=== PATIENT | female | born 1960 | race American Indian/Alaskan Native ===

== ENCOUNTER 2016-06-25 07:47 | Outpatient (CLI) | payer OTHER ==
--- NOTE | 2016-06-25 14:33 | PET Report ---
PET/CT:06/25/16 07:47:00 CLINICAL: Breast cancer restaging. Left axillary recurrence. RADIOPHARMACEUTICAL: 14.08mCi F18-FDG. COMPARISON: 03/19/16 PET/CT TECHNIQUE- Following intravenous injection of F-18 FDG and an approximately 60 minute uptake period, CT and PET images from the mid skull to the upper thighs were acquired with the patient in the fasted state. No contrast was administered. The CT protocol used for this PET CT study is designed for attenuation correction and anatomic localization of PET abnormalities. This personnel assistant CT is not desired to produce and cannot replace, [id number] diagnostic CT scans with specific imaging protocols for different body parts and indications. Plasma glucose at the time of this test: 116 g/dl. The standardized uptake values (SUV) are normalized to patient body weight and indicate the highest activity concentration (SUV max) in a given disease site. FINDINGS: Brain--Physiologic FDG uptake in the visualized regions of the brain. Neck--Physiologic FDG uptake . Chest--Physiologic FDG uptake in mediastinal blood pool and myocardium. Lungs--No abnormal uptake. Stable noncalcified non-FDG avid 5 mm left upper lobe lung nodule. Pleura/pericardium--No abnormal uptake. Thoracic nodes--Decreased FDG uptake in three left subpectoral lymph nodes. The previously described FDG avid left axillary mass has decreased in size with decreased FDG uptake.The mass measures approximately 3.2 x 2.2 x 3.8 cm with SUV 5.0 compared to 4.1 x 3.7 x 4.4 cm and SUV 8.7. Hepatobiliary--No abnormal uptake. liver background SUV mean, as a reference for comparing FDG studies, is 4.0 compared to 3.9 on the last exam. No liver mass. Spleen--No abnormal uptake. Pancreas--No abnormal uptake. Adrenal Glands--No abnormal uptake. Kidneys/Ureters/Bladder--No abnormal uptake. Abdominopelvic Nodes--No abnormal uptake. Bowel/Peritoneum/Mesentery--No abnormal uptake. Pelvic organs--No abnormal uptake. Bones/Soft Tissues--No abnormal uptake. Other findings: IMPRESSION- 1. Persistent left axillary mass but a smaller mass with decreased FDG uptake. 2. Persistent FDG avid left subpectoral lymph nodes with lower SUV. 3. A stable 5 mm non-FDG avid left upper lobe lung nodule. 4. No new findings.
== END 2016-06-25 07:48 | disposition home or self-care (01) ==
LOC: PET 07:47
PROVIDERS: ATTEND Internal Medicine Hematology & Oncology
DX: C50.112 Malignant neoplasm of central portion of left female breast (principal); G62.9 Polyneuropathy, unspecified; R91.1 Solitary pulmonary nodule
CPT/HCPCS: 78815; 82962; A9552

== ENCOUNTER 2016-10-15 11:15 | Outpatient (CLI) | payer OTHER ==
--- NOTE | 2016-10-15 15:16 | PET Report ---
PET SB TO MT SUBSEQUENT: HISTORY: Breast cancer. TECHNIQUE: 13.3 millicuries F-18 FDG was administered intravenously. Noncontrast CT images and PET images were obtained from the skull base to the proximal thighs. Fused images were reviewed on a workstation. The patient's blood glucose level measured 119. COMPARISON: 06/25/16. FINDINGS: BRAIN: physiologic FDG uptake in the imaged brain. NECK: physiologic FDG uptake. MEDIASTINUM: physiologic FDG uptake. LUNGS: There are two 5 mm subpleural nodules in the lateral left upper lobe which are hypometabolic and unchanged since the previous exam. No new or suspicious lung nodule. PLEURA/PERICARDIUM: physiologic FDG uptake. THORACIC LYMPH NODES: Left axillary mass or lymph nodes appear stable in size measuring 3.8 x 3.1 cm. Max SUV has increased from 5.9 to 6.8. A few small left subpectoral lymph nodes are stable in size and metabolic activity with SUV measuring 3.6. No new thoracic adenopathy. HEPATOBILIARY: physiologic FDG uptake. Mean liver SUV measures 4.2. PANCREAS: physiologic FDG uptake. SPLEEN: physiologic FDG uptake. ADRENAL GLANDS: physiologic FDG uptake. KIDNEYS/RENAL COLLECTING SYSTEMS: physiologic FDG uptake. BOWEL/MESENTERY: physiologic FDG uptake. PELVIC VISCERA: physiologic FDG uptake. ABDOMINAL/PELVIC LYMPH NODES: physiologic FDG uptake. MUSCULOSKELETAL: physiologic FDG uptake. IMPRESSION: Mild progression of disease is demonstrated since 06/25/16. The left axillary mass or adenopathy is stable in size but demonstrates slight increase in metabolic activity. Small left subpectoral lymph nodes are stable. Stable left upper lobe nodules which are probably benign. No new areas of disease.
== END 2016-10-15 11:16 | disposition home or self-care (01) ==
LOC: PET 11:15
PROVIDERS: ATTEND Internal Medicine Hematology & Oncology
DX: C50.112 Malignant neoplasm of central portion of left female breast (principal); R91.1 Solitary pulmonary nodule; E11.9 Type 2 diabetes mellitus without complications; I10 Essential (primary) hypertension; Z79.899 Other long term (current) drug therapy
CPT/HCPCS: 78815; 82962; A9552

== ENCOUNTER 2016-11-03 13:27 | Emergency (ER) | payer OTHER ==
--- NOTE | 2016-11-03 13:36 | Emergency Department Report ---
Chief Complaint: Syncope Stated Complaint: PASSED OUT/HIT HEAD Time Seen by Provider: 11/03/16 13:29 - HPI History of Present Illness: PT states she blackout on Wednesday while in her mother's kitchen. PT states she was standing up and then woke up on the floor. Witnessed by granddaughter PT states since Wednesday, pt has had intermittent dizziness . PT reports vertigo last night when laying down - ROS Review of Systems: + syncope + neck pain - Exam Physical Exam: pt is alert and appropriate gcs 15 no post mid line C-spine tenderness MSE screening note: Focused history and physical exam performed. Due to findings the following was ordered: ct, ekg, labs ED Disposition for MSE Condition: Stable
[2016-11-03 15:05] LABS: Basophils % (Auto) 1.6 % (0.0-1.8); Hematocrit 36.9 % (30.3-42.9); Hemoglobin 12.2 gm/dl (10.1-14.3); Mean Corpuscular HGB Conc 33 % (30-34); Mean Corpuscular Hemoglobin 31 pg (28-32); Mean Corpuscular Volume 95 fl (79-97); Red Blood Count 3.88 M/mm3 (3.65-5.03); Red Cell Distribution Width 17.7 % (13.2-15.2); White Blood Count 4.8 K/mm3 (4.5-11.0)
[2016-11-03 15:15] LABS: INR 0.85 (0.87-1.13)
[2016-11-03 15:16] LABS: Partial Thromboplastin Time < 20.0 Sec. (24.2-36.6)
[2016-11-03 15:19] LABS: Alanine Aminotransferase 22 units/L (7-56); Albumin 4.1 g/dL (3.9-5); Albumin/Globulin Ratio 1.1 %; Alkaline Phosphatase 57 units/L (35-129); Anion Gap 19 mmol/L; BUN/Creatinine Ratio 15.71; Blood Urea Nitrogen 11 mg/dL (7-17); Calcium 9.3 mg/dL (8.4-10.2); Carbon Dioxide 23 mmol/L (22-30); Glucose 128 mg/dL (65-100); Potassium 3.4 mmol/L (3.6-5.0); Sodium 138 mmol/L (137-145); Total Protein 7.7 g/dL (6.3-8.2)
[2016-11-03 15:46] LABS: Platelet Count 162 K/mm3 (140-440)
--- NOTE | 2016-11-03 15:49 | Cat Scan Report ---
CRANIAL CT SCAN: History: Syncope. Serial contiguous axial images were obtained through the cranium. Intravenous contrast material was not administered. The ventricles are normal in size and appearance. There is no mass effect or midline shift. No areas of abnormally increased or decreased attenuation are seen. No mass lesion is seen. The mastoid air cells and visualized portions of the sinuses are normal. IMPRESSION: Cranial CT scan within normal limits.
--- NOTE | 2016-11-03 15:55 | Cat Scan Report ---
CT of the cervical spine without contrast. History: Neck pain after syncope. Findings: There is no evidence of fracture or subluxation. Multilevel spondylosis is seen in the lower cervical spine, most pronounced at C56 and 67. A prominent osteophyte/ disc complex is seen at C5-6 on the left. Similar but less pronounced finding is seen at C6-7 on the left. 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 There is no evidence of fracture. Impression: No acute findings. Multilevel spondylosis in the lower cervical spine is described.
--- NOTE | 2016-11-04 00:22 | Emergency Department Report ---
ED Dizziness HPI - General Chief Complaint: Syncope Stated Complaint: PASSED OUT/HIT HEAD Time Seen by Provider: 11/03/16 13:29 Source: patient Mode of arrival: Ambulatory Limitations: No Limitations - History of Present Illness Initial Comments: 56 years old female coming was dizziness she stated that it started on Wednesday patient fell hit her head in her dizziness get worse since then. The patient is breast cancer on chemotherapy. She denied any focal weakness or numbness or tingling sensation no loss of consciousness no other injury she stated that when she walks she feels the room is spinning never had any history of similar condition before. Complaint: dizziness, lightheadedness - Related Data Home Medications Medication Instructions Recorded Confirmed Last Taken Biotin 5,000 mcg PO BID 01/01/16 01/01/16 01/07/16 Cholecalciferol Vit D3 [Vitamin D3] 1,000 unit PO QDAY 01/01/16 01/01/16 Cyanocobalamin [Vitamin B-12] 500 mcg PO DAILY 01/01/16 01/01/16 01/07/16 Pregabalin [Lyrica] 150 mg PO BID 01/01/16 01/01/16 01/07/16 Previous Rx's Medication Instructions Recorded Last Taken Type HYDROcodone/APAP 5-325 [Wendel 1 each PO Q6HR PRN #30 tablet 01/08/16 Unknown Rx 5/325] Meclizine [Antivert] 25 mg PO TID PRN #20 tablet 11/04/16 Unknown Rx Allergies Allergy/AdvReac Type Severity Reaction Status Date / Time No Known Allergies Allergy Verified 01/08/16 06:35 ED Review of Systems ROS: Stated complaint: PASSED OUT/HIT HEAD Other details as noted in HPI Comment: All other systems reviewed and negative Constitutional: denies: chills, fever ENT: denies: ear pain, throat pain, hearing loss Respiratory: denies: cough, shortness of breath Cardiovascular: denies: chest pain, palpitations Gastrointestinal: denies: abdominal pain, nausea, vomiting, diarrhea Genitourinary: denies: dysuria, frequency Neurological: denies: headache ED Past Medical Hx - Past Medical History Hx Hypertension: Yes Hx CVA: No Hx Congestive Heart Failure: No Hx Diabetes: Yes (FOR 4 YRS, DIET CONTROLLED) Hx Deep Vein Thrombosis: No Hx Arthritis: No Hx Seizures: No Hx Asthma: No Hx HIV: No - Surgical History Additional Surgical History: bilateral breast Ca with removal,with active ca in left lymph nodes-Chemo - Social History Smoking Status: Never Smoker Substance Use Type: None - Medications Home Medications: Home Medications Medication Instructions Recorded Confirmed Last Taken Type Biotin 5,000 mcg PO BID 01/01/16 01/01/16 01/07/16 History Cholecalciferol Vit D3 [Vitamin D3] 1,000 unit PO QDAY 01/01/16 01/01/16 History Cyanocobalamin [Vitamin B-12] 500 mcg PO DAILY 01/01/16 01/01/16 01/07/16 History Pregabalin [Lyrica] 150 mg PO BID 01/01/16 01/01/16 01/07/16 History HYDROcodone/APAP 5-325 [Wendel 1 each PO Q6HR PRN #30 tablet 01/08/16 Unknown Rx 5/325] Meclizine [Antivert] 25 mg PO TID PRN #20 tablet 11/04/16 Unknown Rx ED Physical Exam - General Limitations: No Limitations General appearance: alert, in no apparent distress - Head Head exam: Present: atraumatic - Eye Eye exam: Present: normal appearance - ENT ENT exam: Present: normal exam - Neck Neck exam: Present: normal inspection. Absent: tenderness, meningismus, full ROM - Respiratory Respiratory exam: Present: normal lung sounds bilaterally. Absent: respiratory distress, wheezes, rales, rhonchi, stridor, chest wall tenderness, accessory muscle use, decreased breath sounds, prolonged expiratory - Cardiovascular Cardiovascular Exam: Present: tachycardia - GI/Abdominal GI/Abdominal exam: Present: soft. Absent: distended, tenderness, guarding, rebound, organomegaly, mass, bruit, pulsatile mass, hernia - Extremities Exam Extremities exam: Present: full ROM. Absent: tenderness, pedal edema - Back Exam Back exam: Present: normal inspection. Absent: tenderness, CVA tenderness (R), CVA tenderness (L), muscle spasm, paraspinal tenderness, vertebral tenderness - Neurological Exam Neurological exam: Present: alert, oriented X3, CN II-XII intact, normal gait, reflexes normal. Absent: motor sensory deficit - Skin Skin exam: Present: warm, dry, intact ED Course Vital Signs 11/03/16 11/04/16 11/04/16 13:31 00:05 00:09 Temperature 98.8 F 98.4 F Pulse Rate 112 H 94 H Respiratory 20 18 Rate Blood Pressure 147/96 127/70 Blood Pressure 127/70 [Right] O2 Sat by Pulse 100 98 Oximetry 11/04/16 11/04/16 11/04/16 00:15 02:11 02:15 Temperature Pulse Rate Respiratory Rate Blood Pressure 136/84 136/84 136/84 Blood Pressure [Right] O2 Sat by Pulse 100 95 97 Oximetry 11/04/16 11/04/16 02:31 04:42 Temperature 97.6 F Pulse Rate 95 H Respiratory 16 Rate Blood Pressure 136/84 Blood Pressure 119/65 [Right] O2 Sat by Pulse 97 99 Oximetry - Reevaluation(s) Reevaluation #1: 11/04/16 05:41 Patient stated that she is feeling much better improved with the medication no dizziness. Will discharge patient home to follow-up with her oncologist as scheduled. ED Medical Decision Making - Lab Data Result diagrams: 11/03/16 14:15 11/03/16 14:15 Critical care attestation.: If time is entered above; I have spent that time in minutes in the direct care of this critically ill patient, excluding procedure time. ED Disposition Clinical Impression: Dizziness Disposition: DC-01 TO HOME OR SELFCARE Is pt being admited?: No Does the pt Need Aspirin: No Condition: Stable Instructions: Dizziness (ED) Prescriptions: Meclizine [Antivert] 25 mg PO TID PRN #20 tablet PRN Reason: Vertigo Referrals: DR DEMARCUS [Other] - 3-5 Days
[2016-11-04 00:44] LABS: Bacteria,Urine 1+ /HPF (Negative); Bilirubin,Urine NEG (Negative); Blood,Urine SM (Negative); Ketones,Urine TR mg/dL (Negative); Leukocyte Esterase,Urine TR (Negative); Mucus,Urine FEW /HPF; Nitrite,Urine NEG (Negative); Protein,Urine <15 mg/dL mg/dL (Negative); Urobilinogen,Urine < 2.0 mg/dL (<2.0)
[2016-11-04] MEDS: ANTIVERT PO ONE (01:12)
[2016-11-04] MEDS: NACL 0.9% 1000 ML 1,000 ML IV ONE (01:12)
--- NOTE | 2016-11-04 05:29 | Cat Scan Report ---
FINAL REPORT PROCEDURE: CT ANGIO CHEST TECHNIQUE: Computerized axial tomographic angiography of the chest and pulmonary arteries was performed after the IV injection of iodinated nonionic contrast. The image data was postprocessed using maximum intensity projection (MIP) and 2-dimensional multiplanar reformatted (MPR) techniques. The examination is specifically tailored to the evaluation of the pulmonary arteries per clinical request. HISTORY: Short of breath 786.09, chest pain 786.50, CHEST PAIN WITH SYNCOPE COMPARISON: No prior studies are available for comparison. FINDINGS: Heart and pericardium: Normal. Thoracic aorta: Normal. Pulmonary vasculature: Normal. No pulmonary emboli. Lymph nodes: No enlarged thoracic lymph nodes. Lungs: Lungs are expanded. There is a 12 millimeter pleural-based nodular density in the left upper lung which could be focal pleural thickening, scarring, infiltrate or nodule. There is a 2nd nodule in the left upper lung measuring 8 millimeters. There is a 3rd noncalcified nodule at the left lung base measuring 9 millimeters. Possibility of metastatic malignancy cannot be excluded.. Pleural space: There are no effusions or pneumothoraces.. There are are bilateral breast implants. There are surgical clips in the left axilla. There is a 4 centimeter left axillary mass. Malignancy cannot be excluded. IMPRESSION: There is no pulmonary embolism. There is no thoracic aortic aneurysm or dissection.. There are no infiltrates, effusions or pneumothoraces. There are 3 left-sided pulmonary nodules. There is a mass in the left axilla. Metastatic malignancy cannot be excluded.
[2016-11-04 06:02] VITALS: BP 113/65
== END 2016-11-04 06:10 | disposition home or self-care (01) ==
LOC: ED 13:27
DX: R42 Dizziness and giddiness (principal); E11.9 Type 2 diabetes mellitus without complications; I10 Essential (primary) hypertension; C50.919 Malignant neoplasm of unspecified site of unspecified female breast
CPT/HCPCS: 36415; 70450; 71275; 72125; 80053; 81001; 84484; 85025; 85379; 85610; 85730; 93005; 93010; 96360; 99284; J7030; Q9967

== ENCOUNTER 2017-05-06 08:13 | Outpatient (CLI) | payer MEDICAID ==
[2017-05-06] MEDS ORDERED: FLUSH HEPARIN IV ONE ×2 (11:20→11:22)
--- NOTE | 2017-05-10 13:30 | PET Report ---
PET/CT:05/06/17 08:13:00 CLINICAL: Breast cancer restaging. History of left axillary recurrence. RADIOPHARMACEUTICAL: 15.12mCi F18-FDG. COMPARISON: 01/07/17 PET/CT TECHNIQUE- Following intravenous injection of F-18 FDG and an approximately 60 minute uptake period, CT and PET images from the mid skull to the upper thighs were acquired with the patient in the fasted state. No contrast was administered. The CT protocol used for this PET CT study is designed for attenuation correction and anatomic localization of PET abnormalities. This injection press operator CT is not desired to produce and cannot replace, [id number]-art diagnostic CT scans with specific imaging protocols for different body parts and indications. Plasma glucose at the time of this test: 96g/dl. The standardized uptake values (SUV) are normalized to patient body weight and indicate the highest activity concentration (SUV max) in a given disease site. FINDINGS: Brain--Physiologic FDG uptake in the visualized regions of the brain. Neck--Physiologic FDG uptake in mucosal structures. Chest--Physiologic FDG uptake in mediastinal blood pool and myocardium. Lungs--The previously identified FDG avid left upper lobe lung nodule now measures 1.2 x 0.8 cm with SUV 2.0 compared to 1.0 cm and SUV 2.9 on the last exam. A second pleural-based left upper lobe nodule measures 1.2 x 1.0 cm with SUV 2.3 compared to 0.8 and no FDG uptake on the last exam. Pleura/pericardium--No abnormal uptake. Thoracic nodes--The previously described left subclavian FDG avid soft tissue mass has increased in size and measures approximately 5.2 x 4.7 cm in the axial plane with SUV 11.2 compared to 4.5 x 3.2 cm and SUV 8.0 a last exam. The mass is actually larger in the coronal plane and extends to abut more of the left breast implant. There is also new fluid at the upper posterior aspect of the implant. Hepatobiliary--No abnormal uptake. Liver background SUV mean, as a reference for comparing FDG studies, is 3.7 compared to 3.1 on the last exam. No liver mass. Spleen--No abnormal uptake. Pancreas--No abnormal uptake. Adrenal Glands--No abnormal uptake. Kidneys/Ureters/Bladder--No abnormal uptake. Abdominopelvic Nodes--No abnormal uptake. Bowel/Peritoneum/Mesentery--No abnormal uptake. Pelvic organs--No abnormal uptake. Bones/Soft Tissues--No abnormal uptake. No suspicious bone lesions. Other findings: IMPRESSION-Progression of disease with increased size and increased FDG uptake in known left axillary tumor. Increased size of two left upper lobe lung nodules. Both nodules are now FDG avid but SUV values are mixed. No evidence of hepatic or skeletal metastasis.
== END 2017-05-06 08:14 | disposition home or self-care (01) ==
LOC: PET 08:13
PROVIDERS: ATTEND Internal Medicine Hematology & Oncology
DX: C50.112 Malignant neoplasm of central portion of left female breast (principal); G62.9 Polyneuropathy, unspecified; R91.1 Solitary pulmonary nodule; R91.8 Other nonspecific abnormal finding of lung field; Z98.82 Breast implant status; Z79.899 Other long term (current) drug therapy
CPT/HCPCS: 78815; 82962; A9552; J1642

== ENCOUNTER 2017-05-14 11:28 | Inpatient (IN) | payer MEDICAID ==
[2017-05-14 13:17] LABS: Basophils % (Auto) 0.7 % (0.0-1.8); Eosinophils % (Auto) 0.4 % (0.0-4.3); Hematocrit 34.3 % (30.3-42.9); Hemoglobin 11.3 gm/dl (10.1-14.3); Lymphocytes # (Auto) 0.8 K/mm3 (1.2-5.4); Lymphocytes % (Auto) 21.6 % (13.4-35.0); Mean Corpuscular HGB Conc 33 % (30-34); Mean Corpuscular Hemoglobin 30 pg (28-32); Mean Corpuscular Volume 90 fl (79-97); Monocytes # (Auto) 0.4 K/mm3 (0.0-0.8); Monocytes % (Auto) 11.5 % (0.0-7.3); Platelet Count 241 K/mm3 (140-440); Red Blood Count 3.81 M/mm3 (3.65-5.03); Red Cell Distribution Width 18.9 % (13.2-15.2)
[2017-05-14 13:32] LABS: BUN/Creatinine Ratio 24; Blood Urea Nitrogen 12 mg/dL (7-17); Calcium 9.4 mg/dL (8.4-10.2); Hemolysis Index 13
--- NOTE | 2017-05-14 13:39 | Cat Scan Report ---
CT HEAD WITHOUT CONTRAST: HISTORY: Dizziness, fall. TECHNIQUE: Sequential 2.5mm CT images. COMPARISON: 11/03/16. FINDINGS: Cerebral Parenchyma: Within normal limits. Cerebellum: There is an ill-defined area of edema in the right cerebellar hemisphere measuring up to 4.1 x 3.7 cm. There is mild mass effect on the fourth ventricle. Brainstem: Within normal limits. Ventricles: The ventricles are at the upper limits of normal size and have increased slightly since 11/03/16. Sella: Normal. Extra-axial spaces: Normal. Basal Cisterns: Normal. Intracranial Hemorrhage: None. Midline Shift: None. Calvarium: Normal. Sinuses: Normal. Mastoid Air Cells: Normal. Visualized Orbits: Normal. IMPRESSION: Ill-defined area of edema in the right cerebellar hemisphere concerning for an underlying tumor. Ischemic insult could be considered but is thought less likely. Followup MRI with contrast is recommended.
[2017-05-14] MEDS ORDERED: NACL 0.9% 1000 ML 1,000 ML IV ONE (14:03)
[2017-05-14 14:50] LABS: INR 0.91 (0.87-1.13)
[2017-05-14 14:51] LABS: Partial Thromboplastin Time 24.7 Sec. (24.2-36.6)
--- NOTE | 2017-05-14 16:53 | Emergency Department Report ---
HPI <AGA SCHULTE - Last Filed: 05/14/17 23:15> - HPI HPI: 57-year-old -[place] female with a history of high blood pressure presents to ED, with severe dizziness. Symptoms started about 3 hours prior to presentation. She almost fell, due to her symptoms she presented to ED. She denies any chest pain, shortness of breath, nausea, vomiting, diaphoresis. She has a history of hypertension and has been compliant with her medication. She denies any focal weakness. <LUISA WHITE - Last Filed: 05/21/17 21:03> - General Chief Complaint: Dizziness Time Seen by Provider: 05/14/17 14:00 ED Past Medical Hx <AGA SCHULTE - Last Filed: 05/14/17 23:15> - Past Medical History Hx Hypertension: Yes Hx CVA: No Hx Congestive Heart Failure: No Hx Diabetes: Yes Hx Deep Vein Thrombosis: No Hx of Cancer: Yes (breast) Hx Arthritis: No Hx Seizures: No Hx Asthma: No Hx HIV: No - Surgical History Additional Surgical History: bilateral breast Ca with removal,with active ca in left lymph nodes-Chemo - Social History Smoking Status: Never Smoker Substance Use Type: None <LUISA WHITE - Last Filed: 05/21/17 21:03> - Medications Home Medications: Home Medications Medication Instructions Recorded Confirmed Last Taken Type Acetaminophen [Acetaminophen TAB] 650 mg PO Q4H PRN tablet 05/18/17 Unknown Rx Cholecalciferol Vit D3 [Vitamin D3] 1,000 unit PO QDAY tablet 05/18/17 Unknown Rx Cyanocobalamin [Vitamin B-12] 500 mcg PO QDAY tablet 05/18/17 Unknown Rx Dexamethasone [Decadron] 4 mg IV Q6HR vial 05/18/17 Unknown Rx Docusate Sodium [Colace CAP] 100 mg PO BID capsule 05/18/17 Unknown Rx Duloxetine HCl [Irenka] 40 mg PO DAILY 05/18/17 Unknown Rx Famotidine [Pepcid] 20 mg PO QDAY tablet 05/18/17 Unknown Rx HYDROcodone/APAP 5-325 [[place] 1 each PO Q6HR PRN tablet 05/18/17 Unknown Rx 5-325 mg TAB] Meclizine [Antivert] 25 mg PO TID PRN tablet 05/18/17 Unknown Rx Ondansetron [Zofran INJ] 4 mg IV Q4H PRN vial 05/18/17 Unknown Rx Pregabalin [Lyrica] 150 mg PO BID capsule 05/18/17 Unknown Rx ED Review of Systems ROS: Stated complaint: DIZZINESS Other details as noted in HPI <AGA SCHULTE - Last Filed: 05/14/17 23:15> ROS: Stated complaint: DIZZINESS Other details as noted in HPI Comment: All other systems reviewed and negative Gastrointestinal: denies: abdominal pain, nausea, vomiting Genitourinary: denies: urgency, dysuria Neurological: other (dizziness). denies: headache, weakness <LUISA WHITE - Last Filed: 05/21/17 21:03> Physical Exam - Physical Exam Vital Signs: Vital Signs 05/14/17 05/14/17 05/14/17 11:32 12:41 12:45 Temperature 97.5 F L Pulse Rate 121 H Respiratory 16 Rate Blood Pressure 152/97 137/85 Blood Pressure [Right] O2 Sat by Pulse 98 98 98 Oximetry 05/14/17 05/14/17 05/14/17 14:53 15:00 15:15 Temperature Pulse Rate Respiratory Rate Blood Pressure 132/92 131/88 131/88 Blood Pressure [Right] O2 Sat by Pulse 97 97 100 Oximetry 05/14/17 05/14/17 05/14/17 15:30 15:45 16:00 Temperature Pulse Rate Respiratory Rate Blood Pressure 145/88 131/88 143/97 Blood Pressure [Right] O2 Sat by Pulse 98 97 98 Oximetry 05/14/17 05/14/17 05/14/17 16:15 16:30 16:45 Temperature Pulse Rate Respiratory Rate Blood Pressure 143/97 141/98 141/98 Blood Pressure [Right] O2 Sat by Pulse 99 99 100 Oximetry 05/14/17 05/14/17 05/14/17 17:00 18:01 18:15 Temperature Pulse Rate Respiratory Rate Blood Pressure 143/95 136/85 136/85 Blood Pressure [Right] O2 Sat by Pulse 98 100 98 Oximetry 05/14/17 05/14/17 05/14/17 18:30 18:45 19:00 Temperature Pulse Rate Respiratory Rate Blood Pressure 129/91 129/91 137/87 Blood Pressure [Right] O2 Sat by Pulse 98 98 98 Oximetry 05/14/17 05/14/17 05/14/17 19:10 19:15 19:31 Temperature 98.1 F Pulse Rate 97 H 95 H Respiratory 18 16 Rate Blood Pressure 137/87 139/91 Blood Pressure 137/87 [Right] O2 Sat by Pulse 97 98 97 Oximetry 05/14/17 05/14/17 05/14/17 19:45 20:00 20:15 Temperature Pulse Rate 96 H 96 H 103 H Respiratory 17 17 20 Rate Blood Pressure 139/91 138/86 138/86 Blood Pressure [Right] O2 Sat by Pulse 96 99 98 Oximetry 05/14/17 05/14/17 05/14/17 21:03 21:15 21:30 Temperature Pulse Rate 100 H 96 H Respiratory 16 17 Rate Blood Pressure 125/86 125/86 144/94 Blood Pressure [Right] O2 Sat by Pulse 99 97 Oximetry 05/14/17 05/14/17 05/14/17 21:45 22:00 22:15 Temperature Pulse Rate 97 H 95 H 100 H Respiratory 17 18 12 Rate Blood Pressure 138/86 141/96 141/96 Blood Pressure [Right] O2 Sat by Pulse 98 98 99 Oximetry 05/14/17 22:30 Temperature Pulse Rate 97 H Respiratory 16 Rate Blood Pressure 156/99 Blood Pressure [Right] O2 Sat by Pulse 97 Oximetry <AGA SCHULTE - Last Filed: 05/14/17 23:15> - Physical Exam Vital Signs: Vital Signs 05/14/17 05/14/17 05/14/17 11:32 12:41 12:45 Temperature 97.5 F L Pulse Rate 121 H Respiratory 16 Rate Blood Pressure 152/97 137/85 O2 Sat by Pulse 98 98 98 Oximetry 05/14/17 05/14/17 14:53 15:00 Temperature Pulse Rate Respiratory Rate Blood Pressure 132/92 131/88 O2 Sat by Pulse 97 97 Oximetry Physical Exam: - Physical Exam Physical Exam: - General Limitations: No Limitations General appearance: alert, in no apparent distress, obese - Head Head exam: Present: atraumatic, normocephalic - Eye Eye exam: Present: normal appearance - ENT ENT exam: Present: mucous membranes moist - Neck Neck exam: Present: normal inspection - Respiratory Respiratory exam: Present: normal lung sounds bilaterally. Absent: respiratory distress - Cardiovascular Cardiovascular Exam: Present: normal rhythm, tachycardia. Absent: systolic murmur, diastolic murmur, rubs, gallop - GI/Abdominal GI/Abdominal exam: Present: soft, normal bowel sounds - Extremities Exam Extremities exam: Present: normal inspection - Back Exam Back exam: Present: normal inspection - Neurological Exam Neurological exam: Present: alert, oriented X3 - Psychiatric Psychiatric exam: normal affect and mood - Skin Skin exam: Present: warm, dry, intact, normal color. Absent: rash <LABADYLUISA - Last Filed: 05/21/17 21:03> ED Course Vital Signs 05/14/17 05/14/17 05/14/17 11:32 12:41 12:45 Temperature 97.5 F L Pulse Rate 121 H Respiratory 16 Rate Blood Pressure 152/97 137/85 Blood Pressure [Right] O2 Sat by Pulse 98 98 98 Oximetry 05/14/17 05/14/17 05/14/17 14:53 15:00 15:15 Temperature Pulse Rate Respiratory Rate Blood Pressure 132/92 131/88 131/88 Blood Pressure [Right] O2 Sat by Pulse 97 97 100 Oximetry 05/14/17 05/14/17 05/14/17 15:30 15:45 16:00 Temperature Pulse Rate Respiratory Rate Blood Pressure 145/88 131/88 143/97 Blood Pressure [Right] O2 Sat by Pulse 98 97 98 Oximetry 05/14/17 05/14/17 05/14/17 16:15 16:30 16:45 Temperature Pulse Rate Respiratory Rate Blood Pressure 143/97 141/98 141/98 Blood Pressure [Right] O2 Sat by Pulse 99 99 100 Oximetry 05/14/17 05/14/17 05/14/17 17:00 18:01 18:15 Temperature Pulse Rate Respiratory Rate Blood Pressure 143/95 136/85 136/85 Blood Pressure [Right] O2 Sat by Pulse 98 100 98 Oximetry 05/14/17 05/14/17 05/14/17 18:30 18:45 19:00 Temperature Pulse Rate Respiratory Rate Blood Pressure 129/91 129/91 137/87 Blood Pressure [Right] O2 Sat by Pulse 98 98 98 Oximetry 05/14/17 05/14/17 05/14/17 19:10 19:15 19:31 Temperature 98.1 F Pulse Rate 97 H 95 H Respiratory 18 16 Rate Blood Pressure 137/87 139/91 Blood Pressure 137/87 [Right] O2 Sat by Pulse 97 98 97 Oximetry 05/14/17 05/14/17 05/14/17 19:45 20:00 20:15 Temperature Pulse Rate 96 H 96 H 103 H Respiratory 17 17 20 Rate Blood Pressure 139/91 138/86 138/86 Blood Pressure [Right] O2 Sat by Pulse 96 99 98 Oximetry 05/14/17 05/14/17 05/14/17 21:03 21:15 21:30 Temperature Pulse Rate 100 H 96 H Respiratory 16 17 Rate Blood Pressure 125/86 125/86 144/94 Blood Pressure [Right] O2 Sat by Pulse 99 97 Oximetry 05/14/17 05/14/17 05/14/17 21:45 22:00 22:15 Temperature Pulse Rate 97 H 95 H 100 H Respiratory 17 18 12 Rate Blood Pressure 138/86 141/96 141/96 Blood Pressure [Right] O2 Sat by Pulse 98 98 99 Oximetry 05/14/17 22:30 Temperature Pulse Rate 97 H Respiratory 16 Rate Blood Pressure 156/99 Blood Pressure [Right] O2 Sat by Pulse 97 Oximetry <AGA SCHULTE - Last Filed: 05/14/17 23:15> Vital Signs 05/14/17 05/14/17 05/14/17 11:32 12:41 12:45 Temperature 97.5 F L Pulse Rate 121 H Respiratory 16 Rate Blood Pressure 152/97 137/85 O2 Sat by Pulse 98 98 98 Oximetry 05/14/17 05/14/17 14:53 15:00 Temperature Pulse Rate Respiratory Rate Blood Pressure 132/92 131/88 O2 Sat by Pulse 97 97 Oximetry <LUISA WHITE - Last Filed: 05/21/17 21:03> ED Medical Decision Making - Lab Data Result diagrams: 05/14/17 13:07 05/14/17 13:07 - Medical Decision Making Patient was turned over my care awaiting MRI results MRI does show a cerebellar mass with some edema and some mass effect. Patient is awake alert oriented 3 good airway not somnolent I did this case with Dr. merritt recommends admission. 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 Patient was amenable to this she will be given some Decadron and neuro checks and case will be discussed with the hospitalist for admit, pt is afebrile and stable airway, no somnolence or intractable n/v at this time <AGA SCHULTE - Last Filed: 05/14/17 23:15> - Lab Data Result diagrams: 05/19/17 05:45 05/19/17 05:45 <LUISA WHITE - Last Filed: 05/21/17 21:03> Critical care attestation.: If time is entered above; I have spent that time in minutes in the direct care of this critically ill patient, excluding procedure time. <AGA SCHULTE - Last Filed: 05/14/17 23:15> Critical care attestation.: If time is entered above; I have spent that time in minutes in the direct care of this critically ill patient, excluding procedure time. <LUISA WHITE - Last Filed: 05/21/17 21:03> ED Disposition Is pt being admited?: Yes Time of Disposition: 23:20 <AGA SCHULTE - Last Filed: 05/14/17 23:15> Is pt being admited?: Yes Does the pt Need Aspirin: No <LUISA WHITE - Last Filed: 05/21/17 21:03> Clinical Impression: Dizziness, Cerebellar mass, Breast CA Disposition: -09 OP ADMIT IP TO THIS HOSP Condition: Stable
--- NOTE | 2017-05-14 22:29 | Magnetic Resonance Report ---
FINAL REPORT EXAM: MR BRAIN WO/W CON HISTORY: SEVERE DIZZINESS, ABNORMAL CT dizziness, headaches, history of breast cancer TECHNIQUE: Multiplanar multisequence pre and post gadolinium MR images of the brain were performed. 15 mL MultiHance was utilized for contrast enhancement. Comparison: None FINDINGS: There is an enhancing 1.8 x 1.6 x 2.1 centimeter heterogeneously iso to hypointense T1, hypointense T2, and heterogeneously lobular enhancing contrasted right cerebellar mass with significant perianal edema causing mass effect on the 4th ventricle and dorsal right vicki. There is edema of the cerebellar folia. There is effacement of the right ambient cistern, cerebral aqua duct, and medulla oblongata but no evidence for hydrocephalus. The right superior and middle cerebellar peduncles are distorted. Cerebellar tonsils are displaced. The degree of edema remote from lesion suggests there may be additional smaller lesions closer to the midline. There is subtle increased postcontrast T1 midline cerebellar T1 signal which is felt to represent artifact from flow rather than additional metastatic foci. There is no subarachnoid seeding identified. There is scattered bilateral periventricular white matter foci of prolonged T2 signal intensity and periventricular white matter prolonged FLAIR signal intensity. None of these additional supratentorial lesions enhance and are therefore more suggestive of a small vessel ischemic process rather than metastatic disease. Incidental identified cavum vergae. There is fluid and mucosal thickening of the right sphenoid sinus. The remaining paranasal sinuses are well aerated. Cerebellopontine angles are within normal limits. There are normal supratentorial and infratentorial T2 flow voids. Dural venous sinuses are patent. IMPRESSION: 1.8 x 1.6 x 1.2 centimeter right cerebellar hemispheric enhancing lesion with significant surrounding edema and mass effect. Questionable midline posterior fossa subtle enhancing second lesion possibly of the vermis which could help account for the additional edema and mass-effect on the ambient cisterns/aqua duct, cerebellar peduncles. Scattered periventricular and subcortical white matter foci of prolonged FLAIR signal intensity that do not show focal restriction of the diffusion and do not show enhancement more compatible with small vessel ischemic disease, slightly advanced for the patient's age. Right sphenoid sinusitis.
[2017-05-14] MEDS ORDERED: DECADRON IV ONE (22:55)
[2017-05-14] MEDS ORDERED: ZOFRAN IV ONE (23:29)
[2017-05-15] MEDS ORDERED: TYLENOL PO PRN (00:53)
[2017-05-15] MEDS ORDERED: ZOFRAN IV PRN (00:53)
[2017-05-15] MEDS ORDERED: ANTIVERT PO PRN (01:43)
[2017-05-15] MEDS: NORCO 5/325 PO PRN (03:04)
[2017-05-15] MEDS ORDERED: NON-FORMULARY (Pregabalin [Lyrica] 150 MG) PO SCH (10:00)
[2017-05-15] MEDS ORDERED: NON-FORMULARY (Biotin [Biotin] 5,000 MCG) PO SCH (10:00)
[2017-05-15] MEDS ORDERED: VITAMIN B-12 PO SCH (10:00)
--- NOTE | 2017-05-15 10:38 | Progress Note ---
Assessment and Plan Assessment and plan: Right cerebellar lesion with significant edema and mass effect. Etiology likely static breast CA. Start Decadron every 6 hours. Neurology consultation. Patient may need further transferred to facility with neurosurgery coverage. We will discuss with oncology plan of care. Metastatic Left breast cancer. Patient is stage III left breast cancer status post bilateral total mastectomy and left axillary lymph node dissection in April 2010. Also, status post chemotherapy and left axillary mass excision December 2015. Oncology consultation pending. History Interval history: Patient reports that her dizziness has resolved. Hospitalist Physical - Constitutional Vitals: Temp Pulse Resp BP Pulse Ox 98.1 F 99 H 18 117/75 96 05/15/17 07:50 05/15/17 07:50 05/15/17 07:50 05/15/17 07:50 05/15/17 07:50 General appearance: Present: no acute distress, well-nourished - EENT Eyes: Present: PERRL, EOM intact ENT: hearing intact, clear oral mucosa, dentition normal - Neck Neck: Present: supple, normal ROM - Respiratory Respiratory effort: normal Respiratory: bilateral: CTA - Cardiovascular Rhythm: regular Heart Sounds: Present: S1 & S2. Absent: gallop, rub - Extremities Extremities: no ischemia, No edema, Full ROM - Abdominal General gastrointestinal: soft, non-tender, non-distended, normal bowel sounds - Integumentary Integumentary: Present: clear, warm, dry - Neurologic Neurologic: CNII-XII intact, moves all extremities Results - Labs CBC & Chem 7: 05/14/17 13:07 05/14/17 13:07 Labs: Laboratory Last Values WBC 3.6 K/mm3 (4.5-11.0) L 05/14/17 13:07 RBC 3.81 M/mm3 (3.65-5.03) 05/14/17 13:07 Hgb 11.3 gm/dl (10.1-14.3) 05/14/17 13:07 Hct 34.3 % (30.3-42.9) 05/14/17 13:07 MCV 90 fl (79-97) 05/14/17 13:07 MCH 30 pg (28-32) 05/14/17 13:07 MCHC 33 % (30-34) 05/14/17 13:07 RDW 18.9 % (13.2-15.2) H 05/14/17 13:07 Plt Count 241 K/mm3 (140-440) 05/14/17 13:07 Lymph % (Auto) 21.6 % (13.4-35.0) 05/14/17 13:07 Clark % (Auto) 11.5 % (0.0-7.3) H 05/14/17 13:07 Eos % (Auto) 0.4 % (0.0-4.3) 05/14/17 13:07 Baso % (Auto) 0.7 % (0.0-1.8) 05/14/17 13:07 Lymph # 0.8 K/mm3 (1.2-5.4) L 05/14/17 13:07 Clark # 0.4 K/mm3 (0.0-0.8) 05/14/17 13:07 Eos # 0.0 K/mm3 (0.0-0.4) 05/14/17 13:07 Baso # 0.0 K/mm3 (0.0-0.1) 05/14/17 13:07 Seg Neutrophils % 65.8 % (40.0-70.0) 05/14/17 13:07 Seg Neutrophils # 2.4 K/mm3 (1.8-7.7) 05/14/17 13:07 PT 12.7 Sec. (12.2-14.9) 05/14/17 14:13 INR 0.91 (0.87-1.13) 05/14/17 14:13 APTT 24.7 Sec. (24.2-36.6) 05/14/17 14:13 Sodium 135 mmol/L (137-145) L 05/14/17 13:07 Potassium 4.6 mmol/L (3.6-5.0) 05/14/17 13:07 Chloride 96.7 mmol/L (98-107) L 05/14/17 13:07 Carbon Dioxide 25 mmol/L (22-30) 05/14/17 13:07 Anion Gap 18 mmol/L 05/14/17 13:07 BUN 12 mg/dL (7-17) 05/14/17 13:07 Creatinine 0.5 mg/dL (0.7-1.2) L 05/14/17 13:07 Estimated GFR > 60 ml/min 05/14/17 13:07 BUN/Creatinine Ratio 24 % 05/14/17 13:07 Glucose 119 mg/dL (65-100) H 05/14/17 13:07 Calcium 9.4 mg/dL (8.4-10.2) 05/14/17 13:07 Troponin T < 0.010 ng/mL (0.00-0.029) 05/14/17 14:13
[2017-05-15] MEDS: LYRICA PO SCH ×2 (10:48→21:11)
[2017-05-15] MEDS: VITAMIN B-12 PO SCH (10:49)
[2017-05-15] MEDS: VITAMIN D3 PO SCH (10:49)
--- NOTE | 2017-05-15 13:23 | Hem/Onc Progress Note ---
Assessment and Plan Case discussed with radiation oncology. We will keep her here for the weekend and Dr. Banks will assess to see if she would be a candidate for gamma knife or stereotactic radiation. Continue steroids. Discussed with patient and patient's family Subjective Date of service: 05/15/17 Interval history: Patient known to me. History of metastatic breast cancer. Patient was getting lymphedema therapy and fell in the clinic and was brought to the hospital. She was found to have brain metastases in the cerebellar area. There was one lesion which was 1.8 x 1.6 x 1.2 cm and possibly another lesion. There was edema and mass effect. Patient is currently on steroids and feels better. Objective - Constitutional Vitals: Last Vital Signs Temp 98.1 F 05/15/17 07:50 Pulse 99 H 05/15/17 07:50 Resp 18 05/15/17 07:50 BP 117/75 05/15/17 07:50 Pulse Ox 96 05/15/17 07:50 Pain Intensity (0-10): denies any pain General appearance: no acute distress Performance status: 3-limited selfcare - Neck Neck: supple - Respiratory Respiratory effort: Positive: normal Respiratory: bilateral: CTA - Cardiovascular Rhythm: regular Extremities: abnormal (left-sided arm lymphedema) - Gastrointestinal General gastrointestinal: Present: soft - Labs Lab Results: Laboratory Results - last 24 hr 05/14/17 05/14/17 05/14/17 13:07 14:13 14:13 PT 12.7 INR 0.91 APTT 24.7 Sodium 135 L Potassium 4.6 Chloride 96.7 L Carbon Dioxide 25 Anion Gap 18 BUN 12 Creatinine 0.5 L Estimated GFR > 60 BUN/Creatinine Ratio 24 Glucose 119 H Calcium 9.4 Troponin T < 0.010
[2017-05-15] MEDS: DECADRON IV SCH ×2 (15:45→18:36)
[2017-05-15] MEDS: PEPCID PO SCH (15:46)
[2017-05-16] MEDS: DECADRON IV SCH ×4 (01:25→17:50)
[2017-05-16 06:42] LABS: Basophils % (Auto) 0.3 % (0.0-1.8); Eosinophils % (Auto) 0.2 % (0.0-4.3); Hematocrit 33.8 % (30.3-42.9); Hemoglobin 11.1 gm/dl (10.1-14.3); Lymphocytes # (Auto) 0.9 K/mm3 (1.2-5.4); Lymphocytes % (Auto) 26.8 % (13.4-35.0); Mean Corpuscular HGB Conc 33 % (30-34); Mean Corpuscular Hemoglobin 30 pg (28-32); Mean Corpuscular Volume 90 fl (79-97); Monocytes # (Auto) 0.3 K/mm3 (0.0-0.8); Platelet Count 282 K/mm3 (140-440); Red Blood Count 3.74 M/mm3 (3.65-5.03); Red Cell Distribution Width 18.8 % (13.2-15.2)
[2017-05-16 07:07] LABS: BUN/Creatinine Ratio 30; Blood Urea Nitrogen 18 mg/dL (7-17); Calcium 9.2 mg/dL (8.4-10.2); Hemolysis Index 33
[2017-05-16] MEDS ORDERED: DULOXETINE HCL 40 MG PO SCH (10:00)
--- NOTE | 2017-05-16 10:02 | Progress Note ---
Assessment and Plan Assessment and plan: Right cerebellar lesion with significant edema and mass effect. Etiology secondary to metastatic breast CA. Cont. Decadron every 6 hours. Neurology consultation in am. Patient may need fto be transferred to facility with neurosurgery coverage. We will discuss with oncology plan of care. ? radiation onc eval in am per pt. Metastatic Left breast cancer. Patient is stage III left breast cancer status post bilateral total mastectomy and left axillary lymph node dissection in April 2010. Also, status post chemotherapy and left axillary mass excision December 2015. Oncology following. History Interval history: Patient reports that her dizziness has resolved. Hospitalist Physical - Constitutional Vitals: Temp Pulse Resp BP Pulse Ox 98.5 F 93 H 18 100/64 97 05/16/17 07:29 05/16/17 07:29 05/16/17 07:29 05/16/17 07:29 05/16/17 07:29 General appearance: Present: no acute distress, well-nourished - EENT Eyes: Present: PERRL, EOM intact ENT: hearing intact, clear oral mucosa, dentition normal - Neck Neck: Present: supple, normal ROM - Respiratory Respiratory effort: normal Respiratory: bilateral: CTA - Cardiovascular Rhythm: regular Heart Sounds: Present: S1 & S2. Absent: gallop, rub - Extremities Extremities: no ischemia, No edema, Full ROM - Abdominal General gastrointestinal: soft, non-tender, non-distended, normal bowel sounds - Integumentary Integumentary: Present: clear, warm, dry - Neurologic Neurologic: CNII-XII intact, moves all extremities Results - Labs CBC & Chem 7: 05/16/17 06:03 05/16/17 06:03 Labs: Laboratory Last Values WBC 3.3 K/mm3 (4.5-11.0) L 05/16/17 06:03 RBC 3.74 M/mm3 (3.65-5.03) 05/16/17 06:03 Hgb 11.1 gm/dl (10.1-14.3) 05/16/17 06:03 Hct 33.8 % (30.3-42.9) 05/16/17 06:03 MCV 90 fl (79-97) 05/16/17 06:03 MCH 30 pg (28-32) 05/16/17 06:03 MCHC 33 % (30-34) 05/16/17 06:03 RDW 18.8 % (13.2-15.2) H 05/16/17 06:03 Plt Count 282 K/mm3 (140-440) 05/16/17 06:03 Lymph % (Auto) 26.8 % (13.4-35.0) 05/16/17 06:03 Amelia % (Auto) 8.0 % (0.0-7.3) H 05/16/17 06:03 Eos % (Auto) 0.2 % (0.0-4.3) 05/16/17 06:03 Baso % (Auto) 0.3 % (0.0-1.8) 05/16/17 06:03 Lymph # 0.9 K/mm3 (1.2-5.4) L 05/16/17 06:03 Amelia # 0.3 K/mm3 (0.0-0.8) 05/16/17 06:03 Eos # 0.0 K/mm3 (0.0-0.4) 05/16/17 06:03 Baso # 0.0 K/mm3 (0.0-0.1) 05/16/17 06:03 Seg Neutrophils % 64.7 % (40.0-70.0) 05/16/17 06:03 Seg Neutrophils # 2.1 K/mm3 (1.8-7.7) 05/16/17 06:03 PT 12.7 Sec. (12.2-14.9) 05/14/17 14:13 INR 0.91 (0.87-1.13) 05/14/17 14:13 APTT 24.7 Sec. (24.2-36.6) 05/14/17 14:13 Sodium 136 mmol/L (137-145) L 05/16/17 06:03 Potassium 4.5 mmol/L (3.6-5.0) 05/16/17 06:03 Chloride 97.7 mmol/L (98-107) L 05/16/17 06:03 Carbon Dioxide 23 mmol/L (22-30) 05/16/17 06:03 Anion Gap 20 mmol/L 05/16/17 06:03 BUN 18 mg/dL (7-17) H 05/16/17 06:03 Creatinine 0.6 mg/dL (0.7-1.2) L 05/16/17 06:03 Estimated GFR > 60 ml/min 05/16/17 06:03 BUN/Creatinine Ratio 30 % 05/16/17 06:03 Glucose 147 mg/dL (65-100) H 05/16/17 06:03 Calcium 9.2 mg/dL (8.4-10.2) 05/16/17 06:03 Troponin T < 0.010 ng/mL (0.00-0.029) 05/14/17 14:13
[2017-05-16] MEDS: LYRICA PO SCH ×2 (11:41→21:54)
[2017-05-16] MEDS: VITAMIN D3 PO SCH (11:41)
[2017-05-16] MEDS: VITAMIN B-12 PO SCH (11:43)
[2017-05-16] MEDS: PEPCID PO SCH (11:43)
[2017-05-16] MEDS ORDERED: NACL 0.9% 500 ML 500 ML IV ONE (18:00)
[2017-05-16] MEDS: COLACE PO SCH (21:54)
[2017-05-17] MEDS: DECADRON IV SCH ×5 (00:16→23:34)
[2017-05-17 05:41] LABS: Basophils % (Auto) 0.1 % (0.0-1.8); Hematocrit 33.7 % (30.3-42.9); Hemoglobin 11.3 gm/dl (10.1-14.3); Lymphocytes # (Auto) 1.2 K/mm3 (1.2-5.4); Lymphocytes % (Auto) 22.3 % (13.4-35.0); Mean Corpuscular HGB Conc 34 % (30-34); Mean Corpuscular Hemoglobin 30 pg (28-32); Mean Corpuscular Volume 89 fl (79-97); Monocytes # (Auto) 0.6 K/mm3 (0.0-0.8); Monocytes % (Auto) 10.4 % (0.0-7.3); Platelet Count 301 K/mm3 (140-440); Red Blood Count 3.77 M/mm3 (3.65-5.03)
[2017-05-17 06:05] LABS: Alanine Aminotransferase 13 units/L (7-56); Albumin 3.8 g/dL (3.9-5); BUN/Creatinine Ratio 34; Blood Urea Nitrogen 17 mg/dL (7-17); Calcium 9.2 mg/dL (8.4-10.2); Hemolysis Index 43
--- NOTE | 2017-05-17 09:37 | Hem/Onc Progress Note ---
Assessment and Plan Case discussed with radiation oncology. Dr. Banks will assess to see if she would be a candidate for gamma knife or stereotactic radiation. Continue steroids. Discussed with patient Subjective Date of service: 05/17/17 Interval history: Patient known to me. History of metastatic breast cancer. Patient was getting lymphedema therapy and fell in the clinic and was brought to the hospital. She was found to have brain metastases in the cerebellar area. There was one lesion which was 1.8 x 1.6 x 1.2 cm and possibly another lesion. There was edema and mass effect. Patient is currently on steroids and feels better. Discussed with Dr. Banks today. He will be evaluating her Objective - Constitutional Vitals: Last Vital Signs Temp 98.3 F 05/17/17 07:26 Pulse 84 05/17/17 07:26 Resp 16 05/17/17 07:26 BP 112/82 05/17/17 07:26 Pulse Ox 98 05/17/17 07:26 Pain Intensity (0-10): denies any pain General appearance: no acute distress Performance status: 2- selfcare, ambulatory - Neck Neck: supple - Respiratory Respiratory effort: Positive: normal Respiratory: bilateral: CTA - Cardiovascular Rhythm: regular Extremities: abnormal (left arm lymphedema. wrapped) - Gastrointestinal General gastrointestinal: Present: soft - Labs Lab Results: Laboratory Results - last 24 hr 05/17/17 05/17/17 05:06 05:06 WBC 5.6 RBC 3.77 Hgb 11.3 Hct 33.7 MCV 89 MCH 30 MCHC 34 RDW 19.0 H Plt Count 301 Lymph % (Auto) 22.3 Brule % (Auto) 10.4 H Eos % (Auto) 0.0 Baso % (Auto) 0.1 Lymph # 1.2 Brule # 0.6 Eos # 0.0 Baso # 0.0 Seg Neutrophils % 67.2 Seg Neutrophils # 3.7 Sodium 137 Potassium 4.3 Chloride 98.4 Carbon Dioxide 24 Anion Gap 19 BUN 17 Creatinine 0.5 L Estimated GFR > 60 BUN/Creatinine Ratio 34 Glucose 138 H Calcium 9.2 Total Bilirubin 0.40 AST 18 ALT 13 Alkaline Phosphatase 45 Total Protein 6.7 Albumin 3.8 L Albumin/Globulin Ratio 1.3
--- NOTE | 2017-05-17 09:38 | Hem/Onc Progress Note ---
Assessment and Plan cont steroids and cont to monitor stool softeners Subjective Date of service: 05/16/17 Interval history: feels better Objective - Constitutional Vitals: Last Vital Signs Temp 98.3 F 05/17/17 07:26 Pulse 84 05/17/17 07:26 Resp 16 05/17/17 07:26 BP 112/82 05/17/17 07:26 Pulse Ox 98 05/17/17 07:26 Pain Intensity (0-10): denies any pain General appearance: mild distress - Neck Neck: supple - Respiratory Respiratory: bilateral: CTA - Cardiovascular Rhythm: regular - Labs Lab Results: Laboratory Results - last 24 hr 05/17/17 05/17/17 05:06 05:06 WBC 5.6 RBC 3.77 Hgb 11.3 Hct 33.7 MCV 89 MCH 30 MCHC 34 RDW 19.0 H Plt Count 301 Lymph % (Auto) 22.3 Whiteside % (Auto) 10.4 H Eos % (Auto) 0.0 Baso % (Auto) 0.1 Lymph # 1.2 Whiteside # 0.6 Eos # 0.0 Baso # 0.0 Seg Neutrophils % 67.2 Seg Neutrophils # 3.7 Sodium 137 Potassium 4.3 Chloride 98.4 Carbon Dioxide 24 Anion Gap 19 BUN 17 Creatinine 0.5 L Estimated GFR > 60 BUN/Creatinine Ratio 34 Glucose 138 H Calcium 9.2 Total Bilirubin 0.40 AST 18 ALT 13 Alkaline Phosphatase 45 Total Protein 6.7 Albumin 3.8 L Albumin/Globulin Ratio 1.3
[2017-05-17] MEDS: COLACE PO SCH ×2 (10:20→21:22)
[2017-05-17] MEDS: VITAMIN D3 PO SCH (10:21)
[2017-05-17] MEDS: PEPCID PO SCH (10:21)
[2017-05-17] MEDS: LYRICA PO SCH ×2 (10:21→21:23)
[2017-05-17] MEDS: VITAMIN B-12 PO SCH (10:22)
--- NOTE | 2017-05-17 10:25 | Progress Note ---
Assessment and Plan Assessment and plan: Right cerebellar lesion with significant edema and mass effect. Etiology secondary to metastatic breast CA. Cont. Decadron every 6 hours. Neurology consultation in am. Patient may need to be transferred to facility with neurosurgery coverage. We will discuss with oncology plan of care. ? radiation onc eval versus neurosurgery evaluation. I discussed the case with Dr. Garcia Metastatic Left breast cancer. Patient is stage III left breast cancer status post bilateral total mastectomy and left axillary lymph node dissection in April 2010. Also, status post chemotherapy and left axillary mass excision December 2015. Oncology following. History Interval history: Patient reports that her dizziness has resolved. Hospitalist Physical - Constitutional Vitals: Temp Pulse Resp BP Pulse Ox 98.3 F 84 16 112/82 98 05/17/17 07:26 05/17/17 07:26 05/17/17 07:26 05/17/17 07:26 05/17/17 07:26 General appearance: Present: no acute distress, well-nourished - EENT Eyes: Present: PERRL, EOM intact ENT: hearing intact, clear oral mucosa, dentition normal - Neck Neck: Present: supple, normal ROM - Respiratory Respiratory effort: normal Respiratory: bilateral: CTA - Cardiovascular Rhythm: regular Heart Sounds: Present: S1 & S2. Absent: gallop, rub - Extremities Extremities: no ischemia, No edema, Full ROM - Abdominal General gastrointestinal: soft, non-tender, non-distended, normal bowel sounds - Integumentary Integumentary: Present: clear, warm, dry - Neurologic Neurologic: CNII-XII intact, moves all extremities Results - Labs CBC & Chem 7: 05/17/17 05:06 05/17/17 05:06 Labs: Laboratory Last Values WBC 5.6 K/mm3 (4.5-11.0) 05/17/17 05:06 RBC 3.77 M/mm3 (3.65-5.03) 05/17/17 05:06 Hgb 11.3 gm/dl (10.1-14.3) 05/17/17 05:06 Hct 33.7 % (30.3-42.9) 05/17/17 05:06 MCV 89 fl (79-97) 05/17/17 05:06 MCH 30 pg (28-32) 05/17/17 05:06 MCHC 34 % (30-34) 05/17/17 05:06 RDW 19.0 % (13.2-15.2) H 05/17/17 05:06 Plt Count 301 K/mm3 (140-440) 05/17/17 05:06 Lymph % (Auto) 22.3 % (13.4-35.0) 05/17/17 05:06 [place] % (Auto) 10.4 % (0.0-7.3) H 05/17/17 05:06 Eos % (Auto) 0.0 % (0.0-4.3) 05/17/17 05:06 Baso % (Auto) 0.1 % (0.0-1.8) 05/17/17 05:06 Lymph # 1.2 K/mm3 (1.2-5.4) 05/17/17 05:06 [place] # 0.6 K/mm3 (0.0-0.8) 05/17/17 05:06 Eos # 0.0 K/mm3 (0.0-0.4) 05/17/17 05:06 Baso # 0.0 K/mm3 (0.0-0.1) 05/17/17 05:06 Seg Neutrophils % 67.2 % (40.0-70.0) 05/17/17 05:06 Seg Neutrophils # 3.7 K/mm3 (1.8-7.7) 05/17/17 05:06 PT 12.7 Sec. (12.2-14.9) 05/14/17 14:13 INR 0.91 (0.87-1.13) 05/14/17 14:13 APTT 24.7 Sec. (24.2-36.6) 05/14/17 14:13 Sodium 137 mmol/L (137-145) 05/17/17 05:06 Potassium 4.3 mmol/L (3.6-5.0) 05/17/17 05:06 Chloride 98.4 mmol/L (98-107) 05/17/17 05:06 Carbon Dioxide 24 mmol/L (22-30) 05/17/17 05:06 Anion Gap 19 mmol/L 05/17/17 05:06 BUN 17 mg/dL (7-17) 05/17/17 05:06 Creatinine 0.5 mg/dL (0.7-1.2) L 05/17/17 05:06 Estimated GFR > 60 ml/min 05/17/17 05:06 BUN/Creatinine Ratio 34 % 05/17/17 05:06 Glucose 138 mg/dL (65-100) H 05/17/17 05:06 Calcium 9.2 mg/dL (8.4-10.2) 05/17/17 05:06 Total Bilirubin 0.40 mg/dL (0.1-1.2) 05/17/17 05:06 AST 18 units/L (5-40) 05/17/17 05:06 ALT 13 units/L (7-56) 05/17/17 05:06 Alkaline Phosphatase 45 units/L (35-129) 05/17/17 05:06 Troponin T < 0.010 ng/mL (0.00-0.029) 05/14/17 14:13 Total Protein 6.7 g/dL (6.3-8.2) 05/17/17 05:06 Albumin 3.8 g/dL (3.9-5) L 05/17/17 05:06 Albumin/Globulin Ratio 1.3 % 05/17/17 05:06
[2017-05-17] MEDS: NORCO 5/325 PO PRN ×2 (12:05→21:47)
--- NOTE | 2017-05-17 23:30 | Consultation ---
REFERRING DOCTOR: Dr. Ryan Garcia. CHIEF COMPLAINT: " PROFILE: This is a 57-year-old woman with a history of metastatic breast cancer, now with a brain metastasis, referred for radiation. CONCLUSION: 1. 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 2. History of metastatic breast cancer with mediastinum and lung metastasis. 3. History of pathologic stage III, triple negative and infiltrating ductal carcinoma of the left breast diagnosed in April 2010. 4. History of dose-dense ACT chemotherapy, neoadjuvant with good partial response. 5. History of radical mastectomy and left sentinel lymph node sampling and right simple mastectomy followed by tissue transfer reconstruction in 2010. 6. Development of metastatic disease treated with carboplatin and Gemzar chemotherapy. 7. Recent history of right posterior headache and gait disturbance secondary to her right cerebellar metastasis. RECOMMENDATION: Because there is significant peritumor edema and mass effect on the fourth ventricle and dorsal right vicki, we agree with the recommendation of a neurosurgical evaluation. She will be transferred to most [facility] for a neurosurgical evaluation. Following surgery we will consider whole brain radiation or stereotactic radiation surgery to the operative bed. ASSESSMENT: This is a very pleasant 57-year-old -[place] woman who back in 2010, was diagnosed as having locally advanced triple negative left breast cancer. She received neoadjuvant dose-dense ACT chemotherapy with a partial response followed by bilateral mastectomy, left sentinel lymph node sampling and bilateral adjacent tissue transfer for reconstruction. She developed metastatic disease with lung nodules and mediastinal adenopathy. Then received carboplatin and Taxotere therapy ending in November 2015 followed by carboplatin and Gemzar chemotherapy and then finally [place] treatment. Most recently, she has been on Lxempra through 04/2017. She presented to [facility] with right posterior headache and balance disturbance. An MRI of the brain with and without contrast revealed an enhancing 2.1 cm x 1.8 cm x 1.6 cm mass in the right cerebellum with significant peritumor edema causing mass effect on the fourth ventricle and dorsal right vicki. The right superior and middle cerebellar peduncles are distorted. In addition, there was a questionable midline posterior ____ subtle enhancing lesion, possibly the vermis that is suspicious. She has been placed on steroids and has had resolution of her headache. She is now referred for consultation for possible radiation treatment. Clinically, the patient states she is doing well with no visual changes, headache, balance disturbance, weakness. SOCIAL HISTORY: Nonsmoker. FAMILY HISTORY: Noncontributory. MEDICATIONS: Xanax, Lyrica, metformin, Decadron. ALLERGIES: None known. REVIEW OF SYSTEMS: CONSTITUTIONAL: Weak, tired. HEENT: Denies any headache, lightheadedness, neck stiffness. BREASTS: As noted. CARDIOVASCULAR: Denies any chest pain, syncope, dyspnea. RESPIRATORY: Denies any shortness of breath, cough or sputum production. GASTROINTESTINAL: Denies any nausea, vomiting, loss of appetite, bleeding per rectum. GENITOURINARY: Denies any dysuria or hematuria. PHYSICAL EXAMINATION: GENERAL: She is anxious appearing woman lying comfortably in hospital bed. VITAL SIGNS: Blood pressure 117/75, pulse is 99, respiration 18, afebrile, pulse ox is 96, ECOG equals 1. Pain equals 0-10. HEENT: Normocephalic, atraumatic. She has mild swelling of her face. Her extraocular muscles intact. LUNGS: Clear to auscultation. CARDIOVASCULAR: Faint heart tones, regular rate and rhythm. BREASTS: Not performed. EXTREMITIES: No clubbing, cyanosis or edema. NEUROLOGIC: She is alert and oriented x 3. She answers questions appropriately. Cranial nerves 2-12 are grossly intact. Her motor, sensory, and cerebellar exam are grossly intact. DISCUSSION: This unfortunate 57-year-old -[place] woman who has now developed a probable solitary metastasis to the right cerebellum with significant peritumor edema causing mass effect on the fourth ventricle and dorsal right vicki. We agree with the recommendation of a neurosurgical evaluation, which will require her to be transferred to a different institution. We talked about the role of radiation including possible stereotactic radiation, surgery, or gamma knife following surgical resection. Also, whole brain radiation therapy was discussed. We will follow up on her potential surgical evaluation and we will keep you informed. JOB# [id number] BESS/JONNY CEE
[2017-05-18] MEDS: DECADRON IV SCH ×3 (06:19→20:05)
[2017-05-18 06:27] LABS: BUN/Creatinine Ratio 32; Blood Urea Nitrogen 19 mg/dL (7-17); Calcium 9.3 mg/dL (8.4-10.2); Hemolysis Index 4
[2017-05-18 07:28] LABS: Basophils % (Auto) 0.2 % (0.0-1.8); Hematocrit 35.8 % (30.3-42.9); Hemoglobin 11.5 gm/dl (10.1-14.3); Lymphocytes # (Auto) 1.6 K/mm3 (1.2-5.4); Lymphocytes % (Auto) 22.8 % (13.4-35.0); Mean Corpuscular HGB Conc 32 % (30-34); Mean Corpuscular Hemoglobin 30 pg (28-32); Mean Corpuscular Volume 92 fl (79-97); Monocytes # (Auto) 0.9 K/mm3 (0.0-0.8); Platelet Count 345 K/mm3 (140-440); Red Cell Distribution Width 19.1 % (13.2-15.2)
[2017-05-18] MEDS: VITAMIN D3 PO SCH (09:06)
[2017-05-18] MEDS: COLACE PO SCH ×2 (09:07→22:44)
[2017-05-18] MEDS: LYRICA PO SCH ×2 (09:07→22:44)
--- NOTE | 2017-05-18 09:07 | Discharge Summary ---
Providers - Providers Date of Admission: 05/15/17 00:50 Date of discharge: 05/18/17 Attending physician: SARAH GILMORE 05/15/17 06:52 Consult to Physician [CONS] Routine Comment: Consulting Provider: JEREMI BAIRD Physician Instructions: Reason For Exam: CEREBRAL MASS AND EDEMA 05/16/17 10:34 Consult to Physician [CONS] Routine Comment: Consulting Provider: SONIA LYN Physician Instructions: Reason For Exam: met brain lesion 05/17/17 12:54 Physical Therapy Evaluation and Treat [CONS] Routine Comment: Reason For Exam: LYMPHEDEMA Primary care physician: ONLINE EDITOR Hospitalization Reason for admission: dizziness Condition: Stable Hospital course: 57-year-old -[place] female with a history of hypertension, diabetes mellitus type 2 and breast CA presented to ED, with severe dizziness. Symptoms started about 3 hours prior to presentation. She almost fell, due to her symptoms which prompted her visit to ED. the patient underwent CT scan which revealed ill-defined area of edema in the right cerebellar hemisphere concerning for an underlying tumor. MRI revealed 1.8 x 1.6 x 1.2 cm right cerebellar and spherical enhancing lesion with significant surrounding edema and mass effect. Patient also with subtle enhancing second lesion possibly of the vermis which could account for the additional edema and mass effect on the ambient cisterns and cerebellar peduncles. The patient was treated with Decadron IV. Neurology evaluated the patient and felt that the edema appeared to be effacing the fourth ventricle posing a danger for hydrocephalus. Therefore, recommendations were for transfer to tertiary facility with neurosurgery follow-up and potential resection. Arrangements were made for transfer. Dedicated discharge time 32 minutes. Disposition: [id number] Time spent for discharge: 32 - Discharge Diagnoses (1) Breast CA Status: Acute (2) Cerebellar mass Status: Acute (3) Dizziness Status: Acute Core Measure Documentation - Palliative Care Palliative Care/ Comfort Measures: Not Applicable - Core Measures Any of the following diagnoses?: none Exam - Constitutional Vitals: Temp Pulse Resp BP Pulse Ox 98.1 F 80 18 101/66 96 05/18/17 07:59 05/18/17 07:59 05/18/17 07:59 05/18/17 07:59 05/18/17 07:59 General appearance: Present: no acute distress, well-nourished - EENT Eyes: Present: PERRL ENT: hearing intact, clear oral mucosa - Neck Neck: Present: supple, normal ROM - Respiratory Respiratory effort: normal Respiratory: bilateral: CTA - Cardiovascular Heart Sounds: Present: S1 & S2. Absent: rub, click - Extremities Extremities: pulses symmetrical, No edema Peripheral Pulses: within normal limits - Abdominal General gastrointestinal: Present: soft, non-tender, non-distended, normal bowel sounds Female genitourinary: Present: normal - Integumentary Integumentary: Present: clear, warm, dry - Musculoskeletal Musculoskeletal: gait normal, strength equal bilaterally - Psychiatric Psychiatric: appropriate mood/affect, intact judgment & insight - Neurologic Neurologic: CNII-XII intact, moves all extremities Plan Activity: no restrictions Weight Bearing Status: Weight Bear as Tolerated Diet: diabetic Additional Instructions: Manny f/u with Neurosurgery Follow up with: PRIMARY CARE, [Primary Care Provider] - 3-5 Days
[2017-05-18] MEDS: PEPCID PO SCH (09:52)
--- NOTE | 2017-05-18 09:57 | Hem/Onc Progress Note ---
Assessment and Plan Awaiting transfer to [facility] for neurosurgical evaluation. Continue steroids. Subjective Date of service: 05/18/17 Interval history: feels better. Discussed case with Dr. Banks. Neurology and Dr. Banks are recommending neurosurgery evaluation and possible transfer is pending Objective - Constitutional Vitals: Last Vital Signs Temp 98.1 F 05/18/17 07:59 Pulse 80 05/18/17 07:59 Resp 18 05/18/17 07:59 BP 101/66 05/18/17 07:59 Pulse Ox 96 05/18/17 07:59 Pain Intensity (0-10): denies any pain General appearance: no acute distress - Respiratory Respiratory effort: Positive: normal Respiratory: bilateral: diminished - Cardiovascular Rhythm: regular Extremities: No edema (left arm lymphedema) - Gastrointestinal General gastrointestinal: Present: soft - Labs Lab Results: Laboratory Results - last 24 hr 05/18/17 05/18/17 05:42 05:42 WBC 7.2 RBC 3.90 Hgb 11.5 Hct 35.8 MCV 92 MCH 30 MCHC 32 RDW 19.1 H Plt Count 345 Lymph % (Auto) 22.8 [place] % (Auto) 12.0 H Eos % (Auto) 0.0 Baso % (Auto) 0.2 Lymph # 1.6 [place] # 0.9 H Eos # 0.0 Baso # 0.0 Seg Neutrophils % 65.0 Seg Neutrophils # 4.7 Sodium 139 Potassium 4.2 Chloride 98.6 Carbon Dioxide 26 Anion Gap 19 BUN 19 H Creatinine 0.6 L Estimated GFR > 60 BUN/Creatinine Ratio 32 Glucose 135 H Calcium 9.3
[2017-05-18] MEDS: VITAMIN B-12 PO SCH (19:55)
[2017-05-19] MEDS: DECADRON IV SCH ×2 (01:30→06:44)
[2017-05-19 06:27] LABS: Basophils % (Auto) 0.1 % (0.0-1.8); Hematocrit 33.3 % (30.3-42.9); Hemoglobin 11.1 gm/dl (10.1-14.3); Lymphocytes # (Auto) 1.5 K/mm3 (1.2-5.4); Lymphocytes % (Auto) 23.2 % (13.4-35.0); Mean Corpuscular HGB Conc 34 % (30-34); Mean Corpuscular Hemoglobin 30 pg (28-32); Mean Corpuscular Volume 89 fl (79-97); Monocytes # (Auto) 0.8 K/mm3 (0.0-0.8); Platelet Count 311 K/mm3 (140-440); Red Blood Count 3.73 M/mm3 (3.65-5.03); Red Cell Distribution Width 19.5 % (13.2-15.2)
[2017-05-19 06:47] LABS: BUN/Creatinine Ratio 30; Blood Urea Nitrogen 18 mg/dL (7-17); Calcium 9.2 mg/dL (8.4-10.2); Hemolysis Index 4
[2017-05-19 08:39] VITALS: BP 111/72
--- NOTE | 2017-05-19 09:22 | Progress Note ---
Assessment and Plan Right cerebellar lesion with significant edema and mass effect. Etiology secondary to metastatic breast CA. Cont. Decadron every 6 hours. Neurology consultation in am. Patient may need to be transferred to facility with neurosurgery coverage. We will discuss with oncology plan of care. ? radiation onc eval versus neurosurgery evaluation. I discussed the case with Dr. Garcia Metastatic Left breast cancer. Patient is stage III left breast cancer status post bilateral total mastectomy and left axillary lymph node dissection in April 2010. Also, status post chemotherapy and left axillary mass excision December 2015. Oncology following. - Patient Problems (1) Breast CA Current Visit: Yes Status: Acute (2) Cerebellar mass Current Visit: Yes Status: Acute (3) Dizziness Current Visit: Yes Status: Acute Subjective Date of service: 05/18/17 Interval history: Patient reports that her dizziness has resolved. Objective - Constitutional Vitals: Vital Signs - 12hr 05/18/17 05/19/17 23:20 07:59 Temperature 97.9 F 98.7 F Pulse Rate 95 H 92 H Respiratory 18 20 Rate Blood Pressure 96/55 111/72 O2 Sat by Pulse 97 98 Oximetry General appearance: Present: no acute distress, well-nourished - EENT Eyes: PERRL, EOM intact ENT: hearing intact, clear oral mucosa Ears: bilateral: normal - Neck Neck: supple, normal ROM - Respiratory Respiratory effort: normal Respiratory: bilateral: CTA - Breasts Breasts: normal - Cardiovascular Rhythm: regular Heart Sounds: Present: S1 & S2. Absent: gallop, rub Extremities: pulses intact, No edema, normal color, Full ROM - Gastrointestinal General gastrointestinal: Present: soft, non-tender, non-distended, normal bowel sounds - Genitourinary Female genitourinary: normal - Integumentary Integumentary: clear, warm, dry - Musculoskeletal Musculoskeletal: 1, strength equal bilaterally - Neurologic Neurologic: moves all extremities - Psychiatric Psychiatric: memory intact, appropriate mood/affect, intact judgment & insight - Labs CBC & Chem 7: 05/19/17 05:45 05/19/17 05:45 Labs: Abnormal lab results 05/19/17 05/19/17 Range/Units 05:45 05:45 RDW 19.5 H (13.2-15.2) % [place] % (Auto) 12.0 H (0.0-7.3) % Chloride 97.7 L (98-107) mmol/L BUN 18 H (7-17) mg/dL Creatinine 0.6 L (0.7-1.2) mg/dL Glucose 139 H (65-100) mg/dL
[2017-05-19] MEDS: PEPCID PO SCH (10:00)
[2017-05-19] MEDS: VITAMIN B-12 PO SCH (10:00)
[2017-05-19] MEDS: VITAMIN D3 PO SCH (10:00)
[2017-05-19] MEDS: LYRICA PO SCH (10:00)
[2017-05-19] MEDS: COLACE PO SCH (10:00)
--- NOTE | 2017-05-19 10:11 | Hem/Onc Progress Note ---
Assessment and Plan Case discussed with Dr. Darling at [facility]. She reviewed the scan with me over the phone and has accepted transfer to [facility] Continue steroids. Case discussed with Dr. Peter. Case discussed with the patient. We will see her after she is discharged from [place] Subjective Date of service: 05/19/17 Interval history: feels better. Discussed case with Dr. Banks. Neurology and Dr. Banks are recommending neurosurgery evaluation. Denies any headaches Objective - Constitutional Vitals: Last Vital Signs Temp 98.7 F 05/19/17 07:59 Pulse 92 H 05/19/17 07:59 Resp 20 05/19/17 07:59 BP 111/72 05/19/17 07:59 Pulse Ox 98 05/19/17 07:59 Pain Intensity (0-10): denies any pain Performance status: 2- selfcare, ambulatory - Neck Neck: supple - Respiratory Respiratory effort: Positive: normal Respiratory: bilateral: diminished - Cardiovascular Rhythm: regular Extremities: abnormal (left arm lymphedema) - Gastrointestinal General gastrointestinal: Present: soft - Labs Lab Results: Laboratory Results - last 24 hr 05/19/17 05/19/17 05:45 05:45 WBC 6.5 RBC 3.73 Hgb 11.1 Hct 33.3 MCV 89 MCH 30 MCHC 34 RDW 19.5 H Plt Count 311 Lymph % (Auto) 23.2 [place] % (Auto) 12.0 H Eos % (Auto) 0.0 Baso % (Auto) 0.1 Lymph # 1.5 [place] # 0.8 Eos # 0.0 Baso # 0.0 Seg Neutrophils % 64.7 Seg Neutrophils # 4.2 Sodium 137 Potassium 4.1 Chloride 97.7 L Carbon Dioxide 25 Anion Gap 18 BUN 18 H Creatinine 0.6 L Estimated GFR > 60 BUN/Creatinine Ratio 30 Glucose 139 H Calcium 9.2
== END 2017-05-19 11:20 | disposition short-term general hospital (02) | DRG 54 ==
LOC: ED 11:28 → 3A 05-15 00:50
PROVIDERS: ADMIT Internal Medicine; ATTEND Hospitalist
DX: C79.31 Secondary malignant neoplasm of brain (principal); G93.6 Cerebral edema; G93.89 Other specified disorders of brain; I10 Essential (primary) hypertension; E11.9 Type 2 diabetes mellitus without complications; Z85.3 Personal history of malignant neoplasm of breast; C78.1 Secondary malignant neoplasm of mediastinum; C78.00 Secondary malignant neoplasm of unspecified lung
CPT/HCPCS: 36415; 70450; 70553; 80048; 80053; 84484; 85025; 85610; 85730; 93005; 93010; 96374; 96375; A9577; J1100; J2405; J7030; J7040

== ENCOUNTER 2017-08-26 06:58 | Outpatient (CLI) | payer MEDICAID ==
--- NOTE | 2017-08-26 12:05 | PET Report ---
PET/CT:08/26/17 06:58:00 CLINICAL: Breast cancer restaging. History of a left axillary recurrence. RADIOPHARMACEUTICAL: 12.24mCi F18-FDG. COMPARISON: 05/06/17 PET/CT TECHNIQUE- Following intravenous injection of F-18 FDG and an approximately 60 minute uptake period, CT and PET images from the mid skull to the upper thighs were acquired with the patient in the fasted state. No contrast was administered. The CT protocol used for this PET CT study is designed for attenuation correction and anatomic localization of PET abnormalities. This safety officer CT is not desired to produce and cannot replace, fohey-hd-ehx-art diagnostic CT scans with specific imaging protocols for different body parts and indications. Plasma glucose at the time of this test: 90g/dl. The standardized uptake values (SUV) are normalized to patient body weight and indicate the highest activity concentration (SUV max) in a given disease site. FINDINGS: Brain--Physiologic FDG uptake in the visualized regions of the brain. Neck--Physiologic FDG uptake . Chest--Physiologic FDG uptake in mediastinal blood pool and myocardium. Lungs--The previously identified FDG avid left upper lobe lung nodules are slightly smaller with less FDG uptake. The pleural-based nodule measures 9 x 8 mm compared to 12 x 10 mm with SUV 2.6 compared to 3.1. A more inferior nodule measures 10 x 5 mm compared to 12 x 8 mm with SUV 1.3 compared to 2.0. No new lung nodule or mass. Pleura/pericardium--No abnormal uptake. Thoracic nodes--The FDG avid left axillary mass measures 3.8 x 3.7 cm with SUV 8.9 compared to 5.2 x 4.7 cm and SUV 11.2. A tiny left supraclavicular FDG avid lymph node measures less than 1 cm with SUV 5.7 compared to 11.2. The margins and size of this mass were poorly defined on the last exam. Hepatobiliary--No abnormal uptake. Liver background SUV mean, as a reference for comparing FDG studies, is 3.3 compared to 3.7 on the last exam. No liver mass. Spleen--No abnormal uptake. Pancreas--No abnormal uptake. Adrenal Glands--No abnormal uptake. Kidneys/Ureters/Bladder--No abnormal uptake. Abdominopelvic Nodes--No abnormal uptake. Bowel/Peritoneum/Mesentery--No abnormal uptake. Pelvic organs--No abnormal uptake. Bones/Soft Tissues--No abnormal uptake. No suspicious bone lesions. IMPRESSION- A positive response to treatment with decreased size and FDG uptake in the left upper lobe lung nodules, left supraclavicular lymph node and left axillary mass. No new disease.
== END 2017-08-26 06:59 | disposition home or self-care (01) ==
LOC: PET 06:58
PROVIDERS: ATTEND Internal Medicine Hematology & Oncology
DX: C50.112 Malignant neoplasm of central portion of left female breast (principal); C79.31 Secondary malignant neoplasm of brain; R91.1 Solitary pulmonary nodule; I10 Essential (primary) hypertension; E11.9 Type 2 diabetes mellitus without complications
CPT/HCPCS: 78815; 82962; A9552

== ENCOUNTER 2017-12-09 08:03 | Outpatient (CLI) | payer MEDICAID, MEDICARE ==
--- NOTE | 2017-12-09 15:17 | PET Report ---
PET/CT:12/09/17 08:03:00 CLINICAL: Breast cancer restaging. History of a left axillary nikolay recurrence. RADIOPHARMACEUTICAL: 14.473mCi F18-FDG. COMPARISON: 08/26/17 PET/CT TECHNIQUE- Following intravenous injection of F-18 FDG and an approximately 60 minute uptake period, CT and PET images from the mid skull to the upper thighs were acquired with the patient in the fasted state. No contrast was administered. The CT protocol used for this PET CT study is designed for attenuation correction and anatomic localization of PET abnormalities. This steel loader CT is not desired to produce and cannot replace, tyobv-so-owv-art diagnostic CT scans with specific imaging protocols for different body parts and indications. Plasma glucose at the time of this test: 91g/dl. The standardized uptake values (SUV) are normalized to patient body weight and indicate the highest activity concentration (SUV max) in a given disease site. FINDINGS: Brain--Physiologic FDG uptake in the visualized regions of the brain. Neck--Physiologic FDG uptake the mucosal structures. No mass or lymphadenopathy. Chest--Physiologic FDG uptake in mediastinal blood pool and myocardium. Lungs--No abnormal uptake. However, several new non-FDG avid nodular lung opacities. A posterior right upper lobe opacity contiguous to the pleura measures 1.5 x 1.3 cm. An 8 x 7 mm posterior right upper lobe nodular opacity. Three non-FDG avid right lower lobe opacities with the largest measuring 1.7 x 0.8 cm. A right middle lobe nodular opacity measures 1.3 x 1.1 cm. A left upper lobe nodular opacity contiguous to the pleura measures 1.0 x 0.9 cm. All of these lung opacities have relatively low Hounsfield numbers and the larger right lung opacities have a groundglass pattern. Non-FDG avid left lung nodules are more numerous than on the last exam. Pleura/pericardium--No abnormal uptake. Thoracic nodes--The FDG avid left axillary mass has indistinct margins and extends from the axilla inferiorly along the lateral chest wall. FDG uptake is increased with HCV 16.8 compared to 8.9. Increased FDG uptake in the left pulmonary hilum with SUV 8.4 compared to 4.2. Hepatobiliary--No abnormal uptake. Liver background SUV mean, as a reference for comparing FDG studies, is 4.7 compared to 3.0 on the last exam. No liver mass. Spleen--No abnormal uptake. Pancreas--No abnormal uptake. Adrenal Glands--No abnormal uptake. Kidneys/Ureters/Bladder--No abnormal uptake. Abdominopelvic Nodes--No abnormal uptake. Bowel/Peritoneum/Mesentery--No abnormal uptake. Pelvic organs--No abnormal uptake. Bones/Soft Tissues--No abnormal uptake and no suspicious bone lesions.. IMPRESSION-Progression of disease with increased FDG uptake in the left axillary recurrence, increased FDG uptake in the left pulmonary hilum and several new bilateral lung nodules which are suspicious for new pulmonary metastases. No evidence of hepatic or skeletal metastasis.
== END 2017-12-09 08:04 | disposition home or self-care (01) ==
LOC: PET 08:03
PROVIDERS: ATTEND Internal Medicine Hematology & Oncology
DX: C79.31 Secondary malignant neoplasm of brain (principal); R91.1 Solitary pulmonary nodule; C50.112 Malignant neoplasm of central portion of left female breast; I10 Essential (primary) hypertension; E11.9 Type 2 diabetes mellitus without complications; Z90.12 Acquired absence of left breast and nipple
CPT/HCPCS: 78815; 82962; A9552

== ENCOUNTER 2018-03-10 10:49 | Outpatient (CLI) | payer MEDICARE ==
--- NOTE | 2018-03-10 14:34 | PET Report ---
PET/CT:03/10/18 10:49:00 CLINICAL: Left breast cancer restaging. RADIOPHARMACEUTICAL: 10.594mCi F18-FDG. COMPARISON: 12/09/17 PET/CT TECHNIQUE- Following intravenous injection of F-18 FDG and an approximately 60 minute uptake period, CT and PET images from the mid skull to the upper thighs were acquired with the patient in the fasted state. No contrast was administered. The CT protocol used for this PET CT study is designed for attenuation correction and anatomic localization of PET abnormalities. This environmental sampling technician CT is not desired to produce and cannot replace, nnppz-yo-igy-art diagnostic CT scans with specific imaging protocols for different body parts and indications. Plasma glucose at the time of this test: 92g/dl. The standardized uptake values (SUV) are normalized to patient body weight and indicate the highest activity concentration (SUV max) in a given disease site. FINDINGS: Brain--Physiologic FDG uptake in the visualized regions of the brain. Neck--Physiologic FDG uptake in mucosal structures. No mass or lymphadenopathy. Chest--Physiologic FDG uptake in mediastinal blood pool and myocardium. Lungs--No abnormal uptake. A right upper lobe nodular lung opacity measures 1.2 x 0.9 cm compared to 1.3 x 1.1 cm on the last exam. The rest of the bilateral lung nodules have resolved. Pleura/pericardium--No abnormal uptake. Thoracic nodes--Resolution of FDG uptake in the left pulmonary hilum. Decreased soft tissue mass and decreased FDG uptake in the left axilla with SUV 12.9 compared to 16.8. Hepatobiliary--No abnormal uptake. Liver background SUV mean, as a reference for comparing FDG studies, is 5.0 compared to 4.9 on the last exam. No liver mass. Spleen--No abnormal uptake. Pancreas--No abnormal uptake. Adrenal Glands--No abnormal uptake. Kidneys/Ureters/Bladder--No abnormal uptake. Abdominopelvic Nodes--No abnormal uptake. Bowel/Peritoneum/Mesentery--2 foci of FDG uptake in the right retroperitoneum anterior to the IVC at the level of the aortic bifurcation. Maximum SUV 7.4 and no measurable soft tissue mass or lymph node. Pelvic organs--No abnormal uptake. Bones/Soft Tissues--No abnormal uptake and no suspicious bone lesions. IMPRESSION- A positive response to therapy with decreased left axillary mass and decreased FDG uptake within the mass. Resolution of all but one of the previously noted lung nodules and resolution of FDG uptake in the left pulmonary hilum. The remaining right upper lobe lung nodule has decreased in size. FDG uptake in the right retroperitoneum is probably benign and related to either normal bowel or ureter.
== END 2018-03-10 10:50 | disposition home or self-care (01) ==
LOC: PET 10:49
PROVIDERS: ATTEND Internal Medicine Hematology & Oncology
DX: R91.1 Solitary pulmonary nodule (principal); C50.112 Malignant neoplasm of central portion of left female breast; I10 Essential (primary) hypertension; E11.9 Type 2 diabetes mellitus without complications
CPT/HCPCS: 78815; 82962; A9552

== ENCOUNTER 2018-06-02 10:14 | Outpatient (CLI) | payer MEDICARE ==
--- NOTE | 2018-06-06 08:46 | PET Report ---
PET/CT:06/02/18 10:14:00 CLINICAL: Breast cancer restaging. RADIOPHARMACEUTICAL: 13.465mCi F18-FDG. COMPARISON: 03/10/18 PET/CT TECHNIQUE- Following intravenous injection of F-18 FDG and an approximately 60 minute uptake period, CT and PET images from the mid skull to the upper thighs were acquired with the patient in the fasted state. No contrast was administered. The CT protocol used for this PET CT study is designed for attenuation correction and anatomic localization of PET abnormalities. This trauma nurse CT is not desired to produce and cannot replace, kidrl-bu-rzu-art diagnostic CT scans with specific imaging protocols for different body parts and indications. Plasma glucose at the time of this test: 90g/dl. The standardized uptake values (SUV) are normalized to patient body weight and indicate the highest activity concentration (SUV max) in a given disease site. FINDINGS: Brain--Physiologic FDG uptake in the visualized regions of the brain. Neck--Physiologic FDG uptake in mucosal structures. No mass or lymphadenopathy. Chest--Physiologic FDG uptake in mediastinal blood pool and myocardium. Lungs--No abnormal uptake. The previously described right upper lobe nodular lung opacity is less dense and more indistinct. There is a subtle wedge shaped passively in the vicinity image 87, series 1. No other lung nodule or lung mass. Pleura/pericardium--No abnormal uptake. Thoracic nodes--The previously described left axillary mass is stable in size with stable focal FDG uptake adjacent to the scapula with SUV 11.8 compared to 12.9. However, increased focal FDG uptake adjacent to the left breast implant with SUV 5.9 compared to 2.8. FDG uptake at the inferior aspect of the axillary mass with HCV 12.6 compared to 6.6 on the last exam. This uptake is in the area of calcifications. Hepatobiliary--No abnormal uptake. Liver background SUV mean, as a reference for comparing FDG studies, is 5.7 compared to 5.7 on the last exam. No liver mass. Spleen--No abnormal uptake. Pancreas--No abnormal uptake. Adrenal Glands--No abnormal uptake. Kidneys/Ureters/Bladder--No abnormal uptake. Abdominopelvic Nodes--No abnormal uptake. Bowel/Peritoneum/Mesentery--No abnormal uptake. Pelvic organs--No abnormal uptake. Bones/Soft Tissues--No abnormal uptake and no suspicious bone lesion. IMPRESSION- 1. A stable size left axillary and left chest wall mass but 2 focal areas of increased FDG uptake with higher SUVs compared to the last exam. 2. No evidence of pulmonary metastasis. Previously described pulmonary nodules have resolved. Mild residual scar in the right upper lobe. 3. No evidence of hepatic or skeletal metastasis.
== END 2018-06-02 10:15 | disposition home or self-care (01) ==
LOC: PET 10:14
PROVIDERS: ATTEND Internal Medicine Hematology & Oncology
DX: C50.112 Malignant neoplasm of central portion of left female breast (principal); R22.2 Localized swelling, mass and lump, trunk; I10 Essential (primary) hypertension; E11.9 Type 2 diabetes mellitus without complications
CPT/HCPCS: 78815; A9552

== ENCOUNTER 2018-08-25 09:06 | Outpatient (CLI) | payer MEDICARE ==
--- NOTE | 2018-08-25 15:49 | PET Report ---
PET/CT:08/25/18 09:06:00 CLINICAL: Breast cancer restaging. RADIOPHARMACEUTICAL: 14.919mCi F18-FDG. COMPARISON: 06/02/18 PET/CT TECHNIQUE- Following intravenous injection of F-18 FDG and an approximately 60 minute uptake period, CT and PET images from the mid skull to the upper thighs were acquired with the patient in the fasted state. No contrast was administered. The CT protocol used for this PET CT study is designed for attenuation correction and anatomic localization of PET abnormalities. This spacer type bar and segment CT is not desired to produce and cannot replace, vjlgj-rd-kua-art diagnostic CT scans with specific imaging protocols for different body parts and indications. Plasma glucose at the time of this test: 148g/dl. The standardized uptake values (SUV) are normalized to patient body weight and indicate the highest activity concentration (SUV max) in a given disease site. FINDINGS: Brain--Physiologic FDG uptake in the visualized regions of the brain. Neck--Physiologic FDG uptake in mucosal structures. No mass or lymphadenopathy. Chest--Physiologic FDG uptake in mediastinal blood pool and myocardium. Status post bilateral mastectomy with intact bilateral breast implants. Lungs--No abnormal uptake. No pulmonary nodule or mass. Previously identified right upper lobe lung opacities have resolved. Pleura/pericardium--No abnormal uptake. Thoracic nodes--The previously described left axillary mass with calcifications is stable in size and measures approximately 5.5 x 3.1 cm compared to 6.0 x 2.7 cm. Although stable in size, the volume of FDG uptake has increased but with relatively stable SUV of 12.0 compared is 12.6. Mass extends anterior to the scapula with the pre-scapular SUV 12.1 compared to 11.8. FDG uptake at the posterior aspect of the left breast implant with SUV 8.6 compared to 5.9. No FDG avid mediastinal or hilar lymph nodes. Hepatobiliary--No abnormal uptake. Liver background SUV mean, as a reference for comparing FDG studies, is 4.9 compared to on the last exam. No liver mass. Spleen--No abnormal uptake. Pancreas--No abnormal uptake. Adrenal Glands--No abnormal uptake. Kidneys/Ureters/Bladder--No abnormal uptake. Abdominopelvic Nodes--No abnormal uptake. Bowel/Peritoneum/Mesentery--No abnormal uptake. Pelvic organs--No abnormal uptake. Bones/Soft Tissues--No abnormal uptake and no suspicious bone lesions. IMPRESSION- 1. Resolution of pulmonary opacities. 2. A relatively stable size left axillary and pre-scapular mass with stable SUV but with slightly increased volume of FDG uptake. 3. No evidence of pulmonary, hepatic or skeletal metastasis.
== END 2018-08-25 09:07 | disposition home or self-care (01) ==
LOC: PET 09:06
PROVIDERS: ATTEND Internal Medicine Hematology & Oncology
DX: C50.112 Malignant neoplasm of central portion of left female breast (principal); E11.9 Type 2 diabetes mellitus without complications; I10 Essential (primary) hypertension
CPT/HCPCS: 78815; 82962; A9552

== ENCOUNTER 2018-12-08 09:33 | Outpatient (CLI) | payer MEDICARE ==
--- NOTE | 2018-12-08 12:55 | PET Report ---
PET/CT HISTORY: C50.112. Restaging of left breast cancer TECHNIQUE: The patient's fasting blood glucose was 157. The patient weighed 204 lbs. The patient w as injected with 15.2 mCi of FDG in the right hand at 1012 hours and imaging was started at 1058 hour s. The patient was imaged from the skull base to the thighs. All CT scans at this location are perfo rmed using CT dose reduction for ALARA by means of automated exposure control. Images were reviewed o n a workstation. COMPARISON: 03/10/2018 FINDINGS: IMAGED BRAIN: [Physiologic FDG uptake] NECK: [Physiologic FDG uptake] CHEST WALL: [Bilateral breast prostheses are intact. There are 3 areas of increased radiotracer upta ke in the left axillary region which appear increased in size and intensity since the previous exam. There is an ill-defined area of uptake just anterior to left scapula measuring up to 5.7 x 4.1 cm in axial plane and demonstrates a max SUV of 17.1. There is a small linear area of increased uptake post erior to the left breast prosthesis measuring approximately 1 x 2 cm with max SUV measuring 15.4. Sof t tissue ulceration has developed in the inferior left axilla with soft tissue density measuring up t o 6.0 x 3.5 cm in axial plane and max SUV measuring 17.8. MEDIASTINUM: [Physiologic FDG uptake] LUNGS: [Physiologic FDG uptake] HEPATOBILIARY: [Physiologic FDG uptake]. Liver uptake measures 5.2 as opposed to 5.0 on the previous exam. PANCREAS: [Physiologic FDG uptake SPLEEN: [Physiologic FDG uptake] KIDNEYS/BLADDER: [Physiologic FDG uptake] ADRENAL GLANDS: [Physiologic FDG uptake] GI/MESENTERY: [Physiologic FDG uptake] PELVIC VISCERA: [Physiologic FDG uptake] LYMPH NODES: [Physiologic FDG uptake] OSSEOUS STRUCTURES: [Physiologic FDG uptake] ADDITIONAL FINDINGS: [None] IMPRESSION: Mild progression of disease is suspected since 03/10/2018 exam. There is increased soft tissue densit y and hypermetabolic activity and 3 regions in the left axillary region as described above. Skin ulce ration is demonstrated in the inferior left axilla with surrounding hypermetabolic activity. No evide nce for pulmonary, hepatic or skeletal metastasis. Signer Name: Jesse Reese Jr, MD Signed: 12/08/2018 12:51 PM Workstation Name: [id number]
== END 2018-12-08 09:34 | disposition home or self-care (01) ==
LOC: PET 09:33
PROVIDERS: ATTEND Internal Medicine Hematology & Oncology
DX: C50.112 Malignant neoplasm of central portion of left female breast (principal); R73.09 Other abnormal glucose
CPT/HCPCS: 78815; 82962; A9552

== ENCOUNTER 2018-12-23 08:37 | Outpatient (CLI) | payer MEDICARE | END 2018-12-23 08:38 | disposition home or self-care (01) | LOC: LABHHL 08:37 | PROVIDERS: ATTEND Surgery | DX: L02.213 Cutaneous abscess of chest wall (principal); I10 Essential (primary) hypertension; E11.9 Type 2 diabetes mellitus without complications | CPT/HCPCS: 87075; 87116; 88112 ==

== ENCOUNTER 2018-12-23 14:03 | Outpatient (CLI) | payer MEDICARE ==
[2018-12-23] MEDS ORDERED: XYLOCAINE TOPICAL 4% TP ONE (15:15)
== END 2018-12-23 14:04 | disposition home or self-care (01) ==
LOC: WOUND 14:03
PROVIDERS: ATTEND Surgery
DX: T85.79XA Infection and inflammatory reaction due to other internal prosthetic devices, implants and grafts, initial encounter (principal); C43.59 Malignant melanoma of other part of trunk; L08.89 Other specified local infections of the skin and subcutaneous tissue; Y83.8 Other surgical procedures as the cause of abnormal reaction of the patient, or of later complication, without mention of misadventure at the time of the procedure; Y92.89 Other specified places as the place of occurrence of the external cause
CPT/HCPCS: 99215; G0463

== ENCOUNTER 2018-12-30 14:03 | Outpatient (CLI) | payer MEDICARE ==
[2018-12-30] MEDS ORDERED: LIDOCAINE (4%) 40 MG/ML TOPICAL SOLN 50 ML BOTTLE TP ONE (14:17)
== END 2018-12-30 14:04 | disposition home or self-care (01) ==
LOC: WOUND 14:03
PROVIDERS: ATTEND Surgery
DX: T85.49XD Other mechanical complication of breast prosthesis and implant, subsequent encounter (principal); C50.912 Malignant neoplasm of unspecified site of left female breast; L08.89 Other specified local infections of the skin and subcutaneous tissue; Y83.8 Other surgical procedures as the cause of abnormal reaction of the patient, or of later complication, without mention of misadventure at the time of the procedure
CPT/HCPCS: 99214; G0463

== ENCOUNTER 2019-01-04 12:26 | Observation (INO) | payer MEDICARE ==
--- NOTE | 2019-01-04 13:27 | Anesthesia Consultation ---
Anesthesia Consult and Med Hx Date of service: 01/04/19 - Airway Anesthetic Teeth Evaluation: Good ROM Head & Neck: Adequate Mental/Hyoid Distance: Adequate Mallampati Class: Class II Intubation Access Assessment: Good - Pulmonary Exam CTA: Yes - Cardiac Exam Cardiac Exam: RRR - Pre-Operative Health Status ASA Pre-Surgery Classification: ASA3 Proposed Anesthetic Plan: General (DM, HTN , Breast Ca, Obesity for GA) - Pulmonary Hx Smoking: No Hx Asthma: No Hx Sleep Apnea: No - Cardiovascular System Hx Hypertension: Yes (BECAME HYPOTENSIVE WHEN STARTED ON CHEMO, MED DISCONTINUED) - Central Nervous System Hx Seizures: No Hx Psychiatric Problems: No - Endocrine Hx Non-Insulin Dependent Diabetes: Yes (diet controlled) Hx Thyroid Disease: No - Other Systems Hx Alcohol Use: No Hx Substance Use: No Hx Cancer: Yes Hx Obesity: Yes
--- NOTE | 2019-01-04 13:27 | Anesthesia Day of Surgery ---
Anesthesia Day of Surgery - Day of Surgery Patient Examined: Yes Patient H&P Reviewed: Yes Patient is NPO: Yes
[2019-01-04] MEDS ORDERED: HYDROmorphone 1 MG/1 ML INJ IV PRN (13:28)
[2019-01-04] MEDS ORDERED: ONDANSETRON 4 MG/2 ML INJ IV PRN ×2 (13:28→17:30)
[2019-01-04] MEDS ORDERED: ONDANSETRON 4 MG/2 ML INJ ONE (13:30)
[2019-01-04] MEDS ORDERED: LACTATED RINGERS 1,000 ML IV SCH ×2 (14:00→18:00)
[2019-01-04] MEDS ORDERED: MIDAZOLAM 2 MG/2 ML INJ IV NR (14:00)
[2019-01-04] MEDS ORDERED: ceFAZolin/STERILE WATER 2 GM/20 ML SYRINGE IV NR (15:00)
[2019-01-04] MEDS ORDERED: ceFAZolin 1 GM VIAL ONE (15:09)
[2019-01-04] MEDS ORDERED: GENTAMICIN 40 MG/ML VIAL 2 ML ONE (15:10)
[2019-01-04] MEDS ORDERED: BACITRACIN 50,000 UNIT VIAL ONE (15:10)
[2019-01-04] MEDS ORDERED: SODIUM CHLORIDE P/F VIAL 10 ML 0 ML ONE (15:11)
[2019-01-04] MEDS ORDERED: PROPOFOL 200 MG/20 ML VIAL IV ONE (16:19)
[2019-01-04] MEDS ORDERED: LIDOCAINE MPF (2%) 20 MG/1 ML VIAL 5 ML ONE (16:19)
[2019-01-04] MEDS ORDERED: fentaNYL 100 MCG/2 ML INJ ONE ×2 (16:19→17:08)
[2019-01-04] MEDS ORDERED: SODIUM CHLORIDE 0.9% IRRIG SOLN 2000 ML IR ONE (17:20)
[2019-01-04] MEDS ORDERED: oxyCODONE /ACETAMINOPHEN 5-325MG TAB PO PRN (17:30)
[2019-01-04] MEDS ORDERED: ACETAMINOPHEN 325 MG TAB PO PRN (17:30)
[2019-01-04] MEDS ORDERED: diphenhydrAMINE 25 MG CAP PO PRN (17:30)
[2019-01-04] MEDS ORDERED: METOCLOPRAMIDE 10 MG TAB PO PRN (17:30)
--- NOTE | 2019-01-04 17:58 | Operative Report ---
Operative Report Operative Report: January 04, 2019 Preoperative diagnosis: Stage IV Left breast cancer with ulcerative necrotic axillary tail wound recurrence Postoperative diagnosis: Same Procedure: 1. Left chest wall skin resection 2. Left chest wall debridement 3. Removal of implant 4. Left chest wall wound vac placement Surgeon: Nydia Kelly MD Telemetry Nurse: Alek Palumbo MD Anesthesia: General Findings: Left chest wall recurrence with ulcerative necrotic axillary tail wound, placement of wound vac; chest wall recurrence Complications: None EBL: 50 ml Drains: Wound vac placement Disposition: PACU in good condition Indications for operative procedure: This is a 58 year old lady with Stage IV left breast cancer with left chest wal necrotic ulcerative wound with implant exposure. 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 Romero. Patient received adjuvant radiation therapy as well as adjuvant chemotherapy. Patient is currently undergoing current chemotherapy treatment by Dr. Garcia of [facility]. She was recently seen in clinic with new findings of axillary tail necrotic wound that was being treated by outside hospital wound care. Recommendations were to proceed with wound debridement with temporary wound vac placement followed by plastic surgery to proceed with latissmuss dorsi rotational flap. Patient understood surgery was not for cure both for palliative care. She has been followed recently closely by Dr. Palumbo in wound care. She wished to proceed with the above procedure. Procedure in detail: Patient was then taken to the operating room. Gen. anesthesia was administered. Bilaeteral chest were prepped and draped in the normal sterile operative fashion. Timeout was performed. Left axillary tail of breast mound signficant for ulcerative open necrotic wound with implant exposure. A skin incision was made with Bovie cautery with removal of the bridging of skin that was holding the implant in place. Implant was then removed. Area of bridging skin was resected. Significant exudate was present throughout the left chest wall with minimal muscle present. Exudate significant for carcinoma. Inferior skin flap with the breast mound was then resected to healthy bleeding tissue. Lulu was then placed for hemostasis. Dr. Palumbo then proceeded with debridement of the left chest wall using a curet until healthy tissue was present. The chest wall was then Pulsavac with 3 L of saline. Hemostasis was then obtained. Dr. Velarde was also present for evaluation of the wound cavity for delayed latissimus dorsi flap. Wound VAC was then placed with appropriate suction present. The patient tolerated surgery very well and she was awaken from anesthesia without any complication and transported to PACU in good condition.
[2019-01-04] MEDS ORDERED: HYDROmorphone 1 MG/1 ML INJ ONE (18:15)
[2019-01-04] MEDS: MORPHINE 2 MG/1 ML INJ IV PRN (20:53)
[2019-01-04] MEDS: DOCUSATE SODIUM 100 MG CAP PO SCH (22:44)
[2019-01-04] MEDS: GABAPENTIN 300 MG CAP PO SCH (22:44)
[2019-01-04] MEDS: CAPECITABINE 500 MG TAB PO SCH (22:45)
[2019-01-05] MEDS: MORPHINE 2 MG/1 ML INJ IV PRN (06:11)
[2019-01-05] MEDS: GABAPENTIN 300 MG CAP PO SCH (07:24)
--- NOTE | 2019-01-05 07:47 | Progress Note ---
Assessment and Plan This is a 58 year old lady with Stage IV left breast cancer with left chest wall recurrence, POD#1 left chest wall debridement, removal of implant and wound vac placement. 1. No acute events overnight. 2. Pain in good control. 3. Left chest wound vac with air leak and will have wound care see patient today. 4. D/C planing for later today. Subjective Date of service: 01/05/19 Principal diagnosis: Stage IV left breast cancer with chest wall recurrence Interval history: POD #1 left chest wall debridement of necrotic tissue and wound vac placement Objective - Constitutional Vitals: Vital Signs - 12hr 01/04/19 01/05/19 23:21 04:34 Temperature 98.2 F 99.3 F Pulse Rate 77 110 H Respiratory 20 20 Rate Blood Pressure 102/67 101/66 O2 Sat by Pulse 96 97 Oximetry General appearance: Present: no acute distress - EENT Eyes: PERRL, EOM intact ENT: hearing intact, clear oral mucosa Ears: bilateral: normal - Neck Neck: supple, normal ROM - Respiratory Respiratory effort: normal - Breasts Breasts: other (left wound vac in place with air leak present-will consult wound care today) - Cardiovascular Rhythm: regular Extremities: no ischemia, pulses intact, pulses symmetrical, abnormal (stable left upper extremity lymphedema-chronic) - Gastrointestinal General gastrointestinal: Present: soft, non-tender, non-distended - Genitourinary Female genitourinary: deferred - Integumentary Integumentary: clear, warm, dry - Musculoskeletal Musculoskeletal: strength equal bilaterally - Neurologic Neurologic: CNII-XII intact - Psychiatric Psychiatric: appropriate mood/affect, intact judgment & insight, memory intact, cooperative - Labs Labs: Abnormal lab results 01/04/19 Range/Units 14:33 POC Glucose 149 H (70-105) Medications & Allergies - Medications Allergies/Adverse Reactions: Allergies carboplatin Allergy (Verified 01/02/19 17:27) Shortness of Breath Home Medications: Home Medications Medication Instructions Recorded Confirmed Last Taken Type Capecitabine [Xeloda] 1,000 mg PO BID 01/02/19 01/02/19 01/03/19 14:00 History Duloxetine HCl 40 mg PO DAILY 01/02/19 01/02/19 01/03/19 14:00 History Gabapentin [Neurontin] 300 mg PO Q8HR 01/02/19 01/02/1919 14:00 History HYDROcodone/APAP 5-325 [[place] 1 each PO Q4HR PRN #20 tablet 01/05/19 Unknown Rx 5/325] Sulfamethoxazole/Trimethoprim 1 each PO BID 7 Days #14 tablet 01/05/19 Unknown Rx [Bactrim DS TAB] Active Medications: Generic Name Dose Route Start Last Admin Trade Name Freq PRN Reason Stop Dose Admin Acetaminophen 650 mg 01/04/19 17:30 Tylenol PO Q6H PRN Pain MILD(1-3)/Fever >100.5/LANDIS Capecitabine 1,000 mg 01/04/19 22:00 01/04/19 22:45 Xeloda PO 1,000 mg BID JUAN MANUEL Administration Diphenhydramine HCl 25 mg 01/04/19 17:30 Benadryl PO Q8H PRN Itching Docusate Sodium 100 mg 01/04/19 22:00 01/04/19 22:44 Colace PO 100 mg BID JUAN MANUEL Administration Gabapentin 300 mg 01/04/19 22:00 01/05/19 07:24 Gabapentin PO 300 mg Q8HR JUAN MANUEL Administration Hydromorphone HCl 0.5 mg 01/04/19 13:28 01/04/19 18:19 Dilaudid IV 0.5 mg Q10MIN PRN Administration Pain , Severe (7-10) Lactated Ringer's 1,000 mls @ 100 mls/hr 01/04/19 14:00 01/04/19 14:20 Lactated Ringers IV 100 mls/hr DIRECT JUAN MANUEL Administration Lactated Ringer's 1,000 mls @ 125 mls/hr 01/04/19 18:00 Lactated Ringers IV DIRECT JUAN MANUEL Metoclopramide HCl 10 mg 01/04/19 17:30 Reglan PO Q6H PRN Nausea And Vomiting Miscellaneous Medication 40 mg 01/05/19 10:00 Duloxetine Hcl [Duloxetine Hcl] PO DAILY JUAN MANUEL Morphine Sulfate 2 mg 01/04/19 17:35 01/05/19 06:11 Morphine IV 2 mg Q4H PRN Administration Pain, Moderate (4-6) Ondansetron HCl 4 mg 01/04/19 13:28 Zofran IV ONCE PRN Nausea And Vomiting Ondansetron HCl 4 mg 01/04/19 17:30 Zofran IV Q8H PRN N/V unrelieved by Rachel Oxycodone/Acetaminophen 1 tab 01/04/19 17:30 Percocet 5/325 PO Q6H PRN Pain, Moderate (4-6) Sodium Chloride 10 ml 01/04/19 17:30 Sodium Chloride Flush Syringe 10 Ml IV PRN PRN LINE FLUSH
--- NOTE | 2019-01-05 09:55 | Event Note ---
Date: 01/05/19 Routine post-op visit. Stopped by to see if she had any questions for me. Pain is well controlled. Wound vac is leaking. Will have Wound Care Nurse evaluate. Will f/u on pathology. If cancer presence confirmed, will have to discontinue wound vac as it is contraindicated in this setting. Will make alternative plan in that situation. Explained to patient. She understands.
[2019-01-05] MEDS ORDERED: SULFAMETHOXAZOLE/TRIMETHOPRIM 800/160MG DS TAB PO SCH (10:00)
[2019-01-05] MEDS ORDERED: DULOXETINE HCL 40 MG PO SCH (10:00)
[2019-01-05] MEDS: DOCUSATE SODIUM 100 MG CAP PO SCH (11:25)
[2019-01-05] MEDS: CAPECITABINE 500 MG TAB PO SCH (11:26)
[2019-01-05 16:09] VITALS: BP 101/57
== END 2019-01-05 17:30 | disposition home or self-care (01) ==
LOC: OR 12:26 → OB 17:31
PROVIDERS: ADMIT Surgery; ATTEND Surgery
DX: C50.612 Malignant neoplasm of axillary tail of left female breast (principal); Z79.899 Other long term (current) drug therapy; Z98.890 Other specified postprocedural states
CPT/HCPCS: 19328; 82962; 87075; 87076; 87116; 87186; 88305; 88341; 88342; 96374; 96375; 96376; A4217; G0378; J1170; J2250; J2270; J2405; J2704; J3010; J3246; J7120; 88302; 88304; J0690; J1580; J8521

== ENCOUNTER 2019-01-09 12:52 | Outpatient (CLI) | payer MEDICARE ==
[2019-01-09] MEDS ORDERED: LIDOCAINE (4%) 40 MG/ML TOPICAL SOLN 50 ML BOTTLE TP ONE (14:43)
== END 2019-01-09 12:53 | disposition home or self-care (01) ==
LOC: WOUND 12:52
PROVIDERS: ATTEND Surgery
DX: T85.49XD Other mechanical complication of breast prosthesis and implant, subsequent encounter (principal); S21.002D Unspecified open wound of left breast, subsequent encounter; C50.912 Malignant neoplasm of unspecified site of left female breast; L08.89 Other specified local infections of the skin and subcutaneous tissue; X58.XXXD Exposure to other specified factors, subsequent encounter; Y83.8 Other surgical procedures as the cause of abnormal reaction of the patient, or of later complication, without mention of misadventure at the time of the procedure
CPT/HCPCS: 97605

== ENCOUNTER 2019-01-12 09:11 | Outpatient (CLI) | payer MEDICARE | END 2019-01-12 09:12 | disposition home or self-care (01) | LOC: WOUND 09:11 | PROVIDERS: ATTEND Surgery | DX: T85.49XD Other mechanical complication of breast prosthesis and implant, subsequent encounter (principal); S21.002D Unspecified open wound of left breast, subsequent encounter; C50.912 Malignant neoplasm of unspecified site of left female breast; L08.89 Other specified local infections of the skin and subcutaneous tissue; X58.XXXD Exposure to other specified factors, subsequent encounter; Y83.8 Other surgical procedures as the cause of abnormal reaction of the patient, or of later complication, without mention of misadventure at the time of the procedure | CPT/HCPCS: 97605 ==

== ENCOUNTER 2019-01-17 13:54 | Outpatient (CLI) | payer MEDICARE | END 2019-01-17 13:55 | disposition home or self-care (01) | LOC: WOUND 13:54 | PROVIDERS: ATTEND Surgery | DX: T85.49XD Other mechanical complication of breast prosthesis and implant, subsequent encounter (principal); S21.002D Unspecified open wound of left breast, subsequent encounter; C50.912 Malignant neoplasm of unspecified site of left female breast; L08.89 Other specified local infections of the skin and subcutaneous tissue; X58.XXXD Exposure to other specified factors, subsequent encounter; Y83.8 Other surgical procedures as the cause of abnormal reaction of the patient, or of later complication, without mention of misadventure at the time of the procedure | CPT/HCPCS: 99212; G0463 ==

== ENCOUNTER 2019-01-20 09:59 | Outpatient (CLI) | payer MEDICARE ==
[2019-01-20] MEDS ORDERED: LIDOCAINE (4%) 40 MG/ML TOPICAL SOLN 50 ML BOTTLE TP ONE (10:08)
== END 2019-01-20 10:00 | disposition home or self-care (01) ==
LOC: WOUND 09:59
PROVIDERS: ATTEND Surgery
DX: T85.49XD Other mechanical complication of breast prosthesis and implant, subsequent encounter (principal); S21.002D Unspecified open wound of left breast, subsequent encounter; C50.912 Malignant neoplasm of unspecified site of left female breast; L08.89 Other specified local infections of the skin and subcutaneous tissue; X58.XXXD Exposure to other specified factors, subsequent encounter; Y83.8 Other surgical procedures as the cause of abnormal reaction of the patient, or of later complication, without mention of misadventure at the time of the procedure

== ENCOUNTER 2019-01-31 14:01 | Outpatient (CLI) | payer MEDICARE ==
[2019-01-31] MEDS ORDERED: LIDOCAINE (4%) 40 MG/ML TOPICAL SOLN 50 ML BOTTLE TP ONE (14:08)
[2019-02-01] MEDS ORDERED: LIDOCAINE 1%/EPINEPHRINE 1:100,000 VIAL (20 ML) INFILTRATI ONE (14:45)
== END 2019-01-31 14:02 | disposition home or self-care (01) ==
LOC: WOUND 14:01
PROVIDERS: ATTEND Surgery
DX: T85.49XD Other mechanical complication of breast prosthesis and implant, subsequent encounter (principal); S21.002D Unspecified open wound of left breast, subsequent encounter; C50.912 Malignant neoplasm of unspecified site of left female breast; L08.89 Other specified local infections of the skin and subcutaneous tissue; X58.XXXD Exposure to other specified factors, subsequent encounter; Y83.8 Other surgical procedures as the cause of abnormal reaction of the patient, or of later complication, without mention of misadventure at the time of the procedure

== ENCOUNTER 2019-02-01 11:46 | Observation (INO) | payer MEDICARE ==
[2019-02-01] MEDS ORDERED: SODIUM CHLORIDE 0.9% 1000 ML 1,000 ML IV SCH (12:15)
[2019-02-01] MEDS ORDERED: ONDANSETRON 4 MG/2 ML INJ IV PRN ×2 (12:20→18:41)
[2019-02-01] MEDS ORDERED: HYDROmorphone 1 MG/1 ML INJ IV PRN (12:20)
--- NOTE | 2019-02-01 13:05 | Anesthesia Day of Surgery ---
Anesthesia Day of Surgery - Day of Surgery Patient Examined: Yes Patient H&P Reviewed: Yes Patient is NPO: Yes
--- NOTE | 2019-02-01 13:05 | Anesthesia Consultation ---
Anesthesia Consult and Med Hx Date of service: 02/01/19 - Airway Anesthetic Teeth Evaluation: Good ROM Head & Neck: Adequate Mental/Hyoid Distance: Inadequate Mallampati Class: Class II Intubation Access Assessment: Possibly Difficult - Pulmonary Exam CTA: Yes - Cardiac Exam Cardiac Exam: RRR - Pre-Operative Health Status ASA Pre-Surgery Classification: ASA3 Proposed Anesthetic Plan: General - Pulmonary Hx Smoking: No Hx Respiratory Symptoms: No - Cardiovascular System Hx Hypertension: Yes (no longer on meds since starting chemo) Hx Heart Attack/AMI: No Hx Percutaneous Transluminal Coronary Angioplasty (PTCA): No Hx Cardia Arrhythmia: No - Central Nervous System Hx Neuromuscular Disorder: No (neuropathy) CVA: No - Gastrointestinal Hx Gastroesophageal Reflux Disease: No - Endocrine Hx Renal Disease: No Hx Liver Disease: No Hx Non-Insulin Dependent Diabetes: Yes (diet controlled) Hx Thyroid Disease: No - Hematic Hx Anemia: Yes (Hb 11 on recent outpatient labs) - Other Systems Hx Cancer: Yes (hx breast ca current on chemo therapy (last dose 01/27/19)) Hx Obesity: Yes (BMI 36) - Additional Comments Anesthesia Medical History Comments: Hx PONV.
[2019-02-01] MEDS ORDERED: SCOPOLAMINE TRANSDERMAL PATCH 72 HR TD NR (14:00)
[2019-02-01] MEDS ORDERED: MIDAZOLAM 2 MG/2 ML INJ IV NR (14:00)
[2019-02-01] MEDS ORDERED: PHENYLEPHRINE/NS 1,000 MCG/10 ML SYRINGE (OR USE) IV ONE (14:59)
[2019-02-01] MEDS ORDERED: PROPOFOL 200 MG/20 ML VIAL IV ONE (14:59)
[2019-02-01] MEDS ORDERED: LIDOCAINE MPF (2%) 20 MG/1 ML VIAL 5 ML ONE (14:59)
[2019-02-01] MEDS ORDERED: NEOSTIGMINE 10MG/10 ML INJ MDV ONE (14:59)
[2019-02-01] MEDS ORDERED: dexAMETHasone 20 MG/5 ML VIAL ONE (14:59)
[2019-02-01] MEDS ORDERED: GLYCOPYRROLATE 0.4 MG/2 ML INJ ONE (14:59)
[2019-02-01] MEDS ORDERED: ONDANSETRON 4 MG/2 ML INJ ONE (14:59)
[2019-02-01] MEDS ORDERED: ROCURONIUM 50 MG/5 ML INJ IV ONE (14:59)
[2019-02-01] MEDS ORDERED: fentaNYL 100 MCG/2 ML INJ ONE ×3 (14:59→18:16)
[2019-02-01] MEDS ORDERED: ceFAZolin/STERILE WATER 2 GM/20 ML SYRINGE IV NR (15:30)
[2019-02-01] MEDS ORDERED: LIDOCAINE (1%) 10 MG/1 ML VIAL 20 ML MDV INFILTRATI ONE (16:35)
[2019-02-01] MEDS ORDERED: oxyCODONE /ACETAMINOPHEN 5-325MG TAB PO PRN (18:41)
[2019-02-01] MEDS ORDERED: HYDROmorphone 2 MG TAB PO PRN (18:41)
[2019-02-01] MEDS ORDERED: METOCLOPRAMIDE 10 MG TAB PO PRN (18:41)
[2019-02-01] MEDS ORDERED: diphenhydrAMINE 25 MG CAP PO PRN (18:41)
[2019-02-01] MEDS ORDERED: ACETAMINOPHEN 325 MG TAB PO PRN (18:41)
[2019-02-01] MEDS ORDERED: MORPHINE 2 MG/1 ML INJ IV PRN (18:50)
[2019-02-01] MEDS ORDERED: HYDROmorphone 2 MG/1 ML INJ IV PRN (18:52)
--- NOTE | 2019-02-01 19:03 | Operative Report ---
Operative Report Operative Report: Plastic Surgery Operative Note Preoperative Diagnosis: Open wound of the left chest with recurrent left breast malignancy. Postoperative Diagnosis: Same Procedure: Debridement of left chest wound and closure with rotational flap, 6x9cm. Surgeon: Dr. Adriana Velarde Roller Engraver: None Anesthesia: General EBL: 50cc Specimen: Left chest skin Indications: This patient is a 59 year old AAF who has recurrent breast cancer of the left breast. She previously underwent explantation of her reconstructive implant due to infection. The implant became infected once it was exposed after her cancer recurrence resulted in an open wound of the left chest. At that procedure a VAC dressing was placed and she was subsequently managed by wound care. After several weeks her wound size decreased significantly and her insurance company refused further coverage of VAC dressing. Due to her improvement, she was deemed appropriate for debridement and wound closure. Informed consent was obtained. Procedure: After review of pertinent history and physical exam finsings the patient was broutght into the operating room and placed supine on the OR table. After induction of adequate general endotracheal anesthesia the patient was placed in the lateral decubitus position and the left chest was prepped and agustín ped in the usual sterile surgical fashion. To begin, a No. 10 blade was used to excise the margins of the wound, which measured 6x9cm. An appropriately sized random pattern full thickness skin flap adjacent to the wound was measured out and elevated with a No. 10 blade followed by electrocautery down to the level of the fascia. Hemostasis was achieved with electrocautery and the flap was rotate d into its place where a 3-layered closure was started with 2-0 Monocryl. This was followed by 3-0 Monocryl subcutaneous and 2-0 Nylon interrupted and running sutures. The donor site flaps were elevated proximally and distally for ease of closure and this was also closed in a 3-layered fashion as above. The entire closed wound and donor site was covered with a VIV negative pressure temporary dressing. The patient was then awakened from general anesthesia and transferred to recovery in stable condition. Patient tolerated the procedure well. There were no complications. All sponge, needle and instrument counts were corrected at the end of the case.
--- NOTE | 2019-02-01 20:01 | Post Anesthesia Evaluation ---
- Post Anesthesia Evaluation Patient Participated: Yes Airway Patent: Yes Stable Respiratory Function: Yes Nausea/Vomiting: No Temp > 96.8F: Yes Pain Manageable: Yes Adequeate Hydration: Yes Anesthesia Complications: No
[2019-02-01] MEDS: DOCUSATE SODIUM 100 MG CAP PO SCH (23:46)
[2019-02-02] MEDS: ceFAZolin/NS 1 GM/50 ML 1 GM/50 ML BAG IV SCH ×2 (01:24→12:17)
[2019-02-02] MEDS: LACTATED RINGERS 1,000 ML IV SCH ×2 (04:35→12:21)
[2019-02-02] MEDS: DOCUSATE SODIUM 100 MG CAP PO SCH (09:33)
--- NOTE | 2019-02-02 15:35 | Progress Note ---
Subjective Date of service: 02/02/19 Principal diagnosis: Open wound of the left breast secondary to recurrence of malignancy Interval history: Plastic Surgery Progress Note POD #1 s/p left chest open wound debridement and closure with rotational flap. Patient did well overnight and feels really good this afternoon. She offers no complaints, has been oob, ambulating, is tolerating PO and denies fever or chills. Left chest: VIV dressing in place with some bloody drainage, no leaks. No hematoma or seroma. Plan: Discharge patient to home in the care of her mother. Follow up in 1 week. Prescriptions sent to her pharmacy of choice. Objective - Constitutional Vitals: Vital Signs - 12hr 02/02/19 02/02/19 02/02/19 04:53 07:52 09:49 Temperature 97.9 F 97.5 F L 97.5 F L Pulse Rate 104 H 102 H 106 H Respiratory 20 24 24 Rate Blood Pressure 93/55 104/70 Blood Pressure 104/70 [Left] O2 Sat by Pulse 95 100 Oximetry - Labs Labs: Abnormal lab results 02/01/19 Range/Units 19:52 POC Glucose 164 H (70-105) Medications & Allergies - Medications Allergies/Adverse Reactions: Allergies carboplatin Allergy (Verified 01/31/19 11:25) Shortness of Breath Home Medications: Home Medications Medication Instructions Recorded Confirmed Last Taken Type Capecitabine [Xeloda] 1,000 mg PO BID 01/02/19 02/01/19 01/27/19 History Duloxetine HCl 40 mg PO DAILY 01/02/19 01/31/19 01/31/19 History Gabapentin [Neurontin] 300 mg PO Q8HR 01/02/19 01/31/19 01/31/19 History oxyCODONE /ACETAMINOPHEN [Percocet 1 tab PO Q6HR PRN 02/01/19 02/01/19 02/01/19 11:15 History 5/325 mg] Active Medications: Generic Name Dose Route Start Last Admin Trade Name Freq PRN Reason Stop Dose Admin Acetaminophen 650 mg 02/01/19 18:41 Tylenol PO Q6H PRN Pain MILD(1-3)/Fever >100.5/LANDIS Diphenhydramine HCl 25 mg 02/01/19 18:41 Benadryl PO Q8H PRN Itching Docusate Sodium 100 mg 02/01/19 22:00 02/02/19 09:33 Colace PO 100 mg BID JUAN MANUEL Administration Hydromorphone HCl 2 mg 02/01/19 18:41 Dilaudid PO Q4H PRN Pain , Severe (7-10) Hydromorphone HCl 2 mg 02/01/19 18:52 Dilaudid IV Q4H PRN Pain , Severe (7-10) Sodium Chloride 1,000 mls @ 100 mls/hr 02/01/19 12:15 02/01/19 12:50 Nacl 0.9% 1000 Ml IV 100 mls/hr DIRECT JUAN MANUEL Administration Cefazolin Sodium 1 gm in 50 mls @ 100 mls/hr 02/02/19 01:00 02/02/19 12:17 Ancef/Ns 1 Gm/50 Ml IV 100 mls/hr Q8HR JUAN MANUEL Administration Protocol Lactated Ringer's 1,000 mls @ 125 mls/hr 02/01/19 19:00 02/02/19 12:21 Lactated Ringers IV 125 mls/hr DIRECT JUAN MANUEL Administration Metoclopramide HCl 10 mg 02/01/19 18:41 Reglan PO Q6H PRN Nausea And Vomiting Morphine Sulfate 2 mg 02/01/19 18:50 Morphine IV Q3H PRN Pain , Severe (7-10) Ondansetron HCl 4 mg 02/01/19 18:41 Zofran IV Q8H PRN N/V unrelieved by Reglan Oxycodone/Acetaminophen 2 tab 02/01/19 18:41 02/01/19 23:53 Percocet 5/325 PO 2 tab Q6H PRN Administration Pain, Moderate (4-6) Sodium Chloride 10 ml 02/01/19 18:41 Sodium Chloride Flush Syringe 10 Ml IV PRN PRN LINE FLUSH
[2019-02-02 17:57] VITALS: BP 92/61
== END 2019-02-02 18:51 | disposition home or self-care (01) ==
LOC: 3A 11:46 → INTOOBSV 11:46 → 3A 13:43 → EDSTATUS 18:15 → OB 19:03
PROVIDERS: ADMIT Plastic Surgery; ATTEND Plastic Surgery
DX: C50.912 Malignant neoplasm of unspecified site of left female breast (principal)
CPT/HCPCS: 11042; 82962; 88305; 96365; 96366; G0378; G0379; J0690; J1100; J1170; J2250; J2370; J2405; J2704; J2710; J3010; J7030; J7120

== ENCOUNTER 2019-02-14 07:43 | Outpatient (CLI) | payer MEDICARE | END 2019-02-14 07:44 | disposition home or self-care (01) | LOC: LAB 07:43 | PROVIDERS: ATTEND Surgery | DX: T88.8XXA Other specified complications of surgical and medical care, not elsewhere classified, initial encounter (principal); X58.XXXA Exposure to other specified factors, initial encounter; Y93.89 Activity, other specified; Y92.89 Other specified places as the place of occurrence of the external cause; Y99.8 Other external cause status | CPT/HCPCS: 87075; 87076; 87116; 87186 ==

== ENCOUNTER 2019-03-02 09:07 | Outpatient (CLI) | payer MEDICARE ==
--- NOTE | 2019-03-02 13:50 | PET Report ---
PET/CT Scan03/02/2019 Indication: Left breast cancer Restaging. The patient has undergone interval removal of the left breast implant s econdary to infection. Technique: 14.55 mCi of F18-FDG is administered via the right hand at 1004 hours. Imaging is performed at 1052 hours. Glucose level is 124 mg/dl just prior to the exam. Imaging is performed from the skull base to the proximal thighs. CT imaging is obtained for attenuation correction and anatomic localizatio n. Comparison: PET CT scan dated 12/08/2018 Findings: Postoperative changes are noted in the left anterior chest wall with removal of the left implant. Th ere is significant skin thickening there is some air in the subcutaneous tissue. There is some dystro phic calcification in the soft tissue. There is abnormal uptake in the left anterior chest wall relat ed to the operative site. The pattern of uptake is similar to the prior study from December 08 but the degree of uptake is increased. This measures up to 19.3 SUV currently and measured up to 17.8 SUV pr eviously. There is enlargement of the musculature adjacent to the left scapula. There is periosteal r eaction and destructive change noted in the left scapula. This is increased when compared to the prio r study. On review of the accompanying CT, no pulmonary nodules or masses are seen. No pathologic uptake of tracer is seen in the neck, abdomen, or pelvis. Impression: Postoperative changes are noted in the left anterior chest wall. There is increased metabolic activit y in this location compared to the prior study is not specific. The uptake could indicate neoplasm or infection and/or postoperative change. There is periosteal reaction and some destructive type change noted in the left scapula which is a ne w finding. This could represent neoplasm or osteomyelitis. There is enlargement of the musculature ar ound the left scapula predominantly anteriorly which again could be related to infection or neoplasm Signer Name: Remi Trejo MD Signed: 03/02/2019 1:45 PM Workstation Name: [id number]
== END 2019-03-02 09:08 | disposition home or self-care (01) ==
LOC: PET 09:07
PROVIDERS: ATTEND Internal Medicine Hematology & Oncology
DX: M62.89 Other specified disorders of muscle (principal); C50.112 Malignant neoplasm of central portion of left female breast; D50.0 Iron deficiency anemia secondary to blood loss (chronic)
CPT/HCPCS: 78815; 82962; A9552

== ENCOUNTER 2019-03-16 08:26 | Outpatient (CLI) | payer MEDICARE ==
--- NOTE | 2019-03-16 11:22 | Magnetic Resonance Report ---
MR UPPER EXTREMITY NONJOINT LEFT WITH AND WITHOUT CONTRAST HISTORY: Malignant neoplasm of central portion of left breast, abnormal recent PET/CT. Left shoulder/ scapular pain. TECHNIQUE: Multisequence, multiplanar MRI was obtained through the left scapula before and after 15 c c of MultiHance intravenously. COMPARISON: Correlation is made to the PET/CT dated 03/02/2019 FINDINGS: An ill-defined mildly enhancing mass is identified with epicenter overlying the body of the left scap cathy measuring 3.8 x 3.1 x 5.2 cm. There is bony destruction of the central portions of the scapula. T his mass appears to infiltrate into the left subscapularis muscle and to a lesser extent the left inf raspinatus muscle. The remaining bony structures including the proximal humerus, clavicle and visuali zed left ribs demonstrate normal bone marrow signal. There is moderate subcutaneous edema throughout the left axillary soft tissues. There is also a similar appearing mildly enhancing mass along the left lateral chest wall muscles adj acent to the surgical site measuring up to 5.6 x 2.2 cm in axial plane. I suspect this represents jesse or recurrence along the left chest wall as this area is markedly hypermetabolic on PET imaging. Posts urgical changes/enhancement could also be considered but is thought less likely. IMPRESSION: Left scapular mass consistent with metastasis which infiltrates into the left subscapularis muscle an d to a lesser extent the left infraspinatus muscle. Probable left chest wall tumor recurrence as described. Signer Name: Jesse Reese Jr, MD Signed: 03/16/2019 11:18 AM Workstation Name: [id number]
== END 2019-03-16 08:27 | disposition home or self-care (01) ==
LOC: MRI 08:26
PROVIDERS: ATTEND Internal Medicine Hematology & Oncology
DX: C50.112 Malignant neoplasm of central portion of left female breast (principal); D50.0 Iron deficiency anemia secondary to blood loss (chronic); R22.9 Localized swelling, mass and lump, unspecified
CPT/HCPCS: 73220; A9577

== ENCOUNTER 2019-05-25 09:07 | Outpatient (CLI) | payer MEDICARE ==
--- NOTE | 2019-05-25 14:56 | PET Report ---
PET CT WHOLE BODY HISTORY: Left breast cancer restaging. 03/02/2019 COMPARISON: 03/02/2019 and 12/08/2018 TECHNIQUE: F-18 FDG was administered via the Port-A-Cath. 75 minutes later, the patient underwent de dicated PET CT imaging from the skull base through the mid thighs utilizing an integrated PET CT scan ner. CT transmission images acquired are non-contrast and low dose. CT transmission images are acqui red for lesion localization and attenuation correction. The patient's blood sugar level was document ed to be 130 mg/dL. RADIOPHARMACEUTICAL: 14.890 mCi of F-18 FDG. FINDINGS: HEAD AND NECK: Physiologic activity demonstrated. No suspicious adenopathy. CHEST: No pulmonary nodules or pulmonary mass. No pleural effusion. As post left mastectomy with ilda kaylene of implant. Mass of the left axilla and chest wall blend with a scapular mass which is hypermetab olic. Stable lytic lesions of the scapula. SUV max of the periscapular mass is 9.2 compared to 13.1 o n the last exam. ABDOMEN AND PELVIS: Physiologic activity in the liver, spleen, kidneys, collecting system and bowel. No suspicious adenopathy. Additional Findings: None. IMPRESSION: 1. Left axillary, chest wall and scapular metastasis with decreased FDG uptake compared to the last e xam. No new disease Signer Name: David Rebolledo MD Signed: 05/25/2019 2:51 PM Workstation Name: [id number]
== END 2019-05-25 09:08 | disposition home or self-care (01) ==
LOC: PET 09:07
PROVIDERS: ATTEND Internal Medicine Hematology & Oncology
DX: C50.112 Malignant neoplasm of central portion of left female breast (principal); D50.0 Iron deficiency anemia secondary to blood loss (chronic)
CPT/HCPCS: 78815; 82962; A9552

== ENCOUNTER 2019-07-26 13:02 | Outpatient (CLI) | payer MEDICARE ==
[2019-07-26] MEDS ORDERED: LIDOCAINE (4%) 40 MG/ML TOPICAL SOLN 50 ML BOTTLE TP ONE (13:04)
== END 2019-07-26 13:03 | disposition home or self-care (01) ==
LOC: WOUND 13:02
PROVIDERS: ATTEND Surgery
DX: C43.59 Malignant melanoma of other part of trunk (principal)

== ENCOUNTER 2019-07-31 14:09 | Outpatient (CLI) | payer MEDICARE ==
[2019-07-31] MEDS ORDERED: LIDOCAINE (4%) 40 MG/ML TOPICAL SOLN 50 ML BOTTLE TP ONE (14:35)
== END 2019-07-31 14:10 | disposition home or self-care (01) ==
LOC: WOUND 14:09
PROVIDERS: ATTEND Surgery
DX: C43.59 Malignant melanoma of other part of trunk (principal)

== ENCOUNTER 2019-08-07 14:06 | Outpatient (CLI) | payer MEDICARE ==
[2019-08-07] MEDS ORDERED: LIDOCAINE (4%) 40 MG/ML TOPICAL SOLN 50 ML BOTTLE TP ONE (14:44)
[2019-08-07] MEDS ORDERED: SODIUM CHLORIDE 0.9% IRR 500 ML BOTTLE IR ONE (14:44)
== END 2019-08-07 14:07 | disposition home or self-care (01) ==
LOC: WOUND 14:06
PROVIDERS: ATTEND Surgery
DX: C43.59 Malignant melanoma of other part of trunk (principal)

== ENCOUNTER 2019-08-10 10:25 | Outpatient (CLI) | payer MEDICARE ==
--- NOTE | 2019-08-10 15:27 | PET Report ---
PET sb to mt subsequent INDICATION / CLINICAL INFORMATION: BREAST CA C50.112. Restaging. TRACER: F-18 FDG 10.81 mCi IV injection on 08/10/2019. Blood glucose is 179 mg/dL. TECHNIQUE: Following injection of the above tracer and appropriate delay, PET imaging was performed from the [facility] base to the upper thighs. CT imaging was performed the same time for the purposes of anatomic loca lization. All CT scans at this location are performed using CT dose reduction for ALARA by means of a utomated exposure control. COMPARISON: PET/CT 05/25/2019. FINDINGS: HEAD/NECK: New nodule posterior/inferior left neck measuring 1.3 cm. Maximal SUV is 9.3. CHEST: Persistent uptake at the left axilla/chest wall with bony involvement predominantly at the scapula. M aximal SUV has decreased from 15.6-14. ABDOMEN/PELVIS: No new abnormal uptake. UPPER LEGS: No new abnormal uptake. INCIDENTAL CT FINDINGS: No new incidental CT abnormality. IMPRESSION: 1. Persistent uptake centered at the left axilla, chest wall and scapula. Maximal SUV is mildly decre ased. 2. New nodular uptake lower left neck posteriorly. Signer Name: Nile Heredia MD Signed: 08/10/2019 3:22 PM Workstation Name: [id number]
== END 2019-08-10 10:26 | disposition home or self-care (01) ==
LOC: PET 10:25
PROVIDERS: ATTEND Internal Medicine Hematology & Oncology
DX: C50.112 Malignant neoplasm of central portion of left female breast (principal); D50.0 Iron deficiency anemia secondary to blood loss (chronic); R22.1 Localized swelling, mass and lump, neck
CPT/HCPCS: 78815; 82962; A9552

== ENCOUNTER 2019-09-18 13:12 | Outpatient (CLI) | payer MEDICARE ==
[2019-09-18] MEDS ORDERED: LIDOCAINE (4%) 40 MG/ML TOPICAL SOLN 50 ML BOTTLE TP ONE (13:21)
== END 2019-09-18 13:13 | disposition home or self-care (01) ==
LOC: WOUND 13:12
PROVIDERS: ATTEND Surgery
DX: C43.59 Malignant melanoma of other part of trunk (principal)

== ENCOUNTER 2019-09-29 18:00 | Inpatient (IN) | payer MEDICARE ==
[2019-09-29] MEDS ORDERED: HYDROmorphone 1 MG/1 ML INJ IV ONE (19:46)
[2019-09-29] MEDS ORDERED: ONDANSETRON 4 MG/2 ML INJ IV ONE (19:46)
--- NOTE | 2019-09-29 19:50 | Emergency Department Report ---
HPI - General Chief Complaint: Extremity Injury, Upper Time Seen by Provider: 09/29/19 19:33 - HPI HPI: Room 23 The patient is a 59-year-old female present with a chief complaint of left shoulder and back pain. The patient has a history of metastatic breast CA with known mets to the back and left shoulder per the patient. Patient states she was given pain medication however it is not helping. Patient states she took OxyContin 10 mg but still has pain and gives it a score of 6/10. Patient called her oncologist Dr. Garcia who instructed her to come to the ED. Patient denies fever, nausea/vomiting, cough or shortness of breath. Patient states this is the pain she has had in the past is just not controlled with her current pain medication ED Past Medical Hx - Past Medical History Previous Medical History?: Yes Hx Hypertension: No (pre chemo + for HTN; post chemo -HTN) Hx Diabetes: No (borderline) Additional medical history: breast CA - Surgical History Past Surgical History?: Yes Hx Breast Surgery: (BOBBI IMPLANT RECONST. 04/2010; L AXILLARY EXCISION 2015) Additional Surgical History: bilateral breast Ca with removal,with active ca in left lymph nodes-Chemo - Family History Family history: no significant - Social History Smoking Status: Never Smoker Substance Use Type: None (Denies illicit drug use) ED Review of Systems ROS: Stated complaint: BACK /SHOULDER PAIN Other details as noted in HPI Constitutional: denies: fever Respiratory: denies: shortness of breath Endocrine: no symptoms reported Gastrointestinal: denies: nausea, vomiting Musculoskeletal: arthralgia Physical Exam - Physical Exam Vital Signs: Vital Signs 09/29/19 18:23 Temperature 97.9 F Pulse Rate 106 H Respiratory 22 Rate Blood Pressure 107/57 [Right] O2 Sat by Pulse 98 Oximetry Physical Exam: GENERAL: The patient is well-developed well-nourished female lying on stretcher not appearing to be in acute distress. [] HEENT: Normocephalic. Atraumatic. Extraocular motions are intact. Patient has moist mucous membranes. NECK: Supple. Trachea midline CHEST/LUNGS: Clear to auscultation. There is no respiratory distress noted. HEART/CARDIOVASCULAR: Regular. There is no tachycardia. There is no gallop rub or murmur. ABDOMEN: Abdomen is soft, nontender. Patient has normal bowel sounds. There is no abdominal distention. SKIN: Large ulceration to the left axilla foul odor emanating. There is increased warmth and subcu tissue of the left shoulder. Hyperpigmented region/wound. There is no rash. There is no edema. There is no diaphoresis. NEURO: The patient is awake, alert, and oriented. The patient is cooperative. The patient has normal speech MUSCULOSKELETAL: There is no evidence of acute injury. ED Course Vital Signs 09/29/19 18:23 Temperature 97.9 F Pulse Rate 106 H Respiratory 22 Rate Blood Pressure 107/57 [Right] O2 Sat by Pulse 98 Oximetry ED Medical Decision Making - Lab Data Result diagrams: 09/29/19 20:02 09/29/19 20:02 - Radiology Data Radiology results: report reviewed (Chest x-ray), image reviewed (Chest x-ray) interpreted by me: Chest x-ray-subcu air left shoulder. Left pleural effusion Findings [facility] [address] [place] [address] XRay Report Signed Patient: LAZARO LY MR #: [id number] : [birth year] Acct:[id number] Age/Sex: 59 / F ADM Date: 09/29/19 Loc: ED Attending Dr: Ordering Physician: RACHEL FIORE MD Date of Service: 09/29/19 Procedure(s): XR chest 1V ap Accession Number(s): [id number] cc: RACHEL FIORE MD Fluoro Time In Minutes: CHEST 1 VIEW INDICATION / CLINICAL INFORMATION: Back pain, left shoulder pain and sore throat for one and half weeks. History of breast cancer with radiation therapy, open wound under left underarm from prior mastectomy. COMPARISON: PET/CT scan dated 08/10/2019 FINDINGS: SUPPORT DEVICES: Port-A-Cath appears unchanged HEART / MEDIASTINUM: Unchanged LUNGS / PLEURA: There is a small left effusion. There is elevation of left hemidiaphragm.. No pneumothorax. ADDITIONAL FINDINGS: There is a large amount of subcutaneous air in the left axilla and left shoulder and left supraclavicular location. The amount of soft tissue gas is significantly increased when compared to the prior study. IMPRESSION: 1. There is a large amount of subcutaneous air in the left axilla and left shoulder region and left supraclavicular location. There is a small left effusion. Signer Name: Remi Trejo MD Signed: 09/29/2019 9:59 PM Workstation Name: [id number] Transcribed By: SS Dictated By: Remi Trejo MD Electronically Authenticated By: Remi Trejo MD Signed Date/Time: 09/29/192158 DD/ 55 TD/TT: - Differential Diagnosis Metastatic breast CA Critical care attestation.: If time is entered above; I have spent that time in minutes in the direct care of this critically ill patient, excluding procedure time. ED Disposition Clinical Impression: Metastatic breast cancer, Pain of metastatic malignancy, Wound infection Disposition: -01 TO HOME OR SELFCARE Is pt being admited?: No Does the pt Need Aspirin: No Condition: Stable Referrals: PRIMARY CARE, [Primary Care Provider] - 3-5 Days Time of Disposition: 23:01 (Hospitalist paged (Dr Pena))
[2019-09-29 20:12] LABS: Basophils # (Auto) 0.1 K/mm3 (0.0-0.1); Basophils % (Auto) 0.3 % (0.0-1.8); Eosinophils % (Auto) 0.1 % (0.0-4.3); Hematocrit 27.8 % (30.3-42.9); Hemoglobin 9.4 gm/dl (10.1-14.3); Lymphocytes # (Auto) 0.7 K/mm3 (1.2-5.4); Lymphocytes % (Auto) 3.7 % (13.4-35.0); Mean Corpuscular HGB Conc 34 % (30-34); Mean Corpuscular Volume 100 fl (79-97); Monocytes # (Auto) 1.8 K/mm3 (0.0-0.8); Monocytes % (Auto) 8.8 % (0.0-7.3); Platelet Count 108 K/mm3 (140-440); Red Blood Count 2.77 M/mm3 (3.65-5.03)
[2019-09-29 20:15] LABS: Red Cell Distribution Width 20.1 % (13.2-15.2)
[2019-09-29] MEDS ORDERED: SODIUM CHLORIDE 0.9% 1000 ML 1,000 ML ONE (20:15)
[2019-09-29] MEDS ORDERED: SODIUM CHLORIDE 0.9% 1000 ML 1,000 ML IV ONE ×3 (20:15→21:22)
[2019-09-29 20:22] LABS: INR 1.04 (0.87-1.13)
[2019-09-29 21:04] LABS: Alanine Aminotransferase 8 units/L (7-56); Albumin 2.2 g/dL (3.9-5); Blood Urea Nitrogen 21 mg/dL (7-17); Calcium 6.8 mg/dL (8.4-10.2); Hemolysis Index 3
[2019-09-29 21:18] LABS: BUN/Creatinine Ratio 53
[2019-09-29] MEDS ORDERED: PIPERACIL/TAZOBACTA 4.5/NS 100 4.5 GM/100 ML VIAL IV ONE (21:21)
--- NOTE | 2019-09-29 22:03 | XRay Report ---
CHEST 1 VIEW INDICATION / CLINICAL INFORMATION: Back pain, left shoulder pain and sore throat for one and half weeks. History of breast cancer with r adiation therapy, open wound under left underarm from prior mastectomy. COMPARISON: PET/CT scan dated 08/10/2019 FINDINGS: SUPPORT DEVICES: Port-A-Cath appears unchanged HEART / MEDIASTINUM: Unchanged LUNGS / PLEURA: There is a small left effusion. There is elevation of left hemidiaphragm.. No pneumo thorax. ADDITIONAL FINDINGS: There is a large amount of subcutaneous air in the left axilla and left shoulder and left supraclavicular location. The amount of soft tissue gas is significantly increased when com pared to the prior study. IMPRESSION: 1. There is a large amount of subcutaneous air in the left axilla and left shoulder region and left s upraclavicular location. There is a small left effusion. Signer Name: Remi Trejo MD Signed: 09/29/2019 9:59 PM Workstation Name: [id number]
[2019-09-30] MEDS ORDERED: MORPHINE 2 MG/1 ML INJ IV PRN (00:31)
[2019-09-30] MEDS ORDERED: ONDANSETRON 4 MG/2 ML INJ IV PRN (00:35)
[2019-09-30] MEDS ORDERED: ACETAMINOPHEN 325 MG TAB PO PRN (00:36)
[2019-09-30] MEDS ORDERED: DEXTROSE 50% IN WATER (25GM) 50 ML SYRINGE IV PRN (00:37)
[2019-09-30] MEDS ORDERED: VANCOMYCIN PHARMACY TO DOSE IV SCH (01:00)
[2019-09-30] MEDS ORDERED: PIPERACILLIN/TAZOBACTAM 3.375 3.375 GM/50 ML BAG IV SCH (01:00)
[2019-09-30] MEDS ORDERED: VANCOMYCIN 1,500 MG in SODIUM CHLORIDE 0.9% 500 ML 500 ML IV ONE (01:00)
[2019-09-30] MEDS ORDERED: PIPERACIL/TAZOBACTA 4.5/NS 100 4.5 GM/100 ML VIAL IV SCH (06:00)
--- NOTE | 2019-09-30 06:30 | History and Physical Report ---
History of Present Illness Date of examination: 09/29/19 Date of admission: 09/29/19 22:04 Chief complaint: Chief complaint is back pain and left shoulder area pain History of present illness: History of presenting illness, patient is a 59-year-old female who says she has been having back pain and pain in the left shoulder area going on for quite some time but pain became progressively worse in the last few days and not responsive to pain medication. There was no history of fever or chills, no history of chest pain, shortness of breath ,nausea or vomiting. Patient also presented with open wound in the left shoulder area. Past History Past Medical History: diabetes, hypertension, other (BREAST CANCER) Past Surgical History: mastectomy Social history: no significant social history Family history: no significant family history Medications and Allergies Allergies Allergy/AdvReac Type Severity Reaction Status Date / Time carboplatin Allergy Shortness Verified 01/31/19 11:25 of Breath Active Meds: Active Medications Acetaminophen (Tylenol) 650 mg PO Q4H PRN PRN Reason: Fever >101 Dextrose (D50w (25gm) Syringe) 50 ml IV Q30MIN PRN; Protocol PRN Reason: Hypoglycemia Piperacillin Sod/Tazobactam Sod (Zosyn/Ns 4.5gm/100ml) 4.5 gm in 100 mls @ 200 mls/hr IV Q8HR JUAN MANUEL; Protocol Vancomycin HCl 1,250 mg/ (Sodium Chloride) 275 mls @ 166.667 mls/hr IV Q12H JUAN MANUEL Insulin Human Regular (Humulin R) 0 units SUB-Q AC JUAN MANUEL; Protocol Insulin Human Regular (Humulin R) 0 units SUB-Q QHS JUAN MANUEL; Protocol Morphine Sulfate (Morphine) 2 mg IV Q3H PRN PRN Reason: Pain , Severe (7-10) Ondansetron HCl (Zofran) 4 mg IV Q8H PRN PRN Reason: Nausea And Vomiting Review of Systems Constitutional: no fever, no chills, no sweats, no anorexia, no weakness Eyes: bilateral: other (NO BILATERAL EYE SYMPTOM) Ears, nose, mouth and throat: no ear pain, no tinnitis, no nasal congestion, no mouth pain, no sore throat Breasts: deferred Cardiovascular: no chest pain, no palpitations, no rapid/irregular heart beat, no syncope, no lightheadedness, no shortness of breath, no high blood pressure Respiratory: no cough, no cough with sputum, no excessive sputum, no hemoptysis, no shortness of breath, no dyspnea on exertion, no congestion, no wheezing, no pleurisy Gastrointestinal: no abdominal pain, no nausea, no vomiting, no diarrhea, no constipation, no change in bowel habits Genitourinary Female: no Rectal: no pain, no itching Musculoskeletal: no neck stiffness, no neck pain, no shooting arm pain, no arm numbness/tingling, no low back pain, no hot joints, no muscle weakness, no muscle cramps, no myalgias, no atrophy Integumentary: no rash, no pruritis, no redness, no sores, no wounds, no jaundice, no growths, no darkening of skin, no depigmentation Neurological: no paralysis, no weakness, no parathesias, no numbness, no tingling, no seizures, no syncope, no vertigo, no headaches, no change in speech, no change in mentation, no confusion Psychiatric: no anxiety, no memory loss, no insomnia, no hypersomnia, no change in appetite Endocrine: no cold intolerance, no heat intolerance, no polyuria Hematologic/Lymphatic: no easy bruising, no easy bleeding Allergic/Immunologic: no urticaria Exam - Constitutional Vitals: Temp Pulse Resp BP Pulse Ox 98.0 F 88 18 100/48 98 09/30/19 06:12 09/30/19 06:12 09/30/19 06:12 09/30/19 06:12 09/30/19 06:12 General appearance: Present: mild distress - EENT Eyes: Present: PERRL, EOM intact ENT: hearing intact, clear oral mucosa, dentition normal - Neck Neck: Present: supple - Respiratory Respiratory effort: normal - Cardiovascular Rhythm: regular Heart Sounds: Present: S1 & S2. Absent: gallop, systolic murmur, diastolic murmur, click - Extremities Extremities: no ischemia, No edema Peripheral Pulses: within normal limits - Abdominal General gastrointestinal: Present: soft, non-tender, non-distended. Absent: tender, distended, rigid, hepatomegaly, splenomegaly Female genitourinary: Present: deferred - Rectal Rectal Exam: deferred - Integumentary Integumentary: Present: clear, warm, dry. Absent: rash, clammy - Musculoskeletal Musculoskeletal: strength equal bilaterally - Psychiatric Psychiatric: appropriate mood/affect HEART Score - HEART Score Age: 45-65 Risk factors: 1-2 risk factors - Critical Actions Critical Actions: 0-3 pts:0.9-1.7%risk of adverse cardiac event.Candidate for discharge Results - Labs CBC & Chem 7: 09/29/19 20:02 09/29/19 20: Labs: Laboratory Last Values WBC 20.1 K/mm3 (4.5-11.0) H 09/29/19 20: RBC 2.77 M/mm3 (3.65-5.03) L 09/29/19 20: Hgb 9.4 gm/dl (10.1-14.3) L 09/29/19: Hct 27.8 % (30.3-42.9) L 09/29/19 20: MCV 100 fl (79-97) H 09/29/19 20: MCH 34 pg (28-32) H 09/29/19 20: MCHC 34 % (30-34) 09/29/19 20: RDW 20.1 % (13.2-15.2) H 09/29/19 20: Plt Count 108 K/mm3 (140-440) L 09/29/19 20: Lymph % (Auto) 3.7 % (13.4-35.0) L 09/29/19 20: Gates % (Auto) 8.8 % (0.0-7.3) H 09/29/19 20: Eos % (Auto) 0.1 % (0.0-4.3) 09/29/19 20: Baso % (Auto) 0.3 % (0.0-1.8) 09/29/19 20: Lymph # 0.7 K/mm3 (1.2-5.4) L 09/29/19 20: Gates # 1.8 K/mm3 (0.0-0.8) H 09/29/19 20: Eos # 0.0 K/mm3 (0.0-0.4) 09/29/19 20: Baso # 0.1 K/mm3 (0.0-0.1) 09/29/19 20:02 Seg Neutrophils % 87.1 % (40.0-70.0) H 09/29/19 20:02 Seg Neutrophils # 17.5 K/mm3 (1.8-7.7) H 09/29/19 20:02 PT 13.8 Sec. (12.2-14.9) 09/29/19 20:02 INR 1.04 (0.87-1.13) 09/29/19 20:02 Sodium 124 mmol/L (137-145) L 09/29/19 20:02 Potassium 4.1 mmol/L (3.6-5.0) 09/29/19 20:02 Chloride 87.6 mmol/L (98-107) L 09/29/19 20:02 Carbon Dioxide 23 mmol/L (22-30) 09/29/19 20:02 Anion Gap 18 mmol/L 09/29/19 20:02 BUN 21 mg/dL (7-17) H 09/29/19 20:02 Creatinine 0.4 mg/dL (0.6-1.2) L 09/29/19 20:02 Estimated GFR > 60 ml/min 09/29/19 20:02 BUN/Creatinine Ratio 53 % 09/29/19 20:02 Glucose 217 mg/dL (65-100) H 09/29/19 20:02 Calcium 6.8 mg/dL (8.4-10.2) L 09/29/19 20:02 Magnesium 2.10 mg/dL (1.7-2.3) 09/29/19 20:02 Total Bilirubin 0.70 mg/dL (0.1-1.2) 09/29/19 20:02 AST 15 units/L (5-40) 09/29/19 20:02 ALT 8 units/L (7-56) 09/29/19 20:02 Alkaline Phosphatase 141 units/L (35-129) H 09/29/19 20:02 Total Protein 6.5 g/dL (6.3-8.2) 09/29/19 20:02 Albumin 2.2 g/dL (3.9-5) L 09/29/19 20:02 Albumin/Globulin Ratio 0.5 % 09/29/19 20:02 Microbiology: Microbiology 09/29/19 21:35 Peripheral/Venous Blood Culture - Preliminary Culture in Progress 09/29/19 21:50 Peripheral/Venous Blood Culture - Preliminary Culture in Progress Reid/IV: IV Catheter Type [Right Infusaport Proximal Port Chest] Assessment and Plan - Patient Problems (1) Wound infection Current Visit: Yes Status: Acute Plan to address problem: 1. WOUND CARE NURSE CONSULT 2. I.V ANTIBIUOTICS( VANCOMYCIN AND ZOSYN) 3. I.V MORPHINE FOR PAIN 4. I.V ZOFRAN for nausea and vomiting 5. TYLENOL PO FOR FEVER (2) Hyponatremia Current Visit: Yes Status: Acute Plan to address problem: 1.1.V N/SALINE 2. BMP MORNITORING.
[2019-09-30 08:23] LABS: Blood Urea Nitrogen 13 mg/dL (7-17); Calcium 6.3 mg/dL (8.4-10.2); Hemolysis Index 1
[2019-09-30 08:30] LABS: BUN/Creatinine Ratio 43
[2019-09-30] MEDS: INSULIN REGULAR, HUMAN 100 UNITS/1 ML SUB-Q SCH ×3 (08:43→22:03)
--- NOTE | 2019-09-30 08:45 | Progress Note ---
Assessment and Plan Assessment and plan: 59-year-old female present with a chief complaint of left shoulder and back pain. The patient has a history of metastatic breast CA with known mets to the back and left shoulder per the patient. Patient states she was given pain medication however it is not helping. Patient states she took OxyContin 10 mg but still has pain and gives it a score of 6/10. Patient called her oncologist Dr. Garcia who instructed her to come to the ED. Patient denies fever, nausea/vomiting, cough or shortness of breath. Patient states this is the pain she has had in the past is just not controlled with her current pain medication Left shoulder x-ray: There is a large amount of subcutaneous air in the left axilla and left shoulder region and left supraclavicular location Large Left axillary necrotic wound with abscess with subcu air. Rule out gangrene Hyponatremia Hypokalemia Left upper extremity edema Diabetes Mellitus with hyperglycemia Breast cancer Pain secondary to metastatic breast cancer Plan Continue supportive care continue antibiotics ID consult Surgical consult. Patient states that she follows at the surgical wound care center. Cultures Adjust insulin therapy for better control considering serious infection. Anticipate surgical debridement Pain control DVT and GI prophylaxis Monitor electrolytes and replace Discussed with the patient plan of care she verbalized understanding. Wound care consult Dietitian consult for optimization of nutritional status. History Interval history: Patient seen and examined, very lethargic, wound dressing ongoing by nursing staff Hospitalist Physical - Physical exam Narrative exam: VITAL SIGNS: Reviewed. GENERAL: The patient appears normally developed, chronically ill-appearing vital signs as documented. HEAD: No signs of head trauma. EYES: Pupils are equal. Extraocular motions intact. EARS: Hearing grossly intact. MOUTH: Oropharynx is normal. NECK: No adenopathy, no JVD. CHEST: Chest with clear breath sounds bilaterally. No wheezes, rales, or rhonchi. CARDIAC: Regular rate and rhythm. S1 and S2, without murmurs, gallops, or rubs. VASCULAR: No Edema. Peripheral pulses normal and equal in all extremities. ABDOMEN: Soft, non tender and non distended. No rebound or guarding, and no masses palpated. Bowel Sounds normal. MUSCULOSKELETAL: Deformation of the left chest wall noted. Status post mastectomy. Limited range of motion of left upper extremity with grossly en larged size greater than 5 times the size of the right upper extremity. Significant pitting edema. Otherwise all other joints with good range of motion. Extremities without clubbing, cyanosis NEUROLOGIC EXAM: Alert and oriented x 3 No focal sensory or strength deficits. Speech normal. Follows commands. PSYCHIATRIC: Mood normal. SKIN: Severe malodorous left shoulder extending to the axilla abscess with wound draining purulent secretions. Please see wound documentation - Constitutional Vitals: Temp Pulse Resp BP Pulse Ox 98.0 F 88 18 100/48 98 09/30/19 06:12 09/30/19 06:12 09/30/19 06:12 09/30/19 06:12 09/30/19 06:12 General appearance: Present: mild distress HEART Score - HEART Score Age: 45-65 Risk factors: 1-2 risk factors - Critical Actions Critical Actions: 0-3 pts:0.9-1.7%risk of adverse cardiac event.Candidate for discharge Results - Labs CBC & Chem 7: 09/29/19 20:02 09/30/19 07:45 Labs: Laboratory Last Values WBC 20.1 K/mm3 (4.5-11.0) H 09/29/19 20:02 RBC 2.77 M/mm3 (3.65-5.03) L 09/29/19 20:02 Hgb 9.4 gm/dl (10.1-14.3) L 09/29/19 20:02 Hct 27.8 % (30.3-42.9) L 09/29/19 20:02 MCV 100 fl (79-97) H 09/29/19 20:02 MCH 34 pg (28-32) H 09/29/19 20:02 MCHC 34 % (30-34) 09/29/19 20:02 RDW 20.1 % (13.2-15.2) H 09/29/19 20:02 Plt Count 108 K/mm3 (140-440) L 09/29/19 20:02 Lymph % (Auto) 3.7 % (13.4-35.0) L 09/29/19 20:02 [place] % (Auto) 8.8 % (0.0-7.3) H 09/29/19 20:02 Eos % (Auto) 0.1 % (0.0-4.3) 09/29/19 20:02 Baso % (Auto) 0.3 % (0.0-1.8) 09/29/19 20:02 Lymph # 0.7 K/mm3 (1.2-5.4) L 09/29/19 20:02 [place] # 1.8 K/mm3 (0.0-0.8) H 09/29/19 20:02 Eos # 0.0 K/mm3 (0.0-0.4) 09/29/19 20:02 Baso # 0.1 K/mm3 (0.0-0.1) 09/29/19 20:02 Seg Neutrophils % 87.1 % (40.0-70.0) H 09/29/19 20:02 Seg Neutrophils # 17.5 K/mm3 (1.8-7.7) H 09/29/19 20:02 PT 13.8 Sec. (12.2-14.9) 09/29/19 20:02 INR 1.04 (0.87-1.13) 09/29/19 20:02 Sodium 129 mmol/L (137-145) L 09/30/19 07:45 Potassium 3.4 mmol/L (3.6-5.0) L 09/30/19 07:45 Chloride 95.8 mmol/L (98-107) L 09/30/19 07:45 Carbon Dioxide 22 mmol/L (22-30) 09/30/19 07:45 Anion Gap 15 mmol/L 09/30/19 07:45 BUN 13 mg/dL (7-17) 09/30/19 07:45 Creatinine 0.3 mg/dL (0.6-1.2) L 09/30/19 07:45 Estimated GFR > 60 ml/min 09/30/19 07:45 BUN/Creatinine Ratio 43 % 09/30/19 07:45 Glucose 199 mg/dL (65-100) H 09/30/19 07:45 POC Glucose 208 (70-105) H 09/30/19 08:07 Calcium 6.3 mg/dL (8.4-10.2) L 09/30/19 07:45 Magnesium 2.10 mg/dL (1.7-2.3) 09/29/19 20:02 Total Bilirubin 0.70 mg/dL (0.1-1.2) 09/29/19 20:02 AST 15 units/L (5-40) 09/29/19 20:02 ALT 8 units/L (7-56) 09/29/19 20:02 Alkaline Phosphatase 141 units/L (35-129) H 09/29/19 20:02 Total Protein 6.5 g/dL (6.3-8.2) 09/29/19 20:02 Albumin 2.2 g/dL (3.9-5) L 09/29/19 20:02 Albumin/Globulin Ratio 0.5 % 09/29/19 20:02 Microbiology: Microbiology 09/29/19 21:35 Peripheral/Venous Blood Culture - Preliminary Culture in Progress 09/29/19 21:50 Peripheral/Venous Blood Culture - Preliminary Culture in Progress Reid/IV: IV Catheter Type [Right Infusaport Proximal Port Chest] Active Medications - Current Medications Current Medications: Generic Name Dose Route Start Last Admin Trade Name Freq PRN Reason Stop Dose Admin Acetaminophen 650 mg 09/30/19 00:36 Tylenol PO Q4H PRN Fever >101 Dextrose 50 ml 09/30/19 00:37 D50w (25gm) Syringe IV Q30MIN PRN Hypoglycemia Protocol Duloxetine HCl 60 mg 09/30/19 10:00 Cymbalta PO QDAY JUAN MANUEL Hydromorphone HCl 1 mg 09/30/19 08:42 Dilaudid IV Q3H PRN Pain , Severe (7-10) Piperacillin Sod/Tazobactam Sod 4.5 gm in 100 mls @ 200 mls/hr 09/30/19 06:00 09/30/19 07:34 Zosyn/Ns 4.5gm/100ml IV 200 mls/hr Q8HR JUAN MANUEL Administration Protocol Vancomycin HCl 1,250 mg/ 275 mls @ 166.667 mls/hr 09/30/19 14:00 Sodium Chloride IV Q12H JUAN MANUEL Sodium Chloride 1,000 mls @ 75 mls/hr 09/30/19 06:45 Nacl 0.9% 1000 Ml IV DIRECT JUAN MANUEL Insulin Human Regular 0 units 09/30/19 07:30 09/30/19 08:43 Humulin R SUB-Q 2 units AC JUAN MANUEL Administration Protocol Insulin Human Regular 0 units 09/30/19 22:00 Humulin R SUB-Q QHS JUAN MANUEL Protocol Ondansetron HCl 4 mg 09/30/19 00:35 Zofran IV Q8H PRN Nausea And Vomiting Oxycodone/Acetaminophen 2 tab 09/30/19 08:44 Percocet 5/325 PO Q6H PRN Pain, Moderate (4-6) Pregabalin 75 mg 09/30/19 10:00 Pregabalin PO QDAY JUAN MANUEL
[2019-09-30] MEDS ORDERED: POTASSIUM CHLORIDE ER 20 MEQ TAB PO ONE (08:47)
[2019-09-30] MEDS: DULoxetine 30 MG CAP PO SCH (10:29)
[2019-09-30] MEDS: PREGABALIN 75 MG CAP PO SCH (10:29)
--- NOTE | 2019-09-30 12:03 | Consultation ---
History of Present Illness - Reason for Consult Consult date: 09/30/19 - History of Present Illness 59-year-old female past medical history diabetes, hypertension, breast cancer presented to the hospital complaining of back pain and left shoulder pain. She is unsure exactly when the symptoms began, however they became progressively worse in the last few days. She otherwise denies any symptoms including fevers, sweats, chills. Also denies chest pain, shortness of breath. There is a open wound in the shoulder area. Afebrile since admission with a white count of 20.1. She is currently receiving vancomycin and Zosyn. Blood cultures currently pending. Imaging personally reviewed: Chest x-ray: Subcutaneous air in the left axilla and shoulder region. Review of Systems: Bold if positive, otherwise negative General: fevers, chills, rigors HEENT: visual disturbance, diplopia, eye pain Respiratory: cough, sputum, hemoptysis, shortness of breath Cardiovascular: chest pain, syncope Gastrointestinal: nausea, vomiting, diarrhea, abdominal pain Genitourinary: dysuria, hematuria, flank pain Musculoskeletal: neck pain, back pain, joint pain, edema Neurologic: headaches, seizures Hematologic: easy bruising or bleeding Endocrine: night sweats, acute weight loss Skin: rash, jaundice, redness Psychiatric: suicidal, homicidal ideation Past History Past Medical History: diabetes, hypertension, other (BREAST CANCER) Past Surgical History: mastectomy Social history: no significant social history Family history: no significant family history Medications and Allergies Allergies Allergy/AdvReac Type Severity Reaction Status Date / Time carboplatin Allergy Shortness Verified 01/31/19 11:25 of Breath Active Meds: Active Medications Acetaminophen (Tylenol) 650 mg PO Q4H PRN PRN Reason: Fever >101 Dextrose (D50w (25gm) Syringe) 50 ml IV Q30MIN PRN; Protocol PRN Reason: Hypoglycemia Duloxetine HCl (Cymbalta) 60 mg PO QDAY JUAN MANUEL Last Admin: 09/30/19 10:29 Dose: 60 mg Documented by: Hydromorphone HCl (Dilaudid) 1 mg IV Q3H PRN PRN Reason: Pain , Severe (7-10) Piperacillin Sod/Tazobactam Sod (Zosyn/Ns 4.5gm/100ml) 4.5 gm in 100 mls @ 200 mls/hr IV Q8HR JUAN MANUEL; Protocol Last Admin: 09/30/19 07:34 Dose: 200 mls/hr Documented by: Vancomycin HCl 1,250 mg/ (Sodium Chloride) 275 mls @ 166.667 mls/hr IV Q12H JUAN MANUEL Sodium Chloride (Nacl 0.9% 1000 Ml) 1,000 mls @ 75 mls/hr IV DIRECT JUAN MANUEL Insulin Human Regular (Humulin R) 0 units SUB-Q AC JUAN MANUEL; Protocol Last Admin: 09/30/19 08:43 Dose: 2 units Documented by: Insulin Human Regular (Humulin R) 0 units SUB-Q QHS JUAN MANUEL; Protocol Ondansetron HCl (Zofran) 4 mg IV Q8H PRN PRN Reason: Nausea And Vomiting Oxycodone/Acetaminophen (Percocet 5/325) 2 tab PO Q6H PRN PRN Reason: Pain, Moderate (4-6) Pregabalin (Pregabalin) 75 mg PO QDAY [facility] Last Admin: 09/30/19 10:29 Dose: 75 mg Documented by: Physical Examination - Physical Exam Narrative exam: Physical Exam: Constitutional: Alert, cooperative. No acute distress Head, Ears, Nose: Normocephalic, atraumatic. External ears, nose normal Eyes: Conjunctivae/corneas clear. No icterus. No ptosis. Neck: Supple, no meningeal signs Oral: dentition fair, no thrush Cardiovascular: S1, S2 normal. Respiratory: Good air entry, clear to auscultation bilaterally GI: Soft, non-tender; bowel sounds normal. No peritoneal signs. Musculoskeletal: Left axilla with large ulceration possible foul smell. Skin: No rash or abscess Hem/Lymphatic: No palpable cervical or supraclavicular nodes. No lymphangitis Psych: Mood ok. Affect normal Neurological: Awake, alert, oriented. No gross abnormality - Constitutional Vitals: Vital Signs Temp Pulse Resp BP Pulse Ox 98.1 F 112 H 20 99/62 100 09/30/19 10:49 09/30/19 10:49 09/30/19 10:49 09/30/19 10:49 09/30/19 10:49 Temperature -Last 24 Hours Temperature 98.1 F Temperature 98.2 F Temperature 98.0 F Temperature 97.9 F Results - Labs CBC & Chem 7: 09/29/19 20:02 09/30/19 07:45 Labs: Abnormal lab results 09/29/19 09/29/19 09/30/19 Range/Units 20:02 20:02 07:45 WBC 20.1 H (4.5-11.0) K/mm3 RBC 2.77 L (3.65-5.03) M/mm3 Hgb 9.4 L (10.1-14.3) gm/dl Hct 27.8 L (30.3-42.9) % MCV 100 H (79-97) fl MCH 34 H (28-32) pg RDW 20.1 H (13.2-15.2) % Plt Count 108 L (140-440) K/mm3 Lymph % (Auto) 3.7 L (13.4-35.0) % [place] % (Auto) 8.8 H (0.0-7.3) % Lymph # 0.7 L (1.2-5.4) K/mm3 [place] # 1.8 H (0.0-0.8) K/mm3 Seg Neutrophils % 87.1 H (40.0-70.0) % Seg Neutrophils # 17.5 H (1.8-7.7) K/mm3 Sodium 124 L 129 L (137-145) mmol/L Potassium 3.4 L (3.6-5.0) mmol/L Chloride 87.6 L 95.8 L (98-107) mmol/L BUN 21 H (7-17) mg/dL Creatinine 0.4 L 0.3 L (0.6-1.2) mg/dL Glucose 217 H 199 H (65-100) mg/dL POC Glucose (70-105) Calcium 6.8 L 6.3 L (8.4-10.2) mg/dL Alkaline Phosphatase 141 H (35-129) units/L Albumin 2.2 L (3.9-5) g/dL 09/30/19 09/30/19 Range/Units 08:07 11:28 WBC (4.5-11.0) K/mm3 RBC (3.65-5.03) M/mm3 Hgb (10.1-14.3) gm/dl Hct (30.3-42.9) % MCV (79-97) fl MCH (28-32) pg RDW (13.2-15.2) % Plt Count (140-440) K/mm3 Lymph % (Auto) (13.4-35.0) % [place] % (Auto) (0.0-7.3) % Lymph # (1.2-5.4) K/mm3 [place] # (0.0-0.8) K/mm3 Seg Neutrophils % (40.0-70.0) % Seg Neutrophils # (1.8-7.7) K/mm3 Sodium (137-145) mmol/L Potassium (3.6-5.0) mmol/L Chloride (98-107) mmol/L BUN (7-17) mg/dL Creatinine (0.6-1.2) mg/dL Glucose (65-100) mg/dL POC Glucose 208 H 231 H (70-105) Calcium (8.4-10.2) mg/dL Alkaline Phosphatase (35-129) units/L Albumin (3.9-5) g/dL Assessment and Plan Cultures: Blood culture 09/29/2019 pending A/P: 59-year-old female past medical history diabetes, hypertension, breast cancer admitted with large necrotic wound. #Left axillary necrotic wound with abscess: Pending evaluation by surgery. Patient will need significant amount of debridement. Ordered wound swab to help guide antibiotics, however definitive cultures should be obtained during debrid ement from deep tissue. #Diabetes: tight glycemic control for best outcomes. #Breast cancer: Not neutropenic. Wound likely secondary to cancer versus treatment. Recs: -Continue vancomycin, goal trough 10-20 -Stop Zosyn to avoid added nephrotoxic effects of combination with vancomycin -Start cefepime and metronidazole -Obtain wound swab -Follow-up surgical recommendations, please obtain deep tissue cultures for definitive microbiology Dr. Coffey taking over Wednesday Thank you for the consult, we will continue to follow. Keila Del Rosario MD [facility] ([facility] M: [phone] O: [phone] F: [phone]
[2019-09-30] MEDS: VANCOMYCIN 1,250 MG in SODIUM CHLORIDE 0.9% 250ML 250 ML IV SCH (13:16)
[2019-09-30] MEDS: metroNIDAZOLE 500 MG TAB PO SCH ×2 (13:16→22:25)
--- NOTE | 2019-09-30 14:13 | Consultation ---
History of Present Illness Consult date: 09/30/19 Chief complaint: Left shoulder abscess - History of present illness History of present illness: 59-year-old female with metastatic breast cancer who is managed by Dr. Kelly and Dr. Garcia as an outpatient, presented to the emergency room with increased pain in the left shoulder region. The patient is well-known in the wound care center for a chronic left axillary wound for which she was recently seen by Dr. Palumbo on 09/18/2019 and placed on palliative care. The patient also states that she underwent radiation approximately 3 weeks ago to this area. She noticed the area of her left shoulder starting to become more painful with skin changes approximately 2 weeks ago. Shortly thereafter, the area started draining. This slowly became worse and she was sent to the emergency room for evaluation. The patient was found to have a necrotic appearing wound of her left shoulder and surgery was consulted. She has been afebrile. Past History Past Medical History: diabetes, hypertension, other (BREAST CANCER) Past Surgical History: mastectomy, Other (Left axillary wound debridement) Social history: no significant social history Family history: no significant family history Medications and Allergies Allergies Allergy/AdvReac Type Severity Reaction Status Date / Time carboplatin Allergy Shortness Verified 01/31/19 11:25 of Breath Active Meds: Active Medications Acetaminophen (Tylenol) 650 mg PO Q4H PRN PRN Reason: Fever >101 Dextrose (D50w (25gm) Syringe) 50 ml IV Q30MIN PRN; Protocol PRN Reason: Hypoglycemia Duloxetine HCl (Cymbalta) 60 mg PO QDAY JUAN MANUEL Last Admin: 09/30/19 10:29 Dose: 60 mg Documented by: Hydromorphone HCl (Dilaudid) 1 mg IV Q3H PRN PRN Reason: Pain , Severe (7-10) Vancomycin HCl 1,250 mg/ (Sodium Chloride) 275 mls @ 166.667 mls/hr IV Q12H JUAN MANUEL Last Admin: 09/30/19 13:16 Dose: 166.667 mls/hr Documented by: Sodium Chloride (Nacl 0.9% 1000 Ml) 1,000 mls @ 75 mls/hr IV DIRECT JUAN MANUEL Cefepime HCl (Cefepime/Ns 2 Gm/100 Ml) 2 gm in 100 mls @ 200 mls/hr IV Q8HR JUAN MANUEL; Protocol Insulin Human Regular (Humulin R) 0 units SUB-Q AC JUAN MANUEL; Protocol Last Admin: 09/30/19 13:16 Dose: 2 units Documented by: Insulin Human Regular (Humulin R) 0 units SUB-Q QHS [facility]; Protocol Metronidazole (Flagyl) 500 mg PO Q8HR JUAN MANUEL; Protocol Last Admin: 09/30/19 13:16 Dose: 500 mg Documented by: Ondansetron HCl (Zofran) 4 mg IV Q8H PRN PRN Reason: Nausea And Vomiting Oxycodone/Acetaminophen (Percocet 5/325) 2 tab PO Q6H PRN PRN Reason: Pain, Moderate (4-6) Pregabalin (Pregabalin) 75 mg PO QDAY JUAN MANUEL Last Admin: 09/30/19 10:29 Dose: 75 mg Documented by: Review of Systems All systems: negative (10 point review of systems performed and negative except for that listed in HPI) Exam Vital Signs Temp Pulse Resp BP Pulse Ox 97.9 F 106 H 22 107/57 98 09/29/19 18:23 09/29/19 18:23 09/29/19 18:23 09/29/19 18:23 09/29/19 18:23 Narrative exam: Gen.: Awake, alert, oriented 3. No apparent distress ENT: Trachea midline. No lymphadenopathy. No scleral icterus or conjunctival pallor CV: S1, S2 present Respiratory: No audible wheezes Abdomen: Soft, nondistended, nontender. No rebound, rigidity, guarding Extremities: Angioedema involving the entire left upper extremity. The left upper extremity is flaccid. There is a clean wound of the left axilla with a dressing in place. There is necrosis of the skin involving the left shoulder superiorly and posteriorly with fluctuance, induration, erythema. Results - Labs 09/29/19 20:02 09/30/19 07:45 Abnormal lab results 09/29/19 09/29/19 09/30/19 Range/Units 20:02 20:02 07:45 WBC 20.1 H (4.5-11.0) K/mm3 RBC 2.77 L (3.65-5.03) M/mm3 Hgb 9.4 L (10.1-14.3) gm/dl Hct 27.8 L (30.3-42.9) % MCV 100 H (79-97) fl MCH 34 H (28-32) pg RDW 20.1 H (13.2-15.2) % Plt Count 108 L (140-440) K/mm3 Lymph % (Auto) 3.7 L (13.4-35.0) % [place] % (Auto) 8.8 H (0.0-7.3) % Lymph # 0.7 L (1.2-5.4) K/mm3 [place] # 1.8 H (0.0-0.8) K/mm3 Seg Neutrophils % 87.1 H (40.0-70.0) % Seg Neutrophils # 17.5 H (1.8-7.7) K/mm3 Sodium 124 L 129 L (137-145) mmol/L Potassium 3.4 L (3.6-5.0) mmol/L Chloride 87.6 L 95.8 L (98-107) mmol/L BUN 21 H (7-17) mg/dL Creatinine 0.4 L 0.3 L (0.6-1.2) mg/dL Glucose 217 H 199 H (65-100) mg/dL POC Glucose (70-105) Calcium 6.8 L 6.3 L (8.4-10.2) mg/dL Alkaline Phosphatase 141 H (35-129) units/L Albumin 2.2 L (3.9-5) g/dL 09/30/19 09/30/19 Range/Units 08:07 11:28 WBC (4.5-11.0) K/mm3 RBC (3.65-5.03) M/mm3 Hgb (10.1-14.3) gm/dl Hct (30.3-42.9) % MCV (79-97) fl MCH (28-32) pg RDW (13.2-15.2) % Plt Count (140-440) K/mm3 Lymph % (Auto) (13.4-35.0) % [place] % (Auto) (0.0-7.3) % Lymph # (1.2-5.4) K/mm3 [place] # (0.0-0.8) K/mm3 Seg Neutrophils % (40.0-70.0) % Seg Neutrophils # (1.8-7.7) K/mm3 Sodium (137-145) mmol/L Potassium (3.6-5.0) mmol/L Chloride (98-107) mmol/L BUN (7-17) mg/dL Creatinine (0.6-1.2) mg/dL Glucose (65-100) mg/dL POC Glucose 208 H 231 H (70-105) Calcium (8.4-10.2) mg/dL Alkaline Phosphatase (35-129) units/L Albumin (3.9-5) g/dL Diabetes panel 09/29/19 09/30/19 Range/Units 20:02 07:45 Sodium 124 L 129 L (137-145) mmol/L Potassium 4.1 3.4 L (3.6-5.0) mmol/L Chloride 87.6 L 95.8 L (98-107) mmol/L Carbon Dioxide 23 22 (22-30) mmol/L BUN 21 H 13 (7-17) mg/dL Creatinine 0.4 L 0.3 L (0.6-1.2) mg/dL Glucose 217 H 199 H (65-100) mg/dL Calcium 6.8 L 6.3 L (8.4-10.2) mg/dL AST 15 (5-40) units/L ALT 8 (7-56) units/L Alkaline Phosphatase 141 H (35-129) units/L Total Protein 6.5 (6.3-8.2) g/dL Albumin 2.2 L (3.9-5) g/dL Calcium panel 09/29/19 09/30/19 Range/Units 20:02 07:45 Calcium 6.8 L 6.3 L (8.4-10.2) mg/dL Albumin 2.2 L (3.9-5) g/dL Pituitary panel 09/29/19 09/30/19 Range/Units 20:02 07:45 Sodium 124 L 129 L (137-145) mmol/L Potassium 4.1 3.4 L (3.6-5.0) mmol/L Chloride 87.6 L 95.8 L (98-107) mmol/L Carbon Dioxide 23 22 (22-30) mmol/L BUN 21 H 13 (7-17) mg/dL Creatinine 0.4 L 0.3 L (0.6-1.2) mg/dL Glucose 217 H 199 H (65-100) mg/dL Calcium 6.8 L 6.3 L (8.4-10.2) mg/dL Adrenal panel 09/29/19 09/30/19 Range/Units 20:02 07:45 Sodium 124 L 129 L (137-145) mmol/L Potassium 4.1 3.4 L (3.6-5.0) mmol/L Chloride 87.6 L 95.8 L (98-107) mmol/L Carbon Dioxide 23 22 (22-30) mmol/L BUN 21 H 13 (7-17) mg/dL Creatinine 0.4 L 0.3 L (0.6-1.2) mg/dL Glucose 217 H 199 H (65-100) mg/dL Calcium 6.8 L 6.3 L (8.4-10.2) mg/dL Total Bilirubin 0.70 (0.1-1.2) mg/dL AST 15 (5-40) units/L ALT 8 (7-56) units/L Alkaline Phosphatase 141 H (35-129) units/L Total Protein 6.5 (6.3-8.2) g/dL Albumin 2.2 L (3.9-5) g/dL - Imaging Chest x-ray: report reviewed, image reviewed Assessment and Plan 59-year-old female with necrotizing soft tissue infection of the left shoulder Chest x-ray -left shoulder subcutaneous emphysema Plan: 1. keep NPO 2. IVF 3. prn pain control 4. abx per ID 5. recommend incision, drainage, debridement of left shoulder abscess/necrotizing infection. I discussed with the patient the need for debridement. All risk, benefits, alternatives to the procedure were discussed and questions answered. Consent obtained. We will add to the OR for today. Patient is going to call her mother to inform her of the plan. Thank you for this consultation. Please call with any questions or concerns. Evaluation and treatment of this patient was during the time of the national and state emergency arising from COVID19 coronavirus pandemic. Treatment and procedures performed meet the current and available best practice and guidelines for patient during the COVID pandemic.
[2019-09-30] MEDS: CEFEPIME/NS 2 GM/100 ML 2 GM/100 ML BAG IV SCH ×2 (15:51→22:19)
[2019-09-30] MEDS ORDERED: LIDOCAINE (1%) 10 MG/1 ML VIAL 20 ML MDV ONE (16:18)
[2019-09-30] MEDS ORDERED: BUPIVACAINE/PF (0.5%) 5 MG/1 ML 30 ML VIAL INFILTRATI ONE ×2 (16:18→18:20)
[2019-09-30] MEDS ORDERED: HYDROmorphone 1 MG/1 ML INJ ONE (16:22)
[2019-09-30] MEDS ORDERED: propofoL 200 MG/20 ML VIAL IV ONE ×2 (16:22→18:14)
[2019-09-30] MEDS ORDERED: KETAMINE/STERILE WATER 50 MG/ML SYRINGE ONE (16:22)
[2019-09-30] MEDS ORDERED: LIDOCAINE MPF (2%) 20 MG/1 ML VIAL 5 ML ONE (16:24)
--- NOTE | 2019-09-30 17:25 | Anesthesia Consultation ---
Anesthesia Consult and Med Hx - Airway Anesthetic Teeth Evaluation: Good ROM Head & Neck: Adequate Mental/Hyoid Distance: Adequate Mallampati Class: Class I - Pre-Operative Health Status ASA Pre-Surgery Classification: ASA3 Proposed Anesthetic Plan: MAC - Pulmonary Hx Smoking: No Hx Asthma: No Hx Respiratory Symptoms: No COPD: No Hx Pneumonia: No - Cardiovascular System Hx Hypertension: No (pre chemo + for HTN; post chemo -HTN) Hx Heart Attack/AMI: No Hx Percutaneous Transluminal Coronary Angioplasty (PTCA): No Hx Cardia Arrhythmia: No - Central Nervous System Hx Neuromuscular Disorder: No (neuropathy) Hx Seizures: No CVA: No Hx Psychiatric Problems: No - Gastrointestinal Hx Gastroesophageal Reflux Disease: No - Endocrine Hx Renal Disease: No Hx End Stage Renal Disease: No Hx Liver Disease: No Hx Non-Insulin Dependent Diabetes: Yes (diet controlled) Hx Thyroid Disease: No - Hematic Hx Anemia: Yes (Hb 11 on recent outpatient labs) - Other Systems Hx Alcohol Use: No Hx Substance Use: No Hx Cancer: Yes (left breast) Hx Obesity: Yes (BMI 36) - Additional Comments Anesthesia Medical History Comments: Patient denies previous anesthesia complications.
--- NOTE | 2019-09-30 17:31 | Anesthesia Day of Surgery ---
Anesthesia Day of Surgery - Day of Surgery Patient Examined: Yes Patient H&P Reviewed: Yes Patient is NPO: Yes
[2019-09-30] MEDS ORDERED: SODIUM HYPOCHLORITE, DAKIN'S FULL STRENGTH (0.5%) 473 ML TOPICAL SOLN ONE (17:55)
[2019-09-30] MEDS ORDERED: SODIUM CHLORIDE 0.9% IRRIG SOLN 2000 ML IR ONE (18:18)
[2019-09-30] MEDS ORDERED: SODIUM CHLORIDE 0.9% IRR 1,500 ML BOTTLE IR ONE (18:19)
[2019-09-30] MEDS ORDERED: SODIUM HYPOCHLORITE, DAKIN'S 1/2 STRENGTH (0.25%) 473 ML TOPICAL SOLN IR ONE (18:20)
[2019-09-30] MEDS ORDERED: LIDOCAINE (2%) 20 MG/1 ML VIAL 20 ML MDV INFILTRATI ONE (18:25)
--- NOTE | 2019-09-30 18:42 | Operative Report ---
Operative Report Operative Report: Date of surgery: 09/30/2019 Preoperative diagnosis: Abscess of left shoulder with necrotizing soft tissue infection Postoperative diagnosis: Necrotizing fasciitis of left shoulder Procedure: Wide excisional debridement of necrotizing fasciitis of left shoulder Surgeon: Carole Anesthesia: MAC/local Findings: Extensive necrotizing fasciitis of the left superior and posterior shoulder. Necrotic skin and subcutaneous tissue, muscle and fascia extending to the bone. Bone visible. Copious amount of purulent and grayish fluid EBL: 5 cc Specimen: Tissue for culture Complications: None Disposition: Stable to PACU HPI and indication: Patient is a 59-year-old female with a history of metastatic breast cancer. She has been receiving radiation to her left side and noticed a wound developing along with discoloration of her left shoulder 2 weeks ago. She was instructed to come to the hospital by her doctor and presented to the ER yesterday. Patient was found to have necrosis of the skin, leukocytosis, and a chest x-ray showing extensive subcutaneous emphysema in the area of the left shoulder. Surgery was consulted for evaluation. Patient was suspected to have a necrotizing soft tissue infection with abscess involving the left shoulder and it was recommended she undergo incision, drainage, debridement of the area. All risk, benefits, alternatives to surgery discussed with the patient questions answered. Consent was obtained. Procedure in detail: The patient was identified in the preoperative area, take back to operating room. She remained on her stretcher and was turned onto her right side in order to expose the left shoulder area. All bony prominences were padded appropriately. The left shoulder was prepped and draped in usual sterile fashion a timeout performed. Local anesthetic was infiltrated into the skin and subcutaneous tissue at the intended incision site. There was a large area of necrotic skin of the superior and posterior shoulder. Wide local excision of the skin and underlying necrotic subcutaneous tissue was performed using a 10 blade. After unroofing the area there was a copious amount of foul-smelling cornejo fluid along with pus. There was no bleeding from any of the surfaces. The necrosis extended down through the fascia. Excisional debridement of the fascia was performed using forceps and a curved Coughlin scissor. There is also necrosis of most of the muscle. The necrosis extended down to the bone which was visible. Necrosis of the fascia extended anteriorly and posteriorly medially and laterally. There was no healthy tissue visible. Irrigation of the wound was performed with pulse lavage. The wound was checked for hemostasis which was carefully ensured. The wound measured 17 cm x 10 cm. The wound was then packed with 1 piece of Dakin's moistened Kerlix. This was covered with 4 x 4 gauze, ABD pads, Medipore tape. As the infection was more extensive than anticipated, we will perform more imaging to determine next best steps for debridement. At the end of the case, all sponge, instrument, sharp counts were correct x2. Patient was awoken from anesthesia and taken to PACU in stable condition.
--- NOTE | 2019-09-30 20:20 | Progress Note ---
Subjective Date of service: 09/30/19 Principal diagnosis: Necrotizing Fasciitis left Shoulder Objective - Constitutional Vitals: Vital Signs - 12hr 09/30/19 09/30/19 09/30/19 10:49 15:13 16:34 Temperature 98.1 F 98 F Pulse Rate 112 H 99 H Pulse Rate [ 88 Right Radial] Respiratory 20 20 18 Rate Blood Pressure 99/62 Blood Pressure 116/69 [Right] O2 Sat by Pulse 100 96 Oximetry 09/30/19 09/30/19 09/30/19 18:30 18:35 18:40 Temperature 98.1 F Pulse Rate 98 H 96 H 97 H Pulse Rate [ Right Radial] Respiratory 16 24 21 Rate Blood Pressure 104/58 100/57 109/67 Blood Pressure [Right] O2 Sat by Pulse 100 100 100 Oximetry 09/30/19 09/30/19 09/30/19 18:45 18:50 18:55 Temperature Pulse Rate 97 H 99 H 98 H Pulse Rate [ Right Radial] Respiratory 22 24 24 Rate Blood Pressure 96/65 109/65 102/63 Blood Pressure [Right] O2 Sat by Pulse 100 100 100 Oximetry 09/30/19 09/30/19 09/30/19 19:00 19:15 19:31 Temperature 97.8 F Pulse Rate 96 H 98 H 97 H Pulse Rate [ Right Radial] Respiratory 24 24 24 Rate Blood Pressure 102/63 98/54 96/56 Blood Pressure [Right] O2 Sat by Pulse 100 99 99 Oximetry 09/30/19 09/30/19 19:45 20:01 Temperature Pulse Rate 96 H 95 H Pulse Rate [ Right Radial] Respiratory 25 H 21 Rate Blood Pressure 97/57 95/55 Blood Pressure [Right] O2 Sat by Pulse 98 99 Oximetry - Labs CBC & Chem 7: 09/29/19 20:02 09/30/19 07:45 Labs: Abnormal lab results 09/29/19 09/30/19 09/30/19 Range/Units 20:02 07:45 08:07 Sodium 124 L 129 L (137-145) mmol/L Potassium 3.4 L (3.6-5.0) mmol/L Chloride 87.6 L 95.8 L (98-107) mmol/L BUN 21 H (7-17) mg/dL Creatinine 0.4 L 0.3 L (0.6-1.2) mg/dL Glucose 217 H 199 H (65-100) mg/dL POC Glucose 208 H (70-105) Calcium 6.8 L 6.3 L (8.4-10.2) mg/dL Alkaline Phosphatase 141 H (35-129) units/L Albumin 2.2 L (3.9-5) g/dL 09/30/19 09/30/19 09/30/19 Range/Units 11:28 16:44 18:52 Sodium (137-145) mmol/L Potassium (3.6-5.0) mmol/L Chloride (98-107) mmol/L BUN (7-17) mg/dL Creatinine (0.6-1.2) mg/dL Glucose (65-100) mg/dL POC Glucose 231 H 131 H 107 H (70-105) Calcium (8.4-10.2) mg/dL Alkaline Phosphatase (35-129) units/L Albumin (3.9-5) g/dL
--- NOTE | 2019-09-30 20:24 | Post Anesthesia Evaluation ---
- Post Anesthesia Evaluation Patient Participated: Yes Airway Patent: Yes Stable Respiratory Function: Yes Nausea/Vomiting: No Temp > 96.8F: Yes Pain Manageable: Yes Adequeate Hydration: Yes Block Receding Appropriately: Not Applicable Patient on Ventilator: No Other Comments: Patient transferred to Intermediate Medical Care Unit for obsertion.
[2019-09-30] MEDS: SODIUM CHLORIDE 0.9% 1000 ML 1,000 ML IV SCH (22:21)
[2019-10-01] MEDS: VANCOMYCIN 1,250 MG in SODIUM CHLORIDE 0.9% 250ML 250 ML IV SCH ×2 (03:23→14:20)
[2019-10-01] MEDS: metroNIDAZOLE 500 MG TAB PO SCH ×3 (06:01→21:35)
[2019-10-01] MEDS: CEFEPIME/NS 2 GM/100 ML 2 GM/100 ML BAG IV SCH ×3 (06:01→21:36)
--- NOTE | 2019-10-01 08:42 | Progress Note ---
Assessment and Plan Assessment and plan: 59-year-old female present with a chief complaint of left shoulder and back pain. The patient has a history of metastatic breast CA with known mets to the back and left shoulder per the patient. Patient states she was given pain medication however it is not helping. Patient states she took OxyContin 10 mg but still has pain and gives it a score of 6/10. Patient called her oncologist Dr. Garcia who instructed her to come to the ED. Patient denies fever, nausea/vomiting, cough or shortness of breath. Patient states this is the pain she has had in the past is just not controlled with her current pain medication Left shoulder x-ray: There is a large amount of subcutaneous air in the left axilla and left shoulder region and left supraclavicular location 09/29: Continue IMCU care, Pulmonary consult, continue antibiotics, obtain cxr, continue nebs. Large Left axillary necrotic wound with abscess with subcu air. Necrotizing fasciitis of left shoulder-S/P Wide excisional debridement of narcotizing fasciitis of left shoulder Sepsis Acute Hypoxic Respiratory failure Hyponatremia Hypokalemia Left upper extremity edema Diabetes Mellitus with hyperglycemia Breast cancer Pain secondary to metastatic breast cancer Plan Continue supportive care continue antibiotics Obtain Pulmonary consult Continue IMCU CARE Monitor SODIUM LEVEL Surgical consult. Patient states that she follows at the surgical wound care center. Cultures Adjust insulin therapy for better control considering serious infection. Pain control DVT and GI prophylaxis Monitor electrolytes and replace Discussed with the patient plan of care she verbalized understanding. Wound care consult Dietitian consult for optimization of nutritional status. History Interval history: Patient seen and examined, hypoxia this morning. Hospitalist Physical - Physical exam Narrative exam: VITAL SIGNS: Reviewed. GENERAL: The patient appears normally developed, chronically ill-appearing, vital signs as documented. HEAD: No signs of head trauma. EYES: Pupils are equal. Extraocular motions intact. EARS: Hearing grossly intact. MOUTH: Oropharynx is normal. NECK: No adenopathy, no JVD. CHEST: Chest with diminished breath sounds bilaterally. No wheezes, rales, or rhonchi. CARDIAC: Regular rate and rhythm. S1 and S2, without murmurs, gallops, or rubs. VASCULAR: No Edema. Peripheral pulses normal and equal in all extremities. ABDOMEN: Soft, non tender and non distended. No rebound or guarding, and no masses palpated. Bowel Sounds normal. MUSCULOSKELETAL: Deformation of the left chest wall noted. Dressing, Status post mastectomy. Limited range of motion of left upper extremity with grossly enlarged size greater than 5 times the size of the right upper extremity. Significant pitting edema. NEUROLOGIC EXAM: Alert and oriented x 3 No focal sensory or strength deficits. Speech normal. Follows commands. PSYCHIATRIC: Mood normal. SKIN: Severe malodorous left shoulder extending to the axilla abscess with wound draining purulent secretions. Please see wound documentation - Constitutional Vitals: Temp Pulse Resp BP Pulse Ox 98.6 F 94 H 21 107/54 98 10/01/19 04:00 10/01/19 07:00 10/01/19 07:00 10/01/19 07:00 10/01/19 07:00 General appearance: Present: mild distress HEART Score - HEART Score Age: 45-65 Risk factors: 1-2 risk factors - Critical Actions Critical Actions: 0-3 pts:0.9-1.7%risk of adverse cardiac event.Candidate for discharge Results - Labs CBC & Chem 7: 09/29/19 20:02 09/30/19 07:45 Labs: Laboratory Last Values WBC 20.1 K/mm3 (4.5-11.0) H 09/29/19 20:02 RBC 2.77 M/mm3 (3.65-5.03) L 09/29/19 20:02 Hgb 9.4 gm/dl (10.1-14.3) L 09/29/19 20:02 Hct 27.8 % (30.3-42.9) L 09/29/19 20:02 MCV 100 fl (79-97) H 09/29/19 20:02 MCH 34 pg (28-32) H 09/29/19 20:02 MCHC 34 % (30-34) 09/29/19 20:02 RDW 20.1 % (13.2-15.2) H 09/29/19 20:02 Plt Count 108 K/mm3 (140-440) L 09/29/19 20:02 Lymph % (Auto) 3.7 % (13.4-35.0) L 09/29/19 20:02 Martin % (Auto) 8.8 % (0.0-7.3) H 09/29/19 20:02 Eos % (Auto) 0.1 % (0.0-4.3) 09/29/19 20:02 Baso % (Auto) 0.3 % (0.0-1.8) 09/29/19 20:02 Lymph # 0.7 K/mm3 (1.2-5.4) L 09/29/19 20:02 Martin # 1.8 K/mm3 (0.0-0.8) H 09/29/19 20:02 Eos # 0.0 K/mm3 (0.0-0.4) 09/29/19 20:02 Baso # 0.1 K/mm3 (0.0-0.1) 09/29/19 20:02 Seg Neutrophils % 87.1 % (40.0-70.0) H 09/29/19 20:02 Seg Neutrophils # 17.5 K/mm3 (1.8-7.7) H 09/29/19 20:02 PT 13.8 Sec. (12.2-14.9) 09/29/19 20:02 INR 1.04 (0.87-1.13) 09/29/19 20:02 Sodium 129 mmol/L (137-145) L 09/30/19 07:45 Potassium 3.4 mmol/L (3.6-5.0) L 09/30/19 07:45 Chloride 95.8 mmol/L (98-107) L 09/30/19 07:45 Carbon Dioxide 22 mmol/L (22-30) 09/30/19 07:45 Anion Gap 15 mmol/L 09/30/19 07:45 BUN 13 mg/dL (7-17) 09/30/19 07:45 Creatinine 0.3 mg/dL (0.6-1.2) L 09/30/19 07:45 Estimated GFR > 60 ml/min 09/30/19 07:45 BUN/Creatinine Ratio 43 % 09/30/19 07:45 Glucose 199 mg/dL (65-100) H 09/30/19 07:45 POC Glucose 179 (70-105) H 10/01/19 07:26 Calcium 6.3 mg/dL (8.4-10.2) L 09/30/19 07:45 Magnesium 2.10 mg/dL (1.7-2.3) 09/29/19 20:02 Total Bilirubin 0.70 mg/dL (0.1-1.2) 09/29/19 20:02 AST 15 units/L (5-40) 09/29/19 20:02 ALT 8 units/L (7-56) 09/29/19 20:02 Alkaline Phosphatase 141 units/L (35-129) H 09/29/19 20:02 Total Protein 6.5 g/dL (6.3-8.2) 09/29/19 20:02 Albumin 2.2 g/dL (3.9-5) L 09/29/19 20:02 Albumin/Globulin Ratio 0.5 % 09/29/19 20:02 Microbiology: Microbiology 09/29/19 21:35 Peripheral/Venous Blood Culture - Preliminary NO GROWTH AFTER 24 HOURS 09/29/19 21:50 Peripheral/Venous Blood Culture - Preliminary NO GROWTH AFTER 24 HOURS Reid/IV: Voiding Method External Female Catheter IV Catheter Type [Right Infusaport Proximal Port Chest] Active Medications - Current Medications Current Medications: Generic Name Dose Route Start Last Admin Trade Name Freq PRN Reason Stop Dose Admin Acetaminophen 650 mg 09/30/19 00:36 Tylenol PO Q4H PRN Fever >101 Dextrose 50 ml 09/30/19 00:37 D50w (25gm) Syringe IV Q30MIN PRN Hypoglycemia Protocol Duloxetine HCl 60 mg 09/30/19 10:00 09/30/19 10:29 Cymbalta PO 60 mg QDAY JUAN MANUEL Administration Hydromorphone HCl 1 mg 09/30/19 08:42 Dilaudid IV Q3H PRN Pain , Severe (7-10) Vancomycin HCl 1,250 mg/ 275 mls @ 166.667 mls/hr 09/30/19 14:00 10/01/19 03:23 Sodium Chloride IV 166.667 mls/hr Q12H JUAN MANUEL Administration Sodium Chloride 1,000 mls @ 125 mls/hr 09/30/19 06:45 09/30/19 22:21 Nacl 0.9% 1000 Ml IV 125 mls/hr DIRECT JUAN MANUEL Administration Cefepime HCl 2 gm in 100 mls @ 200 mls/hr 09/30/19 14:00 10/01/19 06:01 Cefepime/Ns 2 Gm/100 Ml IV 200 mls/hr Q8HR JUAN MANUEL Administration Protocol Insulin Human Regular 0 units 09/30/19 07:30 09/30/19 13:16 Humulin R SUB-Q 2 units AC JUAN MANUEL Administration Protocol Insulin Human Regular 0 units 09/30/19 22:00 09/30/19 22:03 Humulin R SUB-Q Not Given QHS JUAN MANUEL Protocol Metronidazole 500 mg 09/30/19 14:00 10/01/19 06:01 Flagyl PO 500 mg Q8HR JUAN MANUEL Administration Protocol Ondansetron HCl 4 mg 09/30/19 00:35 Zofran IV Q8H PRN Nausea And Vomiting Oxycodone/Acetaminophen 2 tab 09/30/19 08:44 Percocet 5/325 PO Q6H PRN Pain, Moderate (4-6) Pregabalin 75 mg 09/30/19 10:00 09/30/19 10:29 Pregabalin PO 75 mg QDAY JUAN MANUEL Administration
[2019-10-01] MEDS: INSULIN REGULAR, HUMAN 100 UNITS/1 ML SUB-Q SCH ×5 (09:27→21:38)
--- NOTE | 2019-10-01 09:39 | XRay Report ---
CHEST 1 VIEW INDICATION / CLINICAL INFORMATION: Hypoxia. COMPARISON: 09/29/2019 FINDINGS: SUPPORT DEVICES: Port-A-Cath is unchanged HEART / MEDIASTINUM: Unchanged LUNGS / PLEURA: There is airspace opacity noted in the left mid and lower lung zone which is develope d in the interval.. No pneumothorax. ADDITIONAL FINDINGS: Soft tissue gas in the left shoulder region is noted. Density in this soft tissu e somewhat increased. There appears to been some resection of tissue with some packing material at th e site. IMPRESSION: 1. There is been development of some airspace opacity in the left mid and lower lung zone. Signer Name: Remi Trejo MD Signed: 10/01/2019 9:34 AM Workstation Name: [id number]
--- NOTE | 2019-10-01 11:39 | Progress Note ---
Assessment and Plan 59 yo F s/p Wide excisional debridement of necrotizing fasciitis of left shoulder, POD 1 Plan: 1. BID dressing changes to left shoulder with dakins packing - orders written 2. prn pain control 3. follow up OR cultures 4. continue abx per ID 5. CT L shoulder pending Pt with extensive necrosis of skin, subq, muscle, fascia of left shoulder. Extent of necrosis difficult to determine without additional imaging. If necrosis extends into bone/joint, may need to refer to tertiary care center for further aggressive debridement if patient agreeable. Recs pending CT results. Thank you, please call with questions. Subjective Date of service: 10/01/19 Narrative: Pt seen and examined. No acute complaints. States the left shoulder doesn't hurt anymore. Afebrile. Objective Vital Signs - 12hr 09/30/19 09/30/19 10/01/19 23:40 23:50 00:00 Temperature 98.0 F Pulse Rate 99 H 99 H 98 H Respiratory 19 19 20 Rate Blood Pressure 101/44 101/44 97/63 O2 Sat by Pulse 97 99 82 L Oximetry 10/01/19 10/01/19 10/01/19 00:10 00:20 00:30 Temperature Pulse Rate 97 H 96 H 86 Respiratory 21 19 18 Rate Blood Pressure 96/50 96/50 96/54 O2 Sat by Pulse 98 97 96 Oximetry 10/01/19 10/01/19 10/01/19 00:40 00:50 01:00 Temperature Pulse Rate 100 H 98 H 100 H Respiratory 19 20 21 Rate Blood Pressure 97/63 97/63 91/53 O2 Sat by Pulse 97 97 94 Oximetry 10/01/19 10/01/19 10/01/19 01:10 01:20 01:30 Temperature Pulse Rate 99 H 97 H 99 H Respiratory 22 20 18 Rate Blood Pressure 96/54 96/54 91/56 O2 Sat by Pulse 92 92 93 Oximetry 10/01/19 10/01/19 10/01/19 01:40 01:50 02:00 Temperature Pulse Rate 102 H 100 H 101 H Respiratory 21 19 18 Rate Blood Pressure 91/56 91/56 99/52 O2 Sat by Pulse 92 92 92 Oximetry 10/01/19 10/01/19 10/01/19 02:10 02:20 02:30 Temperature Pulse Rate 92 H 98 H 95 H Respiratory 18 17 19 Rate Blood Pressure 91/56 91/56 96/57 O2 Sat by Pulse 92 95 91 Oximetry 10/01/19 10/01/19 10/01/19 02:40 02:50 03:00 Temperature Pulse Rate 96 H 94 H 91 H Respiratory 20 19 20 Rate Blood Pressure 96/57 96/57 109/61 O2 Sat by Pulse 91 91 93 Oximetry 10/01/19 10/01/19 10/01/19 03:10 03:20 03:30 Temperature Pulse Rate 96 H 95 H 95 H Respiratory 19 19 21 Rate Blood Pressure 109/61 109/61 101/62 O2 Sat by Pulse 88 94 91 Oximetry 10/01/19 10/01/19 10/01/19 03:40 03:50 04:00 Temperature 98.6 F Pulse Rate 95 H 93 H 92 H Respiratory 19 19 19 Rate Blood Pressure 101/62 101/62 111/57 O2 Sat by Pulse 88 90 94 Oximetry 10/01/19 10/01/19 10/01/19 04:10 04:20 04:30 Temperature Pulse Rate 95 H 95 H 89 Respiratory 16 20 18 Rate Blood Pressure 111/57 111/57 103/59 O2 Sat by Pulse 99 99 100 Oximetry 10/01/19 10/01/19 10/01/19 04:40 04:50 05:00 Temperature Pulse Rate 89 95 H 93 H Respiratory 19 18 20 Rate Blood Pressure 103/59 103/59 104/51 O2 Sat by Pulse 97 100 96 Oximetry 10/01/19 10/01/19 10/01/19 05:10 05:20 05:30 Temperature Pulse Rate 96 H 91 H 91 H Respiratory 19 24 19 Rate Blood Pressure 104/51 104/51 95/60 O2 Sat by Pulse 97 99 98 Oximetry 10/01/19 10/01/19 10/01/19 05:40 05:50 06:00 Temperature Pulse Rate 92 H 94 H 96 H Respiratory 19 17 19 Rate Blood Pressure 95/60 104/51 95/60 O2 Sat by Pulse 100 97 97 Oximetry 10/01/19 10/01/19 10/01/19 06:10 06:20 06:30 Temperature Pulse Rate 93 H 96 H 92 H Respiratory 18 20 18 Rate Blood Pressure 99/59 95/60 106/60 O2 Sat by Pulse 98 99 99 Oximetry 10/01/19 10/01/19 10/01/19 06:40 06:50 07:00 Temperature Pulse Rate 94 H 93 H 94 H Respiratory 19 20 21 Rate Blood Pressure 106/60 106/60 107/54 O2 Sat by Pulse 95 97 98 Oximetry 10/01/19 10/01/19 10/01/19 07:10 07:20 07:30 Temperature Pulse Rate 96 H 90 94 H Respiratory 20 19 26 H Rate Blood Pressure 107/54 107/54 97/58 O2 Sat by Pulse 98 100 96 Oximetry 10/01/19 10/01/19 10/01/19 07:40 07:50 08:00 Temperature 98.7 F Pulse Rate 95 H 93 H 110 H Respiratory 19 19 20 Rate Blood Pressure 97/58 97/58 102/63 O2 Sat by Pulse 97 97 100 Oximetry 10/01/19 10/01/19 10/01/19 08:10 08:20 08:30 Temperature Pulse Rate 94 H 92 H 103 H Respiratory 20 25 H 24 Rate Blood Pressure 102/63 102/63 113/71 O2 Sat by Pulse 93 93 80 L Oximetry 10/01/19 10/01/19 10/01/19 08:40 08:50 09:00 Temperature Pulse Rate 100 H 93 H 95 H Respiratory 17 23 21 Rate Blood Pressure 113/71 113/71 120/68 O2 Sat by Pulse 63 L 88 88 Oximetry 10/01/19 10/01/19 10/01/19 09:10 09:20 09:30 Temperature Pulse Rate 91 H 95 H 92 H Respiratory 21 18 24 Rate Blood Pressure 120/68 120/68 109/65 O2 Sat by Pulse 99 83 L 85 Oximetry 10/01/19 09:40 Temperature Pulse Rate 95 H Respiratory 21 Rate Blood Pressure 109/65 O2 Sat by Pulse Oximetry - General physical appearance Narrative Exam: Gen; AAOx3. NAD CV: S1, S2+ Resp: even and unlabored Ext; L shoulder dressing and axillary dressing removed. Wound in axilla is with thick slough adherent to surface. This was packed with dakins moistened gauze and covered with ABD pads. Left shoulder wound packing (1 piece of kerlex) removed. The wound bed is necrotic with slough. Visible muscle is nonviable. There is still malodorous drainage. Packed with one piece of dakins moistened kerlex and covered with dry gauze, ABD pads and coversite dressings. - Labs 09/29/19 20:02 09/30/19 07:45
--- NOTE | 2019-10-01 12:21 | Cat Scan Report ---
CT upper extrem LT w con INDICATION: left shoulder necrotizing infection. TECHNIQUE: All CT scans at this location are performed using the following dose modulation technique: Automated exposure control. Helical slices were obtained through the left shoulder and upper left arm. Coronal and sagittal reformatted images were obtained. COMPARISON: PET/CT scan dated 08/10/2019 FINDINGS: There is extensive soft tissue gas noted in the left shoulder region and upper arm. There is gas with in the musculature around the shoulder involving all muscle groups. There is air in the scapula and i n the proximal humerus Appears that some of the soft tissue in the left upper shoulder area has been debrided there is a rel atively large packed wound in this location. There is air in the musculature around the scapula exten ding into the upper back. There is subcutaneous edema in the left shoulder and arm to the level of th e elbow. There is some fluid noted in the subcutaneous soft tissue in the posterior lateral chest wall just in ferior to the tip of the clavicle there is a small amount soft tissue gas within this fluid. This is at the level of the lateral aspect of the sixth and seventh rib on the left. IMPRESSION: There is a large packed wound in the left shoulder area. There is extensive soft tissue gas within th e muscle groups around the shoulder and scapula as well has air within the scapula and humerus indica ting spread of infection into the bones. There is also air in the distal clavicle. There is air in th e upper arm anteriorly predominantly in the subcutaneous fat. There is subcutaneous edema in the arm and shoulder. There is some fluid in the subcutaneous fat in the left posterior lateral chest wall with a small marshall unt of soft tissue gas. This appears to communicate to the skin surface at several sites. Signer Name: Remi Trejo MD Signed: 10/01/2019 12:16 PM Workstation Name: [id number]
[2019-10-01] MEDS: SODIUM CHLORIDE 0.9% 1000 ML 1,000 ML IV SCH (13:39)
[2019-10-01] MEDS: PREGABALIN 75 MG CAP PO SCH (13:41)
[2019-10-01] MEDS: DULoxetine 30 MG CAP PO SCH (13:41)
[2019-10-01 16:29] LABS: Hematocrit 26.9 % (30.3-42.9); Hemoglobin 9.2 gm/dl (10.1-14.3); Mean Corpuscular HGB Conc 34 % (30-34); Mean Corpuscular Volume 99 fl (79-97); Red Blood Count 2.72 M/mm3 (3.65-5.03); Red Cell Distribution Width 19.7 % (13.2-15.2)
[2019-10-01 16:31] LABS: Platelet Count 78 K/mm3 (140-440)
[2019-10-01] MEDS: oxyCODONE /ACETAMINOPHEN 5-325MG TAB PO PRN (22:16)
[2019-10-02] MEDS: SODIUM CHLORIDE 0.9% 1000 ML 1,000 ML IV SCH ×2 (00:03→13:38)
[2019-10-02] MEDS: VANCOMYCIN 1,250 MG in SODIUM CHLORIDE 0.9% 250ML 250 ML IV SCH ×2 (01:52→16:05)
[2019-10-02 04:19] LABS: Hematocrit 27.6 % (30.3-42.9); Hemoglobin 9.1 gm/dl (10.1-14.3); Mean Corpuscular HGB Conc 33 % (30-34); Mean Corpuscular Volume 101 fl (79-97); Red Blood Count 2.73 M/mm3 (3.65-5.03); Red Cell Distribution Width 19.7 % (13.2-15.2)
[2019-10-02 04:23] LABS: Platelet Count 69 K/mm3 (140-440)
[2019-10-02 04:46] LABS: Blood Urea Nitrogen 15 mg/dL (7-17); Hemolysis Index 13
[2019-10-02 05:22] LABS: BUN/Creatinine Ratio 30
[2019-10-02 05:24] LABS: Calcium 5.8 mg/dL (8.4-10.2)
[2019-10-02] MEDS: metroNIDAZOLE 500 MG TAB PO SCH ×3 (06:48→23:20)
[2019-10-02] MEDS: CEFEPIME/NS 2 GM/100 ML 2 GM/100 ML BAG IV SCH ×3 (06:49→22:50)
[2019-10-02] MEDS ORDERED: CALCIUM GLUCONATE 2,000 MG in SODIUM CHLORIDE 0.9% 100 ML IV ONE (07:30)
--- NOTE | 2019-10-02 08:21 | Progress Note ---
Assessment and Plan Assessment and plan: 59-year-old female present with a chief complaint of left shoulder and back pain. The patient has a history of metastatic breast CA with known mets to the back and left shoulder per the patient. Patient states she was given pain medication however it is not helping. Patient states she took OxyContin 10 mg but still has pain and gives it a score of 6/10. Patient called her oncologist Dr. Garcia who instructed her to come to the ED. Patient denies fever, nausea/vomiting, cough or shortness of breath. Patient states this is the pain she has had in the past is just not controlled with her current pain medication Left shoulder x-ray: There is a large amount of subcutaneous air in the left axilla and left shoulder region and left supraclavicular location CT Upper extremity: IMPRESSION: There is a large packed wound in the left shoulder area. There is extensive soft tissue gas within the muscle groups around the shoulder and scapula as well has air within the scapula and humerus indicating spread of infection into the bones. There is also air in the distal clavicle. There is air in the upper arm anteriorly predominantly in the subcuta neous fat. There is subcutaneous edema in the arm and shoulder. There is some fluid in the subcutaneous fat in the left posterior lateral chest wall with a small amount of soft tissue gas. This appears to communicate to the skin surface at several sites. 82: Continue IMCU care, Pulmonary consult, continue antibiotics, obtain cxr, continue nebs. 3: Patient underwent debridement 09/29 and was managed in the ICU for 36 hrs due to Hypotension and Hypoxic Respiratory failure, she improved today with antibiotics but imaging studies obtain is concerning for extensive wound. Will discuss with surgeon if transfer is warranted. I Understand patient has had conversation about pallative care in the past, will proceed with reconsult for information with hospice and pallative team while awaiting call back from the oncologist Dr Garcia Advance care planning discussion 30 mins Large Left axillary necrotic wound with abscess with subcu air. Necrotizing fasciitis of left shoulder-S/P Wide excisional debridement of narcotizing fasciitis of left shoulder Sepsis Acute Hypoxic Respiratory failure Hyponatremia Hypokalemia Left upper extremity edema Diabetes Mellitus with hyperglycemia Breast cancer Pain secondary to metastatic breast cancer Plan Continue supportive care continue antibiotics Obtain Pulmonary consult Continue IMCU CARE Monitor SODIUM LEVEL Surgical consult. Patient states that she follows at the surgical wound care center. Cultures Adjust insulin therapy for better control considering serious infection. Pain control DVT and GI prophylaxis Monitor electrolytes and replace Discussed with the patient plan of care she verbalized understanding. Wound care consult Dietitian consult for optimization of nutritional status. History Interval history: Patient seen and examined, she is clinically improving today, I have discussed hospice and palliative care with him Hospitalist Physical - Physical exam Narrative exam: VITAL SIGNS: Reviewed. GENERAL: The patient appears normally developed, chronically ill-appearing, vital signs as documented. HEAD: No signs of head trauma. EYES: Pupils are equal. Extraocular motions intact. EARS: Hearing grossly intact. MOUTH: Oropharynx is normal. NECK: No adenopathy, no JVD. CHEST: Chest with diminished breath sounds bilaterally. No wheezes, rales, or rhonchi. CARDIAC: Regular rate and rhythm. S1 and S2, without murmurs, gallops, or rubs. VASCULAR: No Edema. Peripheral pulses normal and equal in all extremities. ABDOMEN: Soft, non tender and non distended. No rebound or guarding, and no masses palpated. Bowel Sounds normal. MUSCULOSKELETAL: Deformation of the left chest wall noted. Dressing, Status post mastectomy. Limited range of motion of left upper extremity with grossly enlarged size greater than 5 times the size of the right upper extremity. S ignificant pitting edema. NEUROLOGIC EXAM: Alert and oriented x 3 No focal sensory or strength d eficits. Speech normal. Follows commands. PSYCHIATRIC: Mood normal. SKIN: Severe malodorous left shoulder extending to the axilla abscess with wound draining purulent secretions. Now cleaned out and dressing inplace Please see wound documentation - Constitutional Vitals: Temp Pulse Resp BP Pulse Ox 98.8 F 86 19 102/57 100 10/02/19 04:00 10/02/19 07:40 10/02/19 07:00 10/02/19 07:00 10/02/19 07:00 General appearance: Present: mild distress HEART Score - HEART Score Age: 45-65 Risk factors: 1-2 risk factors - Critical Actions Critical Actions: 0-3 pts:0.9-1.7%risk of adverse cardiac event.Candidate for discharge Results - Labs CBC & Chem 7: 10/02/19 03:54 10/02/19 03:54 Labs: Laboratory Last Values WBC 15.6 K/mm3 (4.5-11.0) H 10/02/19 03:54 RBC 2.73 M/mm3 (3.65-5.03) L 10/02/19 03:54 Hgb 9.1 gm/dl (10.1-14.3) L 10/02/19 03:54 Hct 27.6 % (30.3-42.9) L 10/02/19 03:54 MCV 101 fl (79-97) H 10/02/19 03:54 MCH 33 pg (28-32) H 10/02/19 03:54 MCHC 33 % (30-34) 10/02/19 03:54 RDW 19.7 % (13.2-15.2) H 10/02/19 03:54 Plt Count 69 K/mm3 (140-440) L 10/02/19 03:54 Lymph % (Auto) 3.7 % (13.4-35.0) L 09/29/19 20:02 [place] % (Auto) 8.8 % (0.0-7.3) H 09/29/19 20:02 Eos % (Auto) 0.1 % (0.0-4.3) 09/29/19 20:02 Baso % (Auto) 0.3 % (0.0-1.8) 09/29/19 20:02 Lymph # 0.7 K/mm3 (1.2-5.4) L 09/29/19 20:02 [place] # 1.8 K/mm3 (0.0-0.8) H 09/29/19 20:02 Eos # 0.0 K/mm3 (0.0-0.4) 09/29/19 20:02 Baso # 0.1 K/mm3 (0.0-0.1) 09/29/19 20:02 Seg Neutrophils % 87.1 % (40.0-70.0) H 09/29/19 20:02 Seg Neutrophils # 17.5 K/mm3 (1.8-7.7) H 09/29/19 20:02 PT 13.8 Sec. (12.2-14.9) 09/29/19 20:02 INR 1.04 (0.87-1.13) 09/29/19 20:02 Sodium 133 mmol/L (137-145) L 10/02/19 03:54 Potassium 3.4 mmol/L (3.6-5.0) L 10/02/19 03:54 Chloride 100.0 mmol/L (98-107) 10/02/19 03:54 Carbon Dioxide 22 mmol/L (22-30) 10/02/19 03:54 Anion Gap 14 mmol/L 10/02/19 03:54 BUN 15 mg/dL (7-17) 10/02/19 03:54 Creatinine 0.5 mg/dL (0.6-1.2) L D 10/02/19 03:54 Estimated GFR > 60 ml/min 10/02/19 03:54 BUN/Creatinine Ratio 30 % 10/02/19 03:54 Glucose 155 mg/dL (65-100) H 10/02/19 03:54 POC Glucose 237 (70-105) H 10/01/19 21:44 Calcium 5.8 mg/dL (8.4-10.2) L* 10/02/19 03:54 Magnesium 2.10 mg/dL (1.7-2.3) 09/29/19 20:02 Total Bilirubin 0.70 mg/dL (0.1-1.2) 09/29/19 20:02 AST 15 units/L (5-40) 09/29/19 20:02 ALT 8 units/L (7-56) 09/29/19 20:02 Alkaline Phosphatase 141 units/L (35-129) H 09/29/19 20:02 Total Protein 6.5 g/dL (6.3-8.2) 09/29/19 20:02 Albumin 2.2 g/dL (3.9-5) L 09/29/19 20:02 Albumin/Globulin Ratio 0.5 % 09/29/19 20:02 Nasal Screen MRSA (PCR) Negative (Negative) 10/01/19 06:20 Microbiology: Microbiology 09/29/19 21:35 Peripheral/Venous Blood Culture - Preliminary NO GROWTH AFTER 48 HOURS 09/29/19 21:50 Peripheral/Venous Blood Culture - Preliminary NO GROWTH AFTER 48 HOURS Reid/IV: Voiding Method External Female Catheter IV Catheter Type [Right Infusaport Proximal Port Chest] Active Medications - Current Medications Current Medications: Generic Name Dose Route Start Last Admin Trade Name Freq PRN Reason Stop Dose Admin Acetaminophen 650 mg 09/30/19 00:36 Tylenol PO Q4H PRN Fever >101 Dextrose 50 ml 09/30/19 00:37 D50w (25gm) Syringe IV Q30MIN PRN Hypoglycemia Protocol Duloxetine HCl 60 mg 09/30/19 10:00 10/01/19 13:41 Cymbalta PO 60 mg QDAY JUAN MANUEL Administration Hydromorphone HCl 1 mg 09/30/19 08:42 Dilaudid IV Q3H PRN Pain , Severe (7-10) Vancomycin HCl 1,250 mg/ 275 mls @ 166.667 mls/hr 09/30/19 14:00 10/02/19 01:52 Sodium Chloride IV 166.667 mls/hr Q12H JUAN MANUEL Administration Sodium Chloride 1,000 mls @ 125 mls/hr 09/30/19 06:45 10/02/19 00:03 Nacl 0.9% 1000 Ml IV 125 mls/hr DIRECT JUAN MANUEL Administration Cefepime HCl 2 gm in 100 mls @ 200 mls/hr 09/30/19 14:00 10/02/19 06:49 Cefepime/Ns 2 Gm/100 Ml IV 200 mls/hr Q8HR JUAN MANUEL Administration Protocol Potassium Chloride 10 meq in 100 mls @ 100 mls/hr 10/02/19 09:00 Kcl 10meq/100ml IV 10/02/19 12:59 Q1H JUAN MANUEL Magnesium Sulfate 1 gm/ Sodium 52 mls @ 52 mls/hr 10/02/19 09:00 Chloride IV 10/02/19 09:59 ONCE ONE Insulin Human Regular 0 units 10/02/19 11:30 Humulin R SUB-Q ACHS JUAN MANUEL Protocol Metronidazole 500 mg 09/30/19 14:00 10/02/19 06:48 Flagyl PO 500 mg Q8HR JUAN MANUEL Administration Protocol Ondansetron HCl 4 mg 09/30/19 00:35 Zofran IV Q8H PRN Nausea And Vomiting Oxycodone/Acetaminophen 2 tab 09/30/19 08:44 10/01/19 22:16 Percocet 5/325 PO 2 tab Q6H PRN Administration Pain, Moderate (4-6) Pregabalin 75 mg 09/30/19 10:00 10/01/19 13:41 Pregabalin PO 75 mg QDAY JUAN MANUEL Administration Nutrition/Malnutrition Assess - Dietary Evaluation Nutrition/Malnutrition Findings: Nutrition Notes Start: 10/01/19 11:38 Freq: Status: Active Protocol: Document 10/01/19 11:38 LM (Rec: 10/01/19 11:47 LM [id number]) Nutrition Notes Need for Assessment generated from: MD Order Initial or Follow up Assessment Current Diagnosis Diabetes,Hypertension Other Pertinent Diagnosis Necrotizing fasciitis of L shoulder, hx breast ca Current Diet Consistent CHO Labs/Tests POC glu 179 Pertinent Medications Reviewed Height 5 ft 2 in Weight 77.111 kg Usual Body Weight 81.81 kg [place] Body Weight (kg) 50.00 BMI 31.1 Weight change and time frame 6% wt loss in 2 weeks Weight Status Obese Subjective/Other Information MD consult for ONS. pt said she ate breakfast but could not recall how much. Pt stated she was eating well at home but has lost 5-10lb in 2 weeks .pt would like ONS. Burn Absent Trauma Absent GI Symptoms None Interpretation of Weight Loss (severe) >2% in 1 week Fluid Accumulation Mild (non-severe) Reduced Network Lead Strength Measurably Reduced (severe) #2 Nutrition Diagnosis Increased nutrient needs ( specify in comment below) Comments: protein Etiology wound healing As Evidenced by Signs and Symptoms Necrotizing fasciitis of L shoulder #1 Nutrition Diagnosis Malnutrition Etiology chronic illness As Evidenced by Signs and Symptoms Pt with 6% wt loss in 2 weeks, edema, and weak nut former strength Is patient on ventilator? No Is Patient Ambulatory and/or Out of Bed No REE-([facility]-confined to bed) 1575.780 Kcal/Kg value to use for calculation 17 Approximate Energy Requirements Using 1311 kcal/Kg Calculation Used for Recommendations Kcal/kg Additional Notes Protein: 80-96g (1.25-1.5g/kg using AdjBW of 64kg) Fluid: 1ml/kcal Nutrition Intervention Change Diet Order: continue Add Supplement/Snack (indicate name/kcal Ensure High chocolate protein /protein ) BID Provides kCal: 320 Provides Protein (gm) 32 Goal #1 Meet at least 75% of energy and protein needs Goal #2 wound healing Anticipated Discharge Needs: cardiac/consistent CHO Follow-Up By: 10/03/19 Additional Comments F/U for PO/ONS intakes
[2019-10-02] MEDS: INSULIN REGULAR, HUMAN 100 UNITS/1 ML SUB-Q SCH (08:33)
[2019-10-02] MEDS: POTASSIUM CHLORIDE 10 MEQ 10 MEQ/100 ML BAG IV SCH ×4 (08:40→12:31)
[2019-10-02] MEDS: PREGABALIN 75 MG CAP PO SCH (09:00)
[2019-10-02] MEDS: DULoxetine 30 MG CAP PO SCH (09:00)
[2019-10-02] MEDS ORDERED: MAGNESIUM SULFATE 1 GM in SODIUM CHLORIDE 0.9% 50 ML IV ONE (09:00)
--- NOTE | 2019-10-02 09:05 | Progress Note ---
Assessment and Plan Cultures: Blood culture 09/29/2019 no growth today MRSA negative A/P: 59-year-old female past medical history diabetes, hypertension, metastatic breast cancer admitted with large necrotic wound. #Left shoulder necrotizing fascitis with abscess and presumed osteomyelitis: CT shows extensive subcutaneous gas in muscles of left shoulder and scapular area with air within the scapula and humural bone. S/p Wide excisional debridement of necrotizing fasciitis of left shoulder on 09/30/2019. Findings: Extensive necrotizing fasciitis of the left superior and posterior shoulder. Necrotic skin and subcutaneous tissue, muscle and fascia extending to the bone. Bone visible. Copious amount of purulent and grayish fluid #Diabetes: tight glycemic control for best outcomes. #Breast cancer: Not neutropenic. Wound likely secondary to cancer versus treatment. Recs: -stop vancomycin - MRSA PCR neg, blood cx neg -Continue cefepime and metronidazole for now -Obtain wound swab - pending -patient wants pallietive care MD [facility] ([facility]) Office [phone] Subjective Date of service: 10/02/19 Principal diagnosis: Necrotizing Fasciitis left Shoulder Interval history: No complaints no fever Objective - Exam Narrative Exam: General: alert in NAD HEENT: BLANCA, clear OP CV: RRR Resp: CTA bobby MS: Left shoulder with surgical dressing and axillary dressing wound bec necrotic +malodorous drainage Neuro: alert non focal - Constitutional Vitals: Vital Signs Temp Pulse Resp BP Pulse Ox 98.3 F 84 18 104/57 100 10/02/19 08:00 10/02/19 09:00 10/02/19 09:00 10/02/19 09:00 10/02/19 09:00 Temperature -Last 24 Hours Temperature 98.3 F Temperature 98.8 F Temperature 97.3 F Temperature 97.0 F Temperature 97.9 F Temperature 97.7 F - Labs CBC & Chem 7: 10/02/19 03:54 10/02/19 03:54 Labs: Abnormal lab results 10/01/19 10/01/19 10/01/19 Range/Units 11:56 13:40 17:57 WBC 18.0 H (4.5-11.0) K/mm3 RBC 2.72 L (3.65-5.03) M/mm3 Hgb 9.2 L (10.1-14.3) gm/dl Hct 26.9 L (30.3-42.9) % MCV 99 H (79-97) fl MCH 34 H (28-32) pg RDW 19.7 H (13.2-15.2) % Plt Count 78 L (140-440) K/mm3 Sodium (137-145) mmol/L Potassium (3.6-5.0) mmol/L Creatinine (0.6-1.2) mg/dL Glucose (65-100) mg/dL POC Glucose 287 H 288 H (70-105) Calcium (8.4-10.2) mg/dL 10/01/19 10/02/19 10/02/19 Range/Units 21:44 03:54 03:54 WBC 15.6 H (4.5-11.0) K/mm3 RBC 2.73 L (3.65-5.03) M/mm3 Hgb 9.1 L (10.1-14.3) gm/dl Hct 27.6 L (30.3-42.9) % MCV 101 H (79-97) fl MCH 33 H (28-32) pg RDW 19.7 H (13.2-15.2) % Plt Count 69 L (140-440) K/mm3 Sodium 133 L (137-145) mmol/L Potassium 3.4 L (3.6-5.0) mmol/L Creatinine 0.5 L D (0.6-1.2) mg/dL Glucose 155 H (65-100) mg/dL POC Glucose 237 H (70-105) Calcium 5.8 L* (8.4-10.2) mg/dL
[2019-10-02] MEDS ORDERED: INSULIN REGULAR, HUMAN 100 UNITS/1 ML SUB-Q SCH (11:30)
--- NOTE | 2019-10-02 12:51 | Progress Note ---
Assessment and Plan 59 yo F s/p Wide excisional debridement of necrotizing fasciitis of left shoulder, POD 2 Ct l shoulder - " there is a large patch wound in the left shoulder area. There is extensive soft tissue gas within the muscle groups around the shoulder and scapula as well as air within the scapula and humerus indicating spread of infection into the bones. There is also air in the distal clavicle. There is air in the upper arm anteriorly predominantly in the subcutaneous fat. There is subcutaneous edema in the arm and shoulder. There is some fluid in the subcutaneous fat in the left posterior lateral chest wall with a small amount of soft tissue gas. This appears to communicate to the skin surface at several sites." Plan: 1. BID dressing changes to left shoulder with dakins packing - orders written 2. prn pain control 3. follow up OR cultures 4. continue abx per ID 5. Patient with extensive necrotizing infection of the left shoulder, posterior lateral chest wall which extends into the bone. In addition to this she already has a chronic, nonhealing wound in her left axilla despite aggressive wound care, and she was placed on palliative care for this wound. Unfortunately, even if aggressive debridement of the muscle and bone was pursued for the left shoulder necrotizing fasciitis, it is unlikely that this would heal. If the patient is agreeable, recommend hospice. If the patient is wanting to pursue aggressive debridement, recommend transfer to to a tertiary care facility. I had a discussion with the patient regarding her CT scan results. I explained to her that the infection is extensive and it involves bone. Part of this may be related to her metastatic cancer along with the infection. I explained to he r that if she wanted to pursue aggressive debridement, we would need to refer her to a tertiary care facility. Alternatively, we could continue with the topical dressings which would be considered palliative care. All questions were answered. The patient does not want to pursue aggressive therapy and was agreeable to palliative treatment. I called the patient's mother, Germania Wheeler at the telephone number listed at the patient's request. Ms. Wheeler was not available. I will try calling again tomorrow. Thank you, please call with questions. Subjective Date of service: 10/02/19 Narrative: Patient seen in follow-up. No acute complaints. Afebrile Objective Vital Signs - 12hr 10/02/19 10/02/19 10/02/19 01:00 01:11 02:31 Temperature Pulse Rate 86 85 84 Respiratory 20 Rate Blood Pressure 116/63 O2 Sat by Pulse 100 Oximetry 10/02/19 10/02/19 10/02/19 03:00 04:00 05:00 Temperature 98.8 F Pulse Rate 85 87 86 Respiratory 15 17 17 Rate Blood Pressure 92/57 99/59 89/54 O2 Sat by Pulse 100 100 100 Oximetry 10/02/19 10/02/19 10/02/19 06:00 07:00 07:40 Temperature Pulse Rate 84 85 86 Respiratory 28 H 19 Rate Blood Pressure 93/57 102/57 O2 Sat by Pulse 100 Oximetry 10/02/19 10/02/19 10/02/19 08:00 09:00 09:51 Temperature 98.3 F Pulse Rate 89 84 Respiratory 21 18 Rate Blood Pressure 101/59 104/57 O2 Sat by Pulse 77 L 100 100 Oximetry 10/02/19 10/02/19 10/02/19 10:01 10:21 10:31 Temperature Pulse Rate 89 90 89 Respiratory 19 21 18 Rate Blood Pressure 135/74 135/74 104/57 O2 Sat by Pulse 99 100 100 Oximetry 10/02/19 10/02/19 10:41 11:19 Temperature 97.4 F L Pulse Rate 94 H 86 Respiratory 24 17 Rate Blood Pressure 104/57 102/61 O2 Sat by Pulse 100 100 Oximetry - General physical appearance Narrative Exam: Gen.: Awake, alert, oriented 3. No apparent distress ENT: Trachea midline. No lymphadenopathy. No scleral icterus or conjunctival pallor CV: S1, S2 present Respiratory: No audible wheezes Extremities: Left shoulder dressing with minimal serous drainage. Lymphedema of left arm - Labs 10/02/19 03:54 10/02/19 03:54 Diabetes panel 10/02/19 Range/Units 03:54 Sodium 133 L (137-145) mmol/L Potassium 3.4 L (3.6-5.0) mmol/L Chloride 100.0 (98-107) mmol/L Carbon Dioxide 22 (22-30) mmol/L BUN 15 (7-17) mg/dL Creatinine 0.5 L D (0.6-1.2) mg/dL Glucose 155 H (65-100) mg/dL Calcium 5.8 L* (8.4-10.2) mg/dL Calcium panel 10/02/19 Range/Units 03:54 Calcium 5.8 L* (8.4-10.2) mg/dL Pituitary panel 10/02/19 Range/Units 03:54 Sodium 133 L (137-145) mmol/L Potassium 3.4 L (3.6-5.0) mmol/L Chloride 100.0 (98-107) mmol/L Carbon Dioxide 22 (22-30) mmol/L BUN 15 (7-17) mg/dL Creatinine 0.5 L D (0.6-1.2) mg/dL Glucose 155 H (65-100) mg/dL Calcium 5.8 L* (8.4-10.2) mg/dL Adrenal panel 10/02/19 Range/Units 03:54 Sodium 133 L (137-145) mmol/L Potassium 3.4 L (3.6-5.0) mmol/L Chloride 100.0 (98-107) mmol/L Carbon Dioxide 22 (22-30) mmol/L BUN 15 (7-17) mg/dL Creatinine 0.5 L D (0.6-1.2) mg/dL Glucose 155 H (65-100) mg/dL Calcium 5.8 L* (8.4-10.2) mg/dL
[2019-10-02 15:00] LABS: Blood Urea Nitrogen 13 mg/dL (7-17); Hemolysis Index 7
[2019-10-02 15:06] LABS: BUN/Creatinine Ratio 33
[2019-10-02] MEDS: INSULIN REGULAR SUB-Q SCH ×2 (18:36→23:20)
[2019-10-02] MEDS ORDERED: VANCOMYCIN 1,250 MG in SODIUM CHLORIDE 0.9% 250ML 250 ML IV SCH (22:00)
[2019-10-02] MEDS: SODIUM HYPOCHLORITE, DAKIN'S 1/2 STRENGTH (0.25%) 473 ML TOPICAL SOLN TP SCH (23:20)
[2019-10-03] MEDS: SODIUM CHLORIDE 0.9% 1000 ML 1,000 ML IV SCH ×3 (00:14→14:33)
[2019-10-03 04:34] LABS: Hematocrit 26.5 % (30.3-42.9); Hemoglobin 8.8 gm/dl (10.1-14.3); Mean Corpuscular HGB Conc 33 % (30-34); Mean Corpuscular Volume 99 fl (79-97); Red Blood Count 2.68 M/mm3 (3.65-5.03)
[2019-10-03 04:39] LABS: Platelet Count 89 K/mm3 (140-440)
[2019-10-03 04:55] LABS: Blood Urea Nitrogen 10 mg/dL (7-17); Calcium 6.1 mg/dL (8.4-10.2); Hemolysis Index 7
[2019-10-03 05:08] LABS: BUN/Creatinine Ratio 25
[2019-10-03] MEDS: metroNIDAZOLE 500 MG TAB PO SCH ×3 (05:53→21:48)
[2019-10-03] MEDS: CEFEPIME/NS 2 GM/100 ML 2 GM/100 ML BAG IV SCH ×3 (05:53→21:49)
[2019-10-03] MEDS: oxyCODONE /ACETAMINOPHEN 5-325MG TAB PO PRN ×2 (06:37→12:41)
[2019-10-03] MEDS: INSULIN REGULAR SUB-Q SCH ×4 (08:41→23:11)
[2019-10-03] MEDS: PREGABALIN 75 MG CAP PO SCH (09:34)
[2019-10-03] MEDS: DULoxetine 30 MG CAP PO SCH (09:34)
[2019-10-03] MEDS: SODIUM HYPOCHLORITE, DAKIN'S 1/2 STRENGTH (0.25%) 473 ML TOPICAL SOLN TP SCH ×2 (09:35→21:48)
[2019-10-03] MEDS ORDERED: POTASSIUM CHLORIDE ER 20 MEQ TAB PO ONE (10:41)
[2019-10-03] MEDS: HYDROmorphone 1 MG/1 ML INJ IV PRN (18:12)
--- NOTE | 2019-10-03 18:48 | Progress Note ---
Assessment and Plan Cultures: Blood culture 09/29/2019 no growth today MRSA negative A/P: 59-year-old female past medical history diabetes, hypertension, metastatic breast cancer admitted with large necrotic wound. #Left shoulder necrotizing fascitis with abscess and presumed osteomyelitis: CT shows extensive subcutaneous gas in muscles of left shoulder and scapular area with air within the scapula and humural bone. S/p Wide excisional debridement of necrotizing fasciitis of left shoulder on 09/30/2019. Findings: Extensive necrotizing fasciitis of the left superior and posterior shoulder. Necrotic skin and subcutaneous tissue, muscle and fascia extending to the bone. Bone visible. Copious amount of purulent and grayish fluid #Diabetes: tight glycemic control for best outcomes. #Breast cancer: Not neutropenic. Wound likely secondary to cancer versus treatment. Recs: -agree with poor prognosis and consideration of hospice. After discussion with patient, patient wants to continue IV antibiotics which may help but would not cure extensive bone infection and necrosis. -Continue cefepime and metronidazole for now -Obtain wound swab - pending -patient wants palliative care -anticipate to d/c on cefepime 2 gm IV q 12 hour total 6 weeks until 11/11/2019 via port. Orders sent to [employer]. Lesly Coffey MD [facility] ([facility]) Office [phone] Subjective Date of service: 10/03/19 Principal diagnosis: Necrotizing Fasciitis left Shoulder Interval history: Feels ok, minimal pain at the shoulder level. Objective - Exam Narrative Exam: General: alert in NAD HEENT: BLANCA, clear OP CV: RRR Resp: CTA bobby MS: Left shoulder with surgical dressing and axillary dressing wound bed necrotic Neuro: alert non focal - Constitutional Vitals: Vital Signs Temp Pulse Resp BP Pulse Ox 97.8 F 88 20 93/53 98 10/03/19 04:49 10/03/19 04:49 10/03/19 18:12 10/03/19 04:49 10/03/19 04:49 Temperature -Last 24 Hours Temperature 97.8 F Temperature 97.9 F Temperature 98.3 F Temperature 98.3 F - Labs CBC & Chem 7: 10/03/19 03:59 10/03/19 03:59 Labs: Abnormal lab results 10/02/19 10/03/19 10/03/19 Range/Units 21:41 03:59 03:59 WBC 14.9 H (4.5-11.0) K/mm3 RBC 2.68 L (3.65-5.03) M/mm3 Hgb 8.8 L (10.1-14.3) gm/dl Hct 26.5 L (30.3-42.9) % MCV 99 H (79-97) fl MCH 33 H (28-32) pg RDW 20.0 H (13.2-15.2) % Plt Count 89 L (140-440) K/mm3 Sodium 132 L (137-145) mmol/L Potassium 3.1 L (3.6-5.0) mmol/L Creatinine 0.4 L (0.6-1.2) mg/dL Glucose 118 H (65-100) mg/dL POC Glucose 201 H (70-105) Calcium 6.1 L (8.4-10.2) mg/dL 10/03/19 10/03/19 Range/Units 12:03 15:38 WBC (4.5-11.0) K/mm3 RBC (3.65-5.03) M/mm3 Hgb (10.1-14.3) gm/dl Hct (30.3-42.9) % MCV (79-97) fl MCH (28-32) pg RDW (13.2-15.2) % Plt Count (140-440) K/mm3 Sodium (137-145) mmol/L Potassium (3.6-5.0) mmol/L Creatinine (0.6-1.2) mg/dL Glucose (65-100) mg/dL POC Glucose 196 H 209 H (70-105) Calcium (8.4-10.2) mg/dL
[2019-10-04] MEDS: SODIUM CHLORIDE 0.9% 1000 ML 1,000 ML IV SCH ×2 (02:55→10:30)
[2019-10-04] MEDS: HYDROmorphone 1 MG/1 ML INJ IV PRN ×4 (02:55→16:58)
[2019-10-04] MEDS: metroNIDAZOLE 500 MG TAB PO SCH ×2 (06:06→15:32)
[2019-10-04] MEDS: CEFEPIME/NS 2 GM/100 ML 2 GM/100 ML BAG IV SCH ×2 (06:07→15:26)
[2019-10-04] MEDS: DULoxetine 30 MG CAP PO SCH (10:24)
[2019-10-04] MEDS: INSULIN REGULAR SUB-Q SCH ×3 (10:24→16:59)
[2019-10-04] MEDS: PREGABALIN 75 MG CAP PO SCH (10:24)
--- NOTE | 2019-10-04 11:05 | Progress Note ---
Assessment and Plan Large Left axillary necrotic wound with abscess with subcu air and presumed osteomyelitis. Necrotizing fasciitis of left shoulder -S/P Wide excisional debridement of narcotizing fasciitis of left shoulder Sepsis due to Above Acute Hypoxic Respiratory failure Hyponatremia Hypokalemia Left upper extremity edema Diabetes Mellitus with hyperglycemia Breast cancer, metatatic Pain secondary to metastatic breast cancer - cont iv abx, supportive care - patient want hospice, CM consulted daily course: 09/30: Continue IMCU care, Pulmonary consult, continue antibiotics, obtain cxr, continue nebs. 10/01: Patient underwent debridement 09/29 and was managed in the ICU for 36 hrs due to Hypotension and Hypoxic Respiratory failure, she improved today with antibiotics but imaging studies obtain is concerning for extensive wound. Will discuss with surgeon if transfer is warranted. patient has had conversation about pallative care in the past, will proceed with reconsult for information with hospice and pallative team while awaiting call back from the oncologist Dr Garcia. Advance care planning discussion 30 mins 10/02: Discussed with patient's mother and with the patient. Patient wants to go home with hospice care. desktop manager consulted, PT consulted. Patient will be discharged home with hospice once arrangement is done. Physical exam: VITAL SIGNS: Reviewed. GENERAL: The patient appears normally developed, chronically ill-appearing, vital signs as documented. HEAD: No signs of head trauma. EYES: Pupils are equal. Extraocular motions intact. EARS: Hearing grossly intact. MOUTH: Oropharynx is normal. NECK: No adenopathy, no JVD. CHEST: Chest with diminished breath sounds bilaterally. No wheezes, rales, or rhonchi. CARDIAC: Regular rate and rhythm. S1 and S2, without murmurs, gallops, or rubs. VASCULAR: No Edema. Peripheral pulses normal and equal in all extremities. ABDOMEN: Soft, non tender and non distended. No rebound or guarding, and no masses palpated. Bowel Sounds normal. MUSCULOSKELETAL: Deformation of the left chest wall noted. Dressing, Status post mastectomy. Limited range of motion of left upper extremity with grossly enlarged size greater than 5 times the size of the right upper extremity. Significant pitting edema. NEUROLOGIC EXAM: Alert and oriented x 3 No focal sensory or strength deficits. Speech normal. Follows commands. PSYCHIATRIC: Mood normal. SKIN: Severe malodorous left shoulder extending to the axilla abscess with wound draining purulent secretions. Now cleaned out and dressing inplace Please see wound documentation Subjective Date of service: 10/03/19 Principal diagnosis: Necrotizing Fasciitis left Shoulder Interval history: Patient seen and examined. Medical records and medication list reviewed. No acute event overnight noted by the RN. Patient presented with extensive left upper extremity swelling and pain. Patient is tolerating diet. Requested for hospice Discussed plan of care at bedside with patient and also call patient mother for update. Objective - Constitutional Vitals: Vital Signs - 12hr 10/04/19 10/04/19 10/04/19 00:26 03:21 07:56 Temperature 98.0 F 98.3 F 98.0 F Pulse Rate 101 H 101 H 98 H Respiratory 20 20 18 Rate Blood Pressure 100/60 95/62 102/64 O2 Sat by Pulse 100 97 100 Oximetry - Labs CBC & Chem 7: 10/03/19 03:59 10/03/19 03:59 Labs: Abnormal lab results 10/03/19 10/03/19 10/03/19 Range/Units 12:03 15:38 22:18 POC Glucose 196 H 209 H 217 H (70-105) C-Reactive Protein (0.00-1.30) mg/dL 10/03/19 10/04/19 Range/Units 22:55 08:14 POC Glucose 140 H (70-105) C-Reactive Protein 9.20 H (0.00-1.30) mg/dL HEART Score - HEART Score Age: 45-65 Risk factors: 1-2 risk factors - Critical Actions Critical Actions: 0-3 pts:0.9-1.7%risk of adverse cardiac event.Candidate for discharge
[2019-10-04 11:43] VITALS: BP 111/71
[2019-10-04] MEDS ORDERED: oxyCODONE /ACETAMINOPHEN 5-325MG TAB PO PRN (14:14)
[2019-10-04] MEDS: SODIUM HYPOCHLORITE, DAKIN'S 1/2 STRENGTH (0.25%) 473 ML TOPICAL SOLN TP SCH (14:16)
--- NOTE | 2019-10-04 14:25 | Discharge Summary ---
Providers - Providers Date of Admission: 09/30/19 12:50 Date of discharge: 10/04/19 Attending physician: KALLI HERNANDEZ 09/30/19 06:00 Consult to Wound/ET Nurse [CONS] Routine Reason For Exam: wound eval 09/30/19 08:39 Consult to Physician [CONS] Routine Comment: Consulting Provider: SANDY SAVAGE Physician Instructions: Reason For Exam: infected metstatic Wound 09/30/19 12:51 Consult to Physician [CONS] Routine Comment: Consulting Provider: JESSE APONTE Physician Instructions: Reason For Exam: left shoulder abscess 09/30/19 13:57 Consult to Dietitian/Nutrition [CONS] Routine Physician Instructions: Reason For Exam: Reason for Consult: Pt needs oral supplement 10/03/19 10:39 Consult to Case Management [CONS] Routine Services Needed at Discharge: Other Notified:: case management Additional Physician Instructions: palliative care-eval and treat 10/03/19 13:46 Physical Therapy Evaluation and Treat [CONS] Routine Comment: Reason For Exam: difficulty ambulating, high fall risk 10/03/19 13:51 Physical Therapy Evaluation and Treat [CONS] Stat Comment: Reason For Exam: Wheel Chair and Transport 10/03/19 18:58 Consult to Case Management [CONS] Stat Services Needed at Discharge: Other Notified:: harmonica maker Additional Physician Instructions: [facility] ([facility]) [address] [place] [address] OUTPATIENT PARENTERAL ANTIBIOTIC THERAPY (OPAT) ORDERS Diagnoses: left scapular, humeral, sternal osteomyelitis Administer: cefepime 2 gm IV q 12 hour total 6 weeks until 11/11/2019 via port Line: Maintain IV access with weekly dressing changes and locks per protocol. Labs: Every Wednesday CBC, AST, ALT, Creatinine. Please fax results to [phone] and call [phone] for critical lab results. Lesly Coffey MD Infectious Diseases Case Making Machine Operator [facility] ([facility]) O: [phone] F: [phone] Primary care physician: VP SITE Hospitalization Condition: Stable Hospital course: 59-year-old female past medical history diabetes, hypertension, metastatic breast cancer admitted with large necrotic wound on left upper extremity. Patient empirically placed on vancomycin and Zosyn, left shoulder x-ray on admission showed large amount of subcutaneous air in the axilla, left shoulder region and left supraclavicular location. ID and general surgery was consulted, started on iv abx and patient was admitted for further evaluation and management. Radiological data: Left shoulder x-ray: There is a large amount of subcutaneous air in the left axilla and left shoulder region and left supraclavicular location CT Upper extremity: IMPRESSION: There is a large packed wound in the left shoulder area. There is extensive soft tissue gas within the muscle groups around the shoulder and scapula as well has air within the scapula and humerus indicating spread of infection into the bones. There is also air in the distal clavicle. There is air in the upper arm anteriorly predominantly in the subcutaneous fat. There is subcutaneous edema in the arm and shoulder. There is some fluid in the subcutaneous fat in the left posterior lateral chest wall with a small amount of soft tissue gas. This appears to communicate to the skin surface at several sites. Daily course: 09/30: Continue IMCU care, Pulmonary consult, continue antibiotics, obtain cxr, continue nebs. 10/01: Patient underwent debridement 09/29 and was managed in the ICU for 36 hrs due to Hypotension and Hypoxic Respiratory failure, she improved today with antibiotics but imaging studies obtain is concerning for extensive wound. Will discuss with surgeon if transfer is warranted. patient has had conversation about pallative care in the past, will proceed with reconsult for information with hospice and pallative team while awaiting call back from the oncologist Dr Garcia. Advance care planning discussion 30 mins 10/02: Discussed with patient's mother and with the patient. Patient wants to go home with hospice care. fitness manager consulted, PT consulted. Patient will be discharged home with hospice once arrangement is done. 10/03: DC home with hospice care on cefepime 2 gm IV q 12 hour total 6 weeks until 11/11/2019 via port. Orders sent to outpatient case manager. Discharge diagnosis; Large Left axillary necrotic wound with abscess with subcu air and presumed osteomyelitis. Necrotizing fasciitis of left shoulder -S/P Wide excisional debridement of narcotizing fasciitis of left shoulder Sepsis due to Above Acute Hypoxic Respiratory failure Hyponatremia Hypokalemia Left upper extremity edema Diabetes Mellitus with hyperglycemia Breast cancer, metatatic Pain secondary to metastatic breast cancer Physical exam: VITAL SIGNS: Reviewed. GENERAL: The patient appears normally developed, chronically ill-appearing, vital signs as documented. HEAD: No signs of head trauma. EYES: Pupils are equal. Extraocular motions intact. EARS: Hearing grossly intact. MOUTH: Oropharynx is normal. NECK: No adenopathy, no JVD. CHEST: Chest with diminished breath sounds bilaterally. No wheezes, rales, or rhonchi. CARDIAC: Regular rate and rhythm. S1 and S2, without murmurs, gallops, or rubs. VASCULAR: No Edema. Peripheral pulses normal and equal in all extremities. ABDOMEN: Soft, non tender and non distended. No rebound or guarding, and no masses palpated. Bowel Sounds normal. MUSCULOSKELETAL: Deformation of the left chest wall noted. Dressing, Status post mastectomy. Limited range of motion of left upper extremity with grossly enlarged size greater than 5 times the size of the right upper extremity. Significant pitting edema. NEUROLOGIC EXAM: Alert and oriented x 3 No focal sensory or strength deficits. Speech normal. Follows commands. PSYCHIATRIC: Mood normal. SKIN: Severe malodorous left shoulder extending to the axilla abscess with wound draining purulent secretions. Now cleaned out and dressing inplace Please see wound documentation Disposition: DC-50 TO HOSPICE (HOME) Time spent for discharge: 34 minutes Core Measure Documentation - Palliative Care Palliative Care/ Comfort Measures: Hospice Care - Core Measures Any of the following diagnoses?: none Exam - Constitutional Vitals: Temp Pulse Resp BP Pulse Ox 98.3 F 99 H 18 111/71 100 10/04/19 11:35 10/04/19 11:35 10/04/19 11:35 10/04/19 11:35 10/04/19 11:35 Plan Activity: up only with assistance Diet: diabetic Wound: per wound nurse instructions Additional Instructions: d/c on cefepime 2 gm IV q 12 hour total 6 weeks until 11/11/2019 via port. Follow up with: PRIMARY CARE, [Primary Care Provider] - 3-5 Days
[2019-10-05] MEDS ORDERED: NON-FORMULARY EACH (Duloxetine Hcl [Duloxetine Hcl] 60 MG) PO SCH (10:00)
[2019-10-05] MEDS ORDERED: PREGABALIN 75 MG CAP PO SCH (10:00)
[2019-10-05] MEDS ORDERED: DULoxetine 30 MG CAP PO SCH (10:00)
== END 2019-10-04 17:23 | disposition hospice, home (50) | DRG 853 ==
LOC: ED 18:00 → 3A 22:04 → OBSVTOIN 09-30 12:50 → CC1 09-30 19:25 → 4A 10-02 11:08
PROVIDERS: ADMIT Internal Medicine; ATTEND Internal Medicine
PROC: 0JBF0ZZ Excision of Left Upper Arm Subcutaneous Tissue and Fascia, Open Approach (ICD-10-PCS; principal; 2019-09-30)
DX: A41.9 Sepsis, unspecified organism (principal); J96.01 Acute respiratory failure with hypoxia; M72.6 Necrotizing fasciitis; L02.414 Cutaneous abscess of left upper limb; E87.1 Hypo-osmolality and hyponatremia; C79.81 Secondary malignant neoplasm of breast; E87.6 Hypokalemia; I10 Essential (primary) hypertension; E11.65 Type 2 diabetes mellitus with hyperglycemia; M19.90 Unspecified osteoarthritis, unspecified site; D64.9 Anemia, unspecified; E66.9 Obesity, unspecified; Z68.30 Body mass index [BMI] 30.0-30.9, adult; Z90.10 Acquired absence of unspecified breast and nipple
CPT/HCPCS: 36415; 71045; 80048; 80053; 80202; 82962; 83735; 85025; 85027; 85610; 86140; 87040; 87641; 94760; G0378; A4217; A6260; J0610; J0692; J1170; J1642; J1815; J2270; J2405; J2543; J2704; J3370; J3475; J3480; J3490; J7030; J7040; J7050; Q9967